=== PATIENT | male | born 1985 | race Caucasian/White ===

== ENCOUNTER 2020-01-06 15:16 | Outpatient (REF) | payer OTHER, SELFPAY | END 2020-01-06 15:17 | disposition home or self-care (01) | LOC: HO.LNP 15:16 | PROVIDERS: Visit Provider Family Medicine | DX: Z13.89 Encounter for screening for other disorder (principal) ==

== ENCOUNTER 2020-02-17 10:40 | Outpatient (REF) | payer OTHER, SELFPAY ==
[2020-02-17 12:43] LABS: SARS COV2 IgG Negative (Negative)
== END 2020-02-17 10:41 | disposition home or self-care (01) ==
LOC: HO.WFDLDS 10:40
PROVIDERS: PCP Internal Medicine; Visit Provider Family Medicine
DX: Z20.828 Contact with and (suspected) exposure to other viral communicable diseases (principal)
CPT/HCPCS: 86769

== ENCOUNTER 2020-02-26 10:39 | Outpatient (REF) | payer OTHER, SELFPAY ==
[2020-02-27 05:03] LABS: SARS COV2 IgG Negative (Negative)
== END 2020-02-26 10:40 | disposition home or self-care (01) ==
LOC: HO.WFDLDS 10:39
PROVIDERS: Visit Provider Family Medicine
DX: Z20.828 Contact with and (suspected) exposure to other viral communicable diseases (principal)
CPT/HCPCS: 86769; U0003

== ENCOUNTER 2020-03-17 10:39 | Outpatient (REF) | payer OTHER, SELFPAY ==
--- NOTE | 2020-03-17 14:54 | PFT_ITS ---
INDICATIONS: COVID-19 infection. SPIROMETRY: The FEV1 to FVC of 87% with an FEV1 of 5.56 L, which is 107% predicted with an FVC of 6.37 L, which is 98% predicted. No significant response to bronchodilators noted. Maximum voluntary ventilation 96% predicted. LUNG VOLUMES: Total lung capacity 98% predicted with residual volume of 77% predicted, and expiratory reserve volume of 87% predicted. DIFFUSION CAPACITY: DLCO 93% predicted. FLOW VOLUME LOOP: The patient does have a normal flow volume loop during the expiratory phase; however, does have some saw-tooth pattern and plateauing of the flows during the inspiratory flow suggesting of a dynamic extrathoracic upper airway obstruction or redundant tissue in the vocal cords or vocal cord dysfunction. COMPARISONS: None. INTERPRETATION: No obstructive nor restrictive ventilatory defects based on spirometry and lung volumes. No evidence of any response to bronchodilators. Normal maximum voluntary ventilation. Normal diffusion capacity. Again, based on flow volume loop, the patient may have some degree of an upper airway extrathoracic obstruction likely due to either vocal cord dysfunction or redundant tissue of the larynx resulting in the decrease inspiratory flow. Further evaluation warranted if the patient continues to be symptomatic with a pulmonary consultation. MD DIETER De La Torre/MODJacinda / [id number]
== END 2020-03-17 10:40 | disposition home or self-care (01) ==
LOC: HO.RESP 10:39
PROVIDERS: PCP Family Medicine; Visit Provider Family Medicine
DX: U07.1 COVID-19 (principal)
CPT/HCPCS: 94060; 94727; 94729

== ENCOUNTER 2020-04-01 11:01 | Outpatient (REF) | payer OTHER, SELFPAY ==
[2020-04-02 08:42] LABS: SARS COV2 IgG Negative (Negative)
== END 2020-04-01 11:02 | disposition home or self-care (01) ==
LOC: HO.WFDLDS 11:01
PROVIDERS: Visit Provider Family Medicine
DX: U07.1 COVID-19 (principal)
CPT/HCPCS: 36415; 86769; C9803; U0003; U0005

== ENCOUNTER → 2020-04-03 10:09 | Outpatient (REF) | payer OTHER, SELFPAY ==
--- NOTE | 2020-04-03 10:13 | CA_ITS ---
Transthoracic Echocardiogram Patient (Last, First, Middle): Natanael Lindsey, Gender: Male Date of : 1985 Age: 34 Procedure Date: 04/03/2020 Procedure Type: Transthoracic Echocardiogram Location: OP Height: 193.04 cm Weight: 106.6 kg BSA: 2.37 m2 Heart Rate: bpm BP: 110 / 76 mmHg Criminal Defense Attorney: CAITY Owen MD: Cezar Santiago MD Symptoms: U07.1 - COVID-19 Study Quality: Fair ECG Rhythm: Sinus Conclusions: - The left ventricular systolic function is mildly decreased. The calculated ejection fraction is 51% by biplane method. - No obvious valvular pathology seen on this study. Findings Left Ventricle Normal left ventricular cavity size. There is normal left ventricular wall thickness. The left ventricular systolic function is mildly decreased. The calculated ejection fraction is 51% by biplane method. There is mild global hypokinesis. Diastolic function is normal for age. Right Ventricle Normal right ventricular cavity size and systolic function. Atria The left atrium is normal in size. The right atrium is normal in size. Aortic Valve There is a normal trileaflet aortic valve. There is no aortic valve stenosis. There is no aortic valve regurgitation. Mitral Valve The mitral valve appears normal. There is no mitral valve regurgitation. There is no mitral valve stenosis. Pulmonic Valve The pulmonic valve was not well visualized. Tricuspid Valve Normal tricuspid valve structure. There is trace tricuspid valve regurgitation. The pulmonary artery systolic pressure is normal. Great Vessels The aortic annulus, sinuses of valsalva, asc aorta, and aortic arch are normal in size. Venous The inferior vena cava is mildly dilated and collapses greater than 50% with inspiration. Pericardium/Pleural There is no evidence of pericardial effusion. Prior Study Comparison No prior study available for comparison. Recommendations, Care & Conclusions No obvious valvular pathology seen on this study. Measurements M-Mode Liner Measurements Normals - Women/Men AOV Cusps: 2.20 1.5-2.6 cm/m2 2D Linear Measurements IVSd: 0.91 0.6-0.9/0.6-1.0 cm LVIDd: 5.28 3.9-5.3/4.2-5.9 cm LVIDd Index: 2.23 2.4-3.2/2.2-3.1 cm/m2 LVIDs: 3.67 2.0-3.6 cm LVPWd: 0.97 0.7-1.1 cm Ao Root: 3.00 2.1-3.5 cm LA Diam: 2.90 2.7-3.8/3.0-4.0 cm LAIDs Index: 1.22 1.5-2.3 cm/m2 LV Mass: 228.50 67-162/88-224 g LV Mass Index: 96.41 43-95/49-115 g/m2 LVOT Diam: 2.40 3.0+(-)1.3 cm 2D Systolic Function EF 4C: 57.20 >55% EF 2C: 46.40 >55% EF BiP: 50.70 >55% Mitral Valve MV Pk E: 0.87 MV PK A: 0.84 MV Decel Time: 190.00 E/A: 1.00 E'Lateral: 13.90 E'Medial: 10.30 E/E' Med: 8.50 E/E' Lat: 6.30 PHT: 56.00 MVA PHT: 3.93 Decel [place]: 4.59 Aortic Valve AoV Pk Siva: 1.23 AoV Pk Grad: 6.00 LVOT LVOT Pk Siva: 0.95 LVOT Mn Siva: 0.67 LVOT VTI: 0.19 LVOT Pk Grad: 4.00 LVOT Mn Grad: 2.00 LVOT Diam: 2.40 LVOT Area: 4.52 Diastolic Function MV Pk E: 0.87 MV Pk A: 0.84 E/A: 1.00 E'Medial: 10.30 E/E' Med: 8.50 E' Laterial: 13.90 E/E' Lat: 6.30 Tricuspid Valve TR Pk Siva: 1.89 TR Pk Grad: 14.00 RA Press: 8.00 RVSP: 22.00 Great Vessels Aorta Ao Root-2D: 3.00 2.0-3.7 cm Ao Asc: 3.10 2.1-3.4 cm Ao Arch: 2.30 Pulmonary Valve PV Pk Siva: 1.03 Peak PV Grad: 4.00 Updated in Other Vendor System with Status of Final Camron Burgess MD electronically signed on 04/04/2020 3:11:39 PM with status of Final
--- NOTE | 2020-04-03 10:13 | ECG_ITS ---
Test Reason : COVID Blood Pressure : / mmHG Vent. Rate : 096 BPM Atrial Rate : 096 BPM P-R Int : 160 ms QRS Dur : 104 ms QT Int : 368 ms P-R-T Axes : 063 043 036 degrees QTc Int : 464 ms Normal sinus rhythm Normal ECG No previous ECGs available Referred By: Cezar Santiago Electronically Signed By:YARIEL YEBOAH
== END ==
LOC: HO.CARD 10:09
PROVIDERS: PCP Family Medicine; Visit Provider Family Medicine
DX: U07.1 COVID-19 (principal)
CPT/HCPCS: 93005; 93306

== ENCOUNTER 2020-04-13 07:59 | Outpatient (REF) | payer OTHER, SELFPAY ==
[2020-04-13 10:55] LABS: Alanine Aminotransferase 27 U/L (0-40); Albumin Level 4.2 g/dL (3.5-5.0); Alkaline Phosphatase 56 U/L (39-117); Anion Gap 11 (12-20); Aspartate Amino Transferase 21 U/L (5-37); Bilirubin Total 1.1 mg/dL (0.0-1.0); Blood Urea Nitrogen 14 mg/dL (9-16); Calcium 9.1 mg/dL (8.4-10.2); Carbon Dioxide 32 mmol/L (22-29); Chloride 102 mmol/L (96-108); Estimated Glomerular Filt Rate > 60; Glucose Random 110 mg/dL (60-115); Potassium 3.9 mmol/L (3.3-5.1); Sodium 141 mmol/L (135-145); Total Protein 6.6 g/dL (6.5-8.0)
[2020-04-16 15:16] LABS: Testosterone, Free 110.4 pg/mL (35.0-155.0); Testosterone, Total 440 ng/dL (250-1100)
== END 2020-04-13 08:00 | disposition home or self-care (01) ==
LOC: HO.WFDLDS 07:59
PROVIDERS: PCP Family Medicine; Visit Provider Family Medicine
DX: Z00.00 Encounter for general adult medical examination without abnormal findings (principal); N62 Hypertrophy of breast
CPT/HCPCS: 36415; 80053; 84402; 84403; 84443

== ENCOUNTER 2020-04-23 10:15 | Outpatient (REF) | payer OTHER, SELFPAY | END 2020-04-23 10:16 | disposition home or self-care (01) | LOC: HO.XRAY 10:15 | PROVIDERS: Visit Provider Otolaryngology | DX: Z13.89 Encounter for screening for other disorder (principal) ==

== ENCOUNTER 2020-05-01 09:24 | Outpatient (REF) | payer OTHER, SELFPAY ==
--- NOTE | ~2020-05-01 | FL_ITS ---
PROCEDURE: FL BARIUM SWALLOW CLINICAL INFORMATION: Dysphagia. COMPARISON: None TECHNIQUE: Barium swallow examination is performed using fluoroscopic evaluation in addition to multiple fluoroscopic spot views. The patient is imaged both upright and prone and using both thick and thin sulfate along with effervescent granules. Fluoroscopy time: 1.9 minutes DAP: 20.756 Gycm2 Images: 54 FINDINGS: Following oral administration of thin, thick barium and barium-coated turkey in upright view there is normal propagation of bolus from the oral cavity through the pharynx, esophagus into stomach without any evidence of obstruction, narrowing or stricture. On placing patient prone lying and oral administration of thin barium there is good distention of esophagus without any hiatal hernia. There is mild gastroesophageal reflux in prone lying position. FL/FL barium swallow IMPRESSION: Mild gastroesophageal reflux without hiatal hernia.
== END 2020-05-01 09:25 | disposition home or self-care (01) ==
LOC: HO.XRAY 09:24
PROVIDERS: PCP Family Medicine; Visit Provider Otolaryngology
DX: R13.10 Dysphagia, unspecified (principal)
CPT/HCPCS: 74220

== ENCOUNTER 2020-05-26 15:23 | Outpatient (REF) | payer OTHER, SELFPAY ==
--- NOTE | ~2020-05-26 | XR_ITS ---
EXAMINATION: XR knee standing BI, XR knee LT 2V CLINICAL INFORMATION: Reason for Exam M25.561 - Pain in right knee COMPARISON: None available at the time of this dictation. TECHNIQUE: Bilateral frontal, left lateral patella sunrise view. FINDINGS: BONES: No fracture or dislocation is present. JOINTS: Medial and lateral joint spaces are preserved. SOFT TISSUE: Normal XR/XR knee standing BI IMPRESSION: Normal radiograph. Joint spaces are preserved. No joint effusion.
--- NOTE | ~2020-05-26 | XR_ITS ---
EXAMINATION: XR knee standing BI, XR knee LT 2V CLINICAL INFORMATION: Reason for Exam M25.561 - Pain in right knee COMPARISON: None available at the time of this dictation. TECHNIQUE: Bilateral frontal, left lateral patella sunrise view. FINDINGS: BONES: No fracture or dislocation is present. JOINTS: Medial and lateral joint spaces are preserved. SOFT TISSUE: Normal XR/XR knee LT 2V IMPRESSION: Normal radiograph. Joint spaces are preserved. No joint effusion.
== END 2020-05-26 15:24 | disposition home or self-care (01) ==
LOC: HO.HOSX 15:23
PROVIDERS: Visit Provider Orthopaedic Surgery
DX: M25.562 Pain in left knee (principal); M25.561 Pain in right knee
CPT/HCPCS: 73560; 73565

== ENCOUNTER → 2020-05-27 11:03 | Outpatient (BNVA) | payer OTHER, SELFPAY | PROVIDERS: PCP Family Medicine; Visit Provider Orthopaedic Surgery | DX: M22.2X2 Patellofemoral disorders, left knee (principal) | CPT/HCPCS: 99202 ==

== ENCOUNTER 2020-05-28 10:55 | Outpatient (REF) | payer OTHER, SELFPAY ==
--- NOTE | ~2020-05-28 | MM_ITS ---
EXAMINATION: MM DIAGNOSTIC DIGITAL BREAST TOMOSYNTHESIS, BILATERAL US BILATERAL BREAST ULTRASOUND CLINICAL INFORMATION: Hypertrophy of the breasts. COMPARISON: Mammography: None. TECHNIQUE: Digital breast tomosynthesis is performed in both the craniocaudal and mediolateral oblique views along with computer-aided detection (CAD). Synthesized 2D images are generated from the tomosynthesis. Bilateral breast ultrasound. FINDINGS: The breasts are almost entirely fatty (ACR BI-RADS breast composition Category a). There are no significant masses, abnormal calcifications, or other abnormalities. Bilateral breast ultrasound was then performed with no abnormal cystic or solid mass identified. No region of abnormal distal sound shadowing appreciated. Results are discussed with the patient at time of visit. MM/MM tomosynthesis diagnostic BI IMPRESSION: No specific mammographic or ultrasound findings to suggest malignancy. Mild gynecomastia. ASSESSMENT: BI-RADS 2: Benign. RECOMMENDATION: Clinical follow-up. This patient's information was entered into a reminder system with a target due date for their next mammogram.
--- NOTE | ~2020-05-28 | US_ITS ---
EXAMINATION: US DIAGNOSTIC ULTRASOUND BREAST, right breast CLINICAL INFORMATION: Hypertrophy. COMPARISON: Mammography of same day.. TECHNIQUE: Ultrasound of the breast is performed with real-time dia scale imaging and color Doppler. FINDINGS: Bilateral breast ultrasound was then performed with no abnormal cystic or solid mass identified. No region of abnormal distal sound shadowing appreciated. No edematous change identified. Results are discussed with the patient at time of visit. US/US breast RT limited IMPRESSION: No specific mammographic or ultrasound findings to suggest malignancy. Mild gynecomastia. ASSESSMENT: BI-RADS 2: Benign RECOMMENDATION: Clinical follow-up
--- NOTE | ~2020-05-28 | US_ITS ---
EXAMINATION: US DIAGNOSTIC ULTRASOUND BREAST, LEFT CLINICAL INFORMATION: Hypertrophy. COMPARISON: Mammography of same day. TECHNIQUE: Ultrasound of the breast is performed with real-time dia scale imaging and color Doppler. FINDINGS: Bilateral breast ultrasound was then performed with no abnormal cystic or solid mass identified. No region of abnormal distal sound shadowing appreciated. No edematous change within the parenchyma. Results are discussed with the patient at time of visit. US/US breast LT limited IMPRESSION: No specific mammographic or ultrasound findings to suggest malignancy. Mild gynecomastia. ASSESSMENT: BI-RADS 2: Benign RECOMMENDATION: Clinical follow-up
== END 2020-05-28 10:56 | disposition home or self-care (01) ==
LOC: HO.MAMMO 10:55
PROVIDERS: Visit Provider Family Medicine
DX: N62 Hypertrophy of breast (principal)
CPT/HCPCS: 76642; 77062; 77066

== ENCOUNTER 2020-06-24 10:00 | Outpatient (RCR) | payer OTHER, SELFPAY ==
--- NOTE | 2020-05-11 10:15 | MHC.PT.OD ---
[facility] [place] Office [place] Office [place] Office [address] Norma Lopez [address] [phone] F: [phone] F: [phone] F: [phone] F: [phone] Physical Therapy Daily Note Diagnosis: M25.562 Pain in L knee M25.561 Pain in R knee referred to PT from PCP Dr. Santiago 04/24/20 Date of Surgery: NA Date of Evaluation: 05/04/20 Date of Treatment: 05/11/20 Treatments to Date: 3 Cancellations to Date: 0 No Shows to Date: Authorized Visits: 1 Insurance End Date: Precautions/ Contraindications:NONE SPECIFIED Subjective: Pt reports having lack of confidence with descending stairs when carrying his daughter; has an appt with PCP today re: RTW status. Pain Score and Location: 3 L>R Objective Flowsheet: Tests & Measures Rates pain sometimes increases to 7/10 when kneeling/loading L knee Reports 2-3/10 at rest Exercises UPRIGHT BIKE SEAT HEIGHT 10 [address]AT ALMOST ALL THE WAY BACK LEVEL 4 X 10 MIN WARM UP. REV OF Kneeling psoas hip flexor stretch while KNEELING on airex, modified prone lying psoas stretch on table x 30 sec holdS B, Prone quad stretch with strap x 4R x 20 sec hold. LONGSIT HS STRETCH; HL FIG 4 PIRIFORMIS STRETCH, STRENGTHENING OF SLR full ROM with eccentric hold on lower x 5 sec, SL hip adduction x 2 sets 10R Physioball bridge with 5 sec hold x 2 sets 10R, Prone hip extension with blue theraband around ankle x 2 sets 10R over pball Would benefit from progression core/hip dynamic lumbar stab with progression to CKC as toleated Standing 4 way hip Wall squat as pt has poor ability weight shifting // pball wall squat/weight shifting Trial of eccentric heel touch on 6 inch- poor control and pain verbalized - pt noted to compensate with trunk- reduced to 4 inch and later 2 inch with improved ability completed 2 sets 10R with 2 inch on L, R able to complete 6 inch without evidence of instability/pain Pt requesting to hold on taping today- wishes to to shave his knee Did verbalize improvement/reduction in sx with taping last session. 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 He exhibits decreased L SLS control during activities challenged with lateral 2 inch step downs on the L LE vs R LE. He exhibits some symptoms of lower back weakness and was challenged with dynamic stabilization tasks in the clinic today. He was encouraged to increase the frequency of his quad and HS stretching. He received taping trial of offload the tibiofemoral joint with (+) response last time; will be showing him how to tape himself for home however pt deferred tape today. He exhibits slight lateral tracking of his patellar and would benefit from continued therapy at a frequency 2x/week x 4 weeks to meet STG/LTG, progress CKC, and resume ability to jog>run confidently. PT Plan: CONTINUE WITH LE STRETCHING; dynamic/CKC STRENGTHENING as tolerated , ASSESS TAPE and educate for self care Short Term Goals: 1. Negative Cezar test for quadriceps/psoas. 2. Strength SLR 5/5 B with no pain in lumbar region. 3. Demonstrate functional squat with no posterior LOB. 4. Resume gym activities with MOD I joint protection measures. Group Home Goals: 1. Negotiate stairs reciprocally with good dynamic balance. 2. RTW full duty with knee pain <2/10. 3. Strength hip ext 5/5 (-) lumbar instability testing. Electronically signed by: Karen SERNA, PT, DPT
--- NOTE | 2020-05-22 13:28 | MHC.PT.OD ---
[facility] [place] Office [place] Office [place] Office [address] Norma Lopez [address] [phone] F: [phone] F: [phone] F: [phone] F: [phone] Physical Therapy Daily Note Diagnosis: M25.562 Pain in L knee M25.561 Pain in R knee referred to PT from PCP Dr. Santiago 04/24/20 Date of Surgery: NA Date of Evaluation: 05/04/20 Date of Treatment: 05/20/20 Treatments to Date: 5 Cancellations to Date: 1 No Shows to Date: Authorized Visits: 1 Insurance End Date: Precautions/ Contraindications:NONE SPECIFIED Subjective: Pt REPORTS MOST PROBLEM WITH L KNEE IS INN STAIRS Pain Score and Location: 4 L KNEE Objective Flowsheet: Tests & Measures Rates pain sometimes increases to 7/10 when kneeling/loading L knee Reports 2-3/10 at rest Exercises UPRIGHT BIKE SEAT HEIGHT [address] BACK LEVEL 4 X 10 MIN WARM UP. QUAD SET L (REPORTING POP) SO KT FOR PAT REALIGN THEN CONTINUED WITH QUAD WORK (LESS POP NOTED), SLR,SLR WITH HIP ER,HL HIP ADD X 10 R EA, ITB STRETCH IN STAND AND SL FOR L, STEP UPS ON 6 INCH STEP, LUNGE L WITH TOE TAPS R ON 6 INCH STEP X [address] HIP WITH RED TB X 20 R EA DIRECTION B, LUNGE POSITION ON 6 INCH STEP FOR TAP UPS R AND L ANT AND LAT, SLS R AND L ON BLUE FOAM PD FOR 3 WAY UPPER BODY WORK WITH RED TB X 20 EA DIRECTION,WALL SLIDE X 3 SETS OF 10, LUNGES ON BOSU (BLUE SIDE) X 2 SETS OF 10 (Pt REPORTS UNABLE TO DO 3RD SET BECAUSE OF PAIN/FATIGUE L KNEE), BOSU BLACK SIDE UP FOR BALANCED SQUAT X 2 MIN, SEATED SELF TB ROLLER L QUAD AT END OF SESSION F/B KT (PER Pt REQUEST/KNEE NOT SHAVED) FOR L KNEE (TO UNLOAD FAT PAD WITH 3 I STRIPS TO FORM V AND U (Pt WOULD LIKE TO TRY ON OWN AT HOME BECAUSE HE REPORTS SOME RELIEF ON STAIRS IASTM HG 7 AND HG 9 DISTAL QUAD (ERYTHEMA RESPONSE RECTUS FEMORIS), KT FOR L KNEE TO DECREASE LAT TILT, INF TILT, AND SLIGHT ER WITH ED RE WEAR AND REMOVAL AND IF RELIEF TO SHAVE FOR NEXT VISIT (ELENA SUTHERLAND) Modalities Assessment: LESS POP WITH QUAD WORK WITH TAPE BUT STILL SOME IN STAND (?MENISCUS INVOLVEMENT) PT Plan: ASSESS STAIRS AT HOME WITH TAPE, CONTINUE WITH LE STRETCHING; dynamic/CKC STRENGTHENING as tolerated , ASSESS TAPE and educate for self care Short Term Goals: 1. Negative Cezar test for quadriceps/psoas. 2. Strength SLR 5/5 B with no pain in lumbar region. 3. Demonstrate functional squat with no posterior LOB. 4. Resume gym activities with MOD I joint protection measures. Care Home Goals: 1. Negotiate stairs reciprocally with good dynamic balance. 2. RTW full duty with knee pain <2/10. 3. Strength hip ext 5/5 (-) lumbar instability testing. Electronically signed by: RAY COOPER PT
--- NOTE | 2020-05-25 11:23 | MHC.PT.OD ---
[facility] [place] Office [place] Office [place] Office [address] Norma Lopez [address] [phone] F: [phone] F: [phone] F: [phone] F: [phone] Physical Therapy Daily Note Diagnosis: M25.562 Pain in L knee M25.561 Pain in R knee referred to PT from PCP Dr. Santiago 04/24/20 Date of Surgery: NA Date of Evaluation: 05/04/20 Date of Treatment: 05/25/20 Treatments to Date: 6 Cancellations to Date: 1 No Shows to Date: Authorized Visits: 1 Insurance End Date: Precautions/ Contraindications:NONE SPECIFIED Subjective: Pt reports pain is persisting when descending stairs on L knee, has pain with loading L knee for squat at 90 degrees. Pain Score and Location: 4 L KNEE Objective Flowsheet: Tests & Measures Not carrying anything 1-2/10 when carrying 3-5/10 Exercises UPRIGHT BIKE SEAT HEIGHT 11 SEAT ALL THE WAY BACK LEVEL 4 X 10 MIN WARM UP. Review of kneeling psoas stretch on table x 4R, 3 way SLR (hip add/ext/flex) x 2 sets Step up onto 6 inch step with L LE in stance hip ext/laterally, Heel touch off 4 inch step L LE in stance Step up 6 inch with pulses posterior/laterally x 10R each. Bridge on pball with head on mat x 20R with cues for core control Triple thread bridge HS curl combo x 10R with report of L/S fatigue reported. Reviewed prevously issued HEP with education to add mini wall squat to 45 as long as NOT painful ROM. Encouraged ongoing stretches for HS, hip flexor. Blue side bosu up ( L LE in front) with airex pad in back) Modified lunge with goal 90/90 with use of UE support x 5 reps with cues for alignment/form weight shift.Pt unable to perform with L LE back full ROM due to pain. Pt challenged with air squat and loses his balance posteriorly when he has GER more narrow than shoulder width. Trial of Whitney tape for medial glide with improved tolerance for mini squat on wall to 45. Pt stressed need to be able to squat to 90- shortly after trial of squatting 90 medial knee pain reported despite trial of whitney tape trial. Modalities Assessment: Pt has attended 5 sessions to date, verbalizing ongoing concern; states L LE not as stable. He reports anterior medial knee pain joint line, denies tenderness to palpation- present with increased loading or weight-bearing of L knee. Limited tolerance for L SLS exercise tasks which involve loading of L LE. He reports pain with end range flexion medial joint line. He was trialed with Whitney taping today in effort to improve medial tracking of patella with limited change (was able to squat a few reps to 90 but then sx returned). Pt reports inability to load, weight bear through his L or descend stairs with full confidence while carrying something. Pt may benefit from referral to orthopedist ? 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 ? meniscal involvement. Pt to see Dr. Santiago re: ?RTW following session today. He does demonstrate some improvement in quad strength when compared to previous assessment during SLR. PT Plan: See Dr. Santiago, ? RTW, ? refer to orthopedics. Await plan Short Term Goals: 1. Negative Cezar test for quadriceps/psoas. 2. Strength SLR 5/5 with no pain in lumbar region/ Technical Systems Architect Goals: Negotiate stairs with good dynamic balance. 2. RTW full duty with kne pain <2/10. Electronically signed by: Karen Briceño, PT, DPT
== END 2020-08-07 12:44 | disposition other institution (70) ==
LOC: HO.PTWFD 10:00
PROVIDERS: Visit Provider Family Medicine
DX: M25.561 Pain in right knee (principal); M25.562 Pain in left knee
CPT/HCPCS: 97110; 97140; 97162; 97530; 97535

== ENCOUNTER → 2020-08-05 13:16 | Outpatient (BNVA) | payer OTHER, SELFPAY | PROVIDERS: PCP Family Medicine; Visit Provider Internal Medicine Endocrinology, Diabetes & Metabolism | DX: N62 Hypertrophy of breast (principal) | CPT/HCPCS: 99202 ==

== ENCOUNTER 2020-08-07 08:19 | Outpatient (REF) | payer OTHER, SELFPAY ==
[2020-08-07 09:38] LABS: Alanine Aminotransferase 27 U/L (0-40); Albumin Level 4.6 g/dL (3.5-5.0); Alkaline Phosphatase 64 U/L (39-117); Aspartate Amino Transferase 32 U/L (5-37); Bilirubin Direct 0.4 mg/dL (0.0-0.5); Bilirubin Total 0.8 mg/dL (0.0-1.0); Total Protein 7.2 g/dL (6.5-8.0)
[2020-08-07 10:00] LABS: Free T4 (Free Thyroxine) 0.93 ng/dL (0.71-1.85)
[2020-08-08 08:32] LABS: HCG Tumor Marker <3 mIU/mL (<5)
[2020-08-08 09:17] LABS: Sex Hormone Binding Globulin 21 nmol/L (10-50)
[2020-08-08 16:56] LABS: Follicle Stimulating Hormone 1.6 mIU/mL (1.6-8.0); Lutenizing Hormone 4.7 mIU/mL (1.5-9.3); Prolactin 5.5 ng/mL (2.0-18.0)
[2020-08-11 12:01] LABS: Alpha Fetoprotein 0.8 ng/mL (<6.1)
[2020-08-12 16:46] LABS: Testosterone-Albumin 4.6 g/dL (3.6-5.1); Testosterone-Bioavailable 232.2 ng/dL (110.0-575.0); Testosterone-Free 110.6 pg/mL (46.0-224.0); Testosterone-SHBG 19 nmol/L (10-50); Testosterone-Total 536 ng/dL (250-1100)
[2020-08-13 19:32] LABS: Testosterone, Free 125.3 pg/mL (35.0-155.0); Testosterone, Total 562 ng/dL (250-1100)
[2020-08-15 01:12] LABS: Estradiol Free 1.03 pg/mL; Estradiol, Ultrasensitive 40 pg/mL
== END 2020-08-07 08:20 | disposition home or self-care (01) ==
LOC: HO.LAB 08:19
PROVIDERS: PCP Family Medicine; Visit Provider Internal Medicine Endocrinology, Diabetes & Metabolism
DX: N62 Hypertrophy of breast (principal)
CPT/HCPCS: 36415; 80076; 82105; 82670; 82672; 82681; 83001; 83002; 84146; 84270; 84402; 84403; 84439; 84443; 84702

== ENCOUNTER 2020-08-25 08:31 | Outpatient (REF) | payer OTHER, SELFPAY ==
[2020-08-26 10:01] LABS: Sex Hormone Binding Globulin 27 nmol/L (10-50)
[2020-09-02 15:01] LABS: Estrogen 117.7 pg/mL (60-190)
[2020-09-03 01:07] LABS: Estradiol Free 0.78 pg/mL; Estradiol, Ultrasensitive 28 pg/mL
== END 2020-08-25 08:32 | disposition home or self-care (01) ==
LOC: HO.LAB 08:31
PROVIDERS: PCP Family Medicine; Visit Provider Internal Medicine Endocrinology, Diabetes & Metabolism
DX: N62 Hypertrophy of breast (principal)
CPT/HCPCS: 36415; 82670; 82672; 82681; 84270

== ENCOUNTER 2020-08-27 13:28 | Outpatient (REF) | payer OTHER, SELFPAY ==
--- NOTE | ~2020-08-27 | US_ITS ---
EXAMINATION: US SCROTUM CLINICAL INFORMATION: Hypertrophy of breast. COMPARISON: None TECHNIQUE: A sonogram of the scrotum was performed assessing dia-scale appearance and color Doppler flow. Spectral Doppler analysis of the arterial and venous flow were performed in the testes bilaterally. FINDINGS: RIGHT: Right testicle measures 5.2 x 2.4 x 3.1 cm, volume 19.9 mL. No focal testicular parenchymal lesions are visualized. Spectral Doppler analysis of the arterial and venous flow is normal in the right testis. Right epididymal head is normal in size. No right hydrocele or varicocele is seen. Right epididymal Doppler flow is normal. LEFT: Left testicle measures 4.7 x 2.7 x 3.5 cm, volume 23.3 mL. No focal testicular parenchymal lesions are visualized. Spectral Doppler analysis of the arterial and venous flow is normal in the left testis. Left epididymal head is normal in size. No left hydrocele or varicocele is seen. Left epididymal Doppler flow is normal. US/US scrotum IMPRESSION: Normal scrotal ultrasound.
== END 2020-08-27 13:29 | disposition home or self-care (01) ==
LOC: HO.US 13:28
PROVIDERS: Visit Provider Internal Medicine Endocrinology, Diabetes & Metabolism
DX: N62 Hypertrophy of breast (principal)
CPT/HCPCS: 76870

== ENCOUNTER → 2020-09-02 13:18 | Outpatient (BNVA) | payer OTHER, SELFPAY | PROVIDERS: PCP Family Medicine; Visit Provider Internal Medicine Endocrinology, Diabetes & Metabolism ==

== ENCOUNTER 2020-11-12 07:25 | Outpatient (REF) | payer OTHER, SELFPAY ==
[2020-11-12 12:06] LABS: Cholesterol 130 mg/dL; HDL Cholesterol 44 mg/dL; LDL Cholesterol Calculated 77 mg/dl; Triglycerides 45 mg/dL
[2020-11-12 12:30] LABS: HBS Num1 > 1000.00 mIU/mL (0-7.99); HBc Num1 0.06 S/CO (0.00-0.79); HBsAGNum1 0.24 S/CO (0.00-0.99); HIV AB/AG Nonreactive (Nonreactive); HIV Num 1 0.09 S/CO (0.00-0.99); Hepatitis B Core Antibody Nonreactive (Nonreactive); Hepatitis B Surface Antigen Negative (Negative); ~HepC Num1 0.13 S/CO (0.00-0.79); ~Hepatitis B Surface Antibody REACTIVE (Nonreactive); ~Hepatitis C Antibody Nonreactive (Nonreactive)
[2020-11-13 10:23] LABS: Syphilis Screen Nonreactive (Nonreactive)
== END 2020-11-12 07:26 | disposition home or self-care (01) ==
LOC: HO.WFDLDS 07:25
PROVIDERS: Visit Provider Family Medicine
DX: Z00.00 Encounter for general adult medical examination without abnormal findings (principal); Z11.3 Encounter for screening for infections with a predominantly sexual mode of transmission; Z11.4 Encounter for screening for human immunodeficiency virus [HIV]
CPT/HCPCS: 36415; 80061; 86704; 86706; 86780; 86803; 87340; 87389

== ENCOUNTER 2020-12-29 13:35 | Outpatient (REF) | payer OTHER, SELFPAY ==
--- NOTE | ~2020-12-29 | XR_ITS ---
EXAMINATION: XR FOOT, LEFT CLINICAL INFORMATION: Pain in the third metatarsal area. COMPARISON: None TECHNIQUE: AP, lateral, and oblique views of the left foot. FINDINGS: There is no fracture or dislocation. There is irregularity along the medial base of the third digit proximal phalanx with minimal adjacent ossification or calcification. This is of uncertain etiology. This does not have an acute appearance. This could be associated with previous trauma. Joint spaces are maintained. Soft tissues are unremarkable. XR/XR foot LT min 3V IMPRESSION: Mild irregularity at the medial base of the third digit proximal phalanx with adjacent soft tissue calcification or ossification. This is of uncertain etiology. This could be associated with prior trauma. No acute abnormality.
[2020-12-30 09:05] LABS: HBS Num1 > 1000.00 mIU/mL (0-7.99); HBc Num1 0.07 S/CO (0.00-0.79); HBsAGNum1 0.17 S/CO (0.00-0.99); HIV AB/AG Nonreactive (Nonreactive); HIV Num 1 0.05 S/CO (0.00-0.99); Hepatitis A Antibody IgM 0.15 Index (0-0.79); Hepatitis B Core Antibody Nonreactive (Nonreactive); Hepatitis B Surface Antigen Negative (Negative); ~Hepatitis A Antibody IgM Nonreactive (Nonreactive); ~Hepatitis B Surface Antibody REACTIVE (Nonreactive); ~Hepatitis C Antibody Nonreactive (Nonreactive)
== END 2020-12-29 13:36 | disposition home or self-care (01) ==
LOC: HO.XRAY 13:35
PROVIDERS: PCP Family Medicine; Visit Provider Hospitalist
DX: M79.675 Pain in left toe(s) (principal); Z20.2 Contact with and (suspected) exposure to infections with a predominantly sexual mode of transmission
CPT/HCPCS: 36415; 73630; 86704; 86706; 86709; 86803; 87086; 87340; 87389

== ENCOUNTER 2020-12-29 15:40 | Outpatient (REF) | payer OTHER, SELFPAY ==
[2020-12-30 10:10] LABS: CT PCR NOT DETECTED (Not Detect.); NG PCR NOT DETECTED (Not Detect.)
== END 2020-12-29 15:41 | disposition home or self-care (01) ==
LOC: HO.LAB 15:40
PROVIDERS: Visit Provider Hospitalist
DX: Z20.2 Contact with and (suspected) exposure to infections with a predominantly sexual mode of transmission (principal)
CPT/HCPCS: 87491; 87591

== ENCOUNTER → 2020-12-31 13:29 | Outpatient (BNVA) | payer OTHER, SELFPAY | PROVIDERS: PCP Family Medicine; Visit Provider Internal Medicine ==

== ENCOUNTER 2021-01-04 07:46 | Outpatient (REF) | payer OTHER, SELFPAY ==
[2021-01-04 08:46] LABS: Alanine Aminotransferase 35 U/L (0-40); Albumin Level 4.2 g/dL (3.5-5.0); Alkaline Phosphatase 48 U/L (39-117); Anion Gap 10 (12-20); Aspartate Amino Transferase 39 U/L (5-37); Bilirubin Total 0.8 mg/dL (0.0-1.0); Blood Urea Nitrogen 15 mg/dL (9-16); Carbon Dioxide 27 mmol/L (22-29); Chloride 107 mmol/L (96-108); Estimated Glomerular Filt Rate > 60; Glucose Random 93 mg/dL (60-115); Potassium 4.2 mmol/L (3.3-5.1); Sodium 140 mmol/L (135-145); Total Protein 6.5 g/dL (6.5-8.0)
[2021-01-04 09:09] LABS: Free T4 (Free Thyroxine) 0.76 ng/dL (0.71-1.85); Thyroid Stimulating Hormone 1.73 uIU/mL (0.32-4.0)
[2021-01-04 09:27] LABS: Cortisol Random 11.2 ug/dL
[2021-01-05 09:00] LABS: HCG Tumor Marker <3 mIU/mL (<5)
[2021-01-05 20:01] LABS: Follicle Stimulating Hormone 2.5 mIU/mL (1.6-8.0); Lutenizing Hormone 10.3 mIU/mL (1.5-9.3); Prolactin 6.2 ng/mL (2.0-18.0)
[2021-01-05 21:52] LABS: Adrenocorticotropic Hormone 21 pg/mL (6-50)
[2021-01-05 22:16] LABS: DHEA Sulfate 300 mcg/dL (106-464); Sex Hormone Binding Globulin 30 nmol/L (10-50)
[2021-01-07 12:41] LABS: IGF-1 (Somatomedin C) 114 ng/mL (53-331); IGF-1 Z Score (Male) -0.5 SD (-2.0 - +2.0)
[2021-01-10 11:36] LABS: Testosterone, Free 214.3 pg/mL (35.0-155.0); Testosterone, Total 940 ng/dL (250-1100)
[2021-01-11 14:30] LABS: Estrogen 216.2 pg/mL (60-190)
[2021-01-14 22:02] LABS: Estradiol Free 1.81 pg/mL; Estradiol, Ultrasensitive 63 pg/mL
== END 2021-01-04 07:47 | disposition home or self-care (01) ==
LOC: HO.LAB 07:46
PROVIDERS: Internal Medicine; PCP Family Medicine; Visit Provider Family Medicine
DX: R79.89 Other specified abnormal findings of blood chemistry (principal)
CPT/HCPCS: 36415; 80053; 82024; 82533; 82627; 82670; 82672; 82681; 83001; 83002; 84146; 84270; 84305; 84402; 84403; 84439; 84443; 84702

== ENCOUNTER 2021-01-05 07:20 | Outpatient (REF) | payer OTHER, SELFPAY ==
[2021-01-05 09:43] LABS: Cortisol Random < 1.0 ug/dL
[2021-01-06 22:22] LABS: Adrenocorticotropic Hormone 5 pg/mL (6-50)
[2021-01-13 10:17] LABS: Dexamethasone 116 ng/dL
== END 2021-01-05 07:21 | disposition home or self-care (01) ==
LOC: HO.LAB 07:20
PROVIDERS: PCP Family Medicine; Visit Provider Internal Medicine
DX: N62 Hypertrophy of breast (principal)
CPT/HCPCS: 36415; 80299; 82024; 82533

== ENCOUNTER → 2021-01-28 08:53 | Outpatient (BNVA) | payer OTHER, SELFPAY | PROVIDERS: PCP Family Medicine; Visit Provider Physician Assistant ==

== ENCOUNTER 2021-07-05 11:10 | Outpatient (REF) | payer OTHER, SELFPAY ==
[2021-07-05 11:50] LABS: Influenza A PCR POSITIVE (Negative); Influenza B PCR NEGATIVE (Negative); Resp Syncy Virus RNA Qual PCR NEGATIVE (Negative); SARS COV2 PCR INHOUSE NEGATIVE (Negative)
== END 2021-07-05 11:11 | disposition home or self-care (01) ==
LOC: HO.LNP 11:10
PROVIDERS: Visit Provider Family Medicine
DX: Z20.822 Contact with and (suspected) exposure to COVID-19 (principal); R05.9 Cough, unspecified
CPT/HCPCS: 0241U

== ENCOUNTER 2022-10-27 13:47 | Outpatient (AMB) | payer OTHER, SELFPAY ==
--- NOTE | 2022-10-27 13:51 | MHC.PC.OV ---
Vital Signs 10/27/22 13:52 Height 6 ft 4 in Weight 268 lb BMI 32.6 BP 98/62 Blood Pressure Location Lt brachial Position Sitting Pulse 79 Pulse Source Pulse Oximeter Pulse Oximetry (%) 98 Oxygen Delivery Method Room Air Intake Visit Reasons: CPE with f/u labs and health maintenance Intake Note: Patient is here for his physical and 2 referrals, and [employer] denied short term disability. He needs letter stating why he needed short term disability Allergies No Known Allergies Allergy (Verified 08/11/22 14:31) Tobacco use date assessed: 10/27/22 Dental Screening Dental Screen Date: 10/27/22 Did you have a dental visit in the last 12 months?: Yes Did you have a dental problem in the last 6 months where you did not have access to dental care?: No Was dental information given to patient?: Patient has dentist HPI CPE with f/u labs and health maintenance HPI Details 37 y/o male presents for a CPE with f/u labs and health maintenance. No recent labs to review. Pt scores high for depression/anxiety today. He reports [employer] denied short term disability and needs a letter stating why he needs short term disability. Sun damage Lumbar spine He has been eating a healthy diet with vegetables. He has been exercising quite a bit. He reports exercise has been helping for his anxiety/depression. He is on citalopram 20mg daily. He notes he thinks this is helping. [facility] Medical History High serum estradiol Surgical History History of surgery Family History Mother No problems noted. Father No problems noted. 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 1. Little interest or pleasure in doing things: several days 2. Feeling down, depressed, or hopeless: several days 3. Trouble falling or staying asleep, or sleeping too much: nearly every day 4. Feeling tired or having little energy: more than half the days 5. Poor appetite or overeating: more than half the days 6. Feeling bad about yourself - or that you are a failure or have let yourself or your family down: more than half the days 7. Trouble concentrating on things, such as reading the newspaper or watching television: more than half the days 8. Moving or speaking so slowly that other people could have noticed. Or the opposite - being so fidgety or restless that you have been moving around a lot more than usual: more than half the days 9. Thoughts that you would be better off or of hurting yourself in some way: not at all Total score: 15 Depression Screening Interpretation: Positive [id number] - PHQ-9 Billing: Yes Source: Developed by Drs. Natanael Horta, Deandra Diaz, Frank Willis and colleagues, with an educational austin from [employer]. Thrive Questionnaire Date Thrive assessed: 03/16/21 SWATHI-7 AMB Questionnaire SWATHI-7 Date SWATHI - 7 assessed: 04/08/22 Feeling nervous, anxious, or on edge: 2 = More than half the days Not being able to stop or control worryin = More than half the days Worrying too much about different things: 3 = Nearly every day Trouble relaxin = Nearly every day Being so restless that it is hard to sit still: 2 = More than half the days Becoming easily annoyed or irritable: 2 = More than half the days Feeling afraid as if something awful might happen: 2 = More than half the days Total SWATHI-7 score (0-4 normal; 5-9 mild; 10-14 moderate; 15-21 severe): 16 Source: Developed by Drs. Natanael Horta, Frank Cabral and colleagues, with an educational austin from [employer]. SWATHI-7 Assessment Billing SWATHI-7 Assessment Tool: SWATHI-7 Assessment 32811 Review of Systems Const Denies chills, Denies fatigue, Denies fever(s), Denies headache(s) and Denies weakness Eyes Denies change in vision ENT Denies dizziness, Denies headache(s), Denies hearing loss, Denies nasal congestion, Denies sinus pain, Denies sinus pressure and Denies sore throat Card Denies chest pain, Denies lightheadedness, Denies dyspnea and Denies other (palpitations) Resp Denies cough, Denies dyspnea and Denies wheezing GI Denies abdominal pain, Denies melena, Denies hematochezia, Denies change in bowel habits, Denies dyspepsia and Denies nausea Denies hematuria and Denies dysuria Musc Denies abnormal gait, Denies myalgias, Denies arthralgias, Denies numbness and Denies tingling Skin/Breast Denies rash, Denies unusual bruising and Denies wounds Neuro Denies abnormal gait, Denies dizziness, Denies headache(s), Denies memory loss, Denies numbness, Denies Sensory deficit (Neuro), Denies tingling and Denies weakness Psych Reports anxiety, Reports depression and Denies memory loss Endo Denies cold intolerance, Denies fatigue, Denies heat intolerance, Denies polydipsia and Denies polyuria Ori/Lymph Denies easy bleeding and Denies easy bruising Aller/Immun Denies wheezing Physical exam (Primary Care) Vital Signs: Last Vital Signs Pulse 79 10/27/22 13:52 BP 98/62 10/27/22 13:52 Pulse Ox 98 10/27/22 13:52 Oxygen Delivery Method Room Air 10/27/22 13:52 BMI result Body Mass Index 32.6 Tobacco/Smoking Status: Tobacco use Status Tobacco use date assessed 10/27/22 10/27/22 13:59 Patient Tobacco Use Status Never used Tobacco 10/27/22 13:59 e-Cigarette/Vaping Use Never Used 10/27/22 13:59 PHQ-9: PHQ-9 Score PHQ-9: Total score 15 10/27/22 14:20 Depression Screening Interpretation: Positive Thrive Assessment: Date of Thrive Assessment Date Thrive assessed 03/16/21 10/27/22 13:59 Const General: no acute distress, well developed, alert and awake Nutritional Appearance: well nourished Orientation/consciousness: patient oriented x3 HENMT Head: Yes normocephalic and Yes atraumatic Ears: hearing grossly normal bilaterally and TM's normal bilaterally General nose exam: Normal external nose present and Normal nares present Mouth: Normal oral and palatal mucosa present and moist mucous membranes Teeth and gingiva: dentition normal Throat: Yes posterior oropharynx normal Eyes General: appearance normal, both eyes and all related structures Pupils: Equal, round and reactive pupils present and Pupil accommodation reflex normal EOM: EOMs intact bilaterally Neck Neck: Yes normal visual inspection, Yes no lymphadenopathy and Yes trachea midline Thyroid: Thyroid normal Carotids: no bruits Lymphatic: no lymphadenopathy noted Chest Chest palpation & inspection: normal inspection of the chest Resp Effort & Inspection: normal respiratory effort Auscultation: clear to auscultation bilaterally Cardio Rate: regular rate Rhythm: regular rhythm Heart sounds: S1 normal heart sound present, S2 normal heart sound present, no gallops, no murmurs and no rubs Bruits: no abdominal aortic bruits and no carotid bruits GI Palpation (GI): No Abdominal aortic bruit present, Soft to palpation, nontender, No hepatosplenomegaly present and No Rebound tenderness present Auscultation: normal bowel sounds General: Yes no CVA tenderness Back/Spine/Pelvis Back: no CVA tenderness Cervical Spine: cervical ROM normal and No Cervical spine tenderness Thoracic/Lumbar Spine: thoraco-lumbar ROM normal, No pain with thoraco-lumbar ROM, No thoracic spinal tenderness and No lumbar spinal tenderness Skin Lesions: no lesions Rashes: no rashes Trauma: no lacerations or abrasions Wounds: no wounds Nails: normal Neuro General: patient oriented x3 Cranial nerves: Yes Equal, round and reactive pupils present Cognition (Neuro): normal cognition Gait exam (Neuro): Normal gait present Motor exam (neuro): 5/5 motor strength present throughout Sensory Exam: No Sensory deficit (Neuro) Deep tendon reflexes (DTR's): Right patellar reflex intensity grade: 2+ and Left patellar reflex intensity grade: 2+ Extrem General: Yes normal to inspection and No edema Psych Appearance: grossly normal Affect: normal affect Attitude: cooperative Thought process: Normal thought process present Assessment and Plan Assessment & Plan (1) Adult general medical exam: Code(s): Z00.00 - Encounter for general adult medical examination without abnormal findings Plan: 37-year-old male presents for complete physical exam (2) Panic anxiety syndrome: Code(s): F41.0 - Panic disorder [episodic paroxysmal anxiety] Plan: Ongoing paralyzed anxiety with panic and PTSD symptoms. Significant physical and psychological trauma in his workplace and he has been struggling with this for quite some time now. Still having difficulty when he is in that were placed environment whether he is there as an employee or just a community member. Had given him a letter for short-term disability and this was denied stating that his symptoms were too narrow in scope, however he has disability in numerous aspects of his life. New letter is written supporting ongoing disability. Suggested he may need legal representation. Continue exercise as tolerated. Continue citalopram. Will follow-up in a couple of months (3) Depression with anxiety: Code(s): F41.8 - Other specified anxiety disorders Plan: As above (4) Sun-damaged skin: Code(s): L57.8 - Other skin changes due to chronic exposure to nonionizing radiation Plan: Referred to Dermatology (5) Back pain: Code(s): M54.9 - Dorsalgia, unspecified Plan: Back pain and strain Checking x-rays May need referral to physiatry or Ortho (6) Difficulty sleeping: Code(s): G47.9 - Sleep disorder, unspecified Plan: Likely secondary to anxiety Continue exercise and citalopram Will fall (7) PTSD (post-traumatic stress disorder): Code(s): F43.10 - Post-traumatic stress disorder, unspecified Orders: Orders XR lumbar spine 2-3V Today M54.9 - Dorsalgia, unspecified XR thoracic spine 2V Today M54.9 - Dorsalgia, unspecified Referrals Dermatology Referral L57.8 - Other skin changes due to chronic exposure to nonionizing radiation Coding Level of Care Code Est Pt Level 3 (69024) Est Pt Prev Care 18-39y(26696) Diagnoses Adult general medical exam Z00.00 Panic anxiety syndrome F41.0 Depression with anxiety F41.8 Sun-damaged skin L57.8 Back pain M54.9 Difficulty sleeping G47.9 PTSD (post-traumatic stress disorder) F43.10 Additional Codes SWATHI-7 Assessment Billing - SWATHI-7 Assessment Tool: SWATHI-7 Assessment [id number] ([id number])
[2022-10-27 13:52] VITALS: BP 98/62; PULSE 79; O2SAT 98; BMI 32.6
== END 2022-10-27 15:36 | disposition home or self-care (01) ==
PROVIDERS: PCP Family Medicine; Visit Provider Family Medicine
DX: Z00.00 Encounter for general adult medical examination without abnormal findings (principal); F41.8 Other specified anxiety disorders; F43.10 Post-traumatic stress disorder, unspecified; F41.0 Panic disorder [episodic paroxysmal anxiety]; L57.8 Other skin changes due to chronic exposure to nonionizing radiation; M54.9 Dorsalgia, unspecified; G47.9 Sleep disorder, unspecified
CPT/HCPCS: 99395

== ENCOUNTER 2023-01-06 12:03 | Outpatient (AMB) | payer OTHER, SELFPAY ==
[2023-01-06 13:37] VITALS: BP 122/68; PULSE 78; TEMP 36.6; O2SAT 98; BMI 32.3
--- NOTE | 2023-01-06 13:37 | MHC.OFFWIV ---
Intake Vital Signs 01/06/23 13:37 Height 6 ft 4 in Weight 265 lb BMI 32.3 BP 122/68 Blood Pressure Location Rt brachial Position Sitting Pulse 78 Pulse Source Pulse Oximeter Temp 97.8 F Temp Source Temporal Artery Scan Pulse Oximetry (%) 98 Oxygen Delivery Method Room Air Intake Visit Reasons: EP Congestion/sore throat few weeks [phone] Intake Note: pt is here for c.o congestion and possible sinus infection states throat is red but not sore Patient Tobacco Use Status: Never used Tobacco Allergies No Known Allergies Allergy (Verified 01/06/23 13:38) Do you need a note to return to daycare/school/sports/work: Yes HPI HPI Comments History of Present Illness Details This is a 37-year-old male who presents to the office today for sick visit. Patient complaining of persistent and slightly worsening sinus congestion, sinus pressure, sinus pain, and rhinorrhea x3 weeks. Patient states he has a history of recurrent sinusitis and he usually has 6-10 episodes of sinusitis every year. He reports positive sick contact with his daughters. He denies any significant fevers or chills. He is otherwise feeling well. [facility] Medical History High serum estradiol Surgical History History of surgery Family History Mother No problems noted. Father No problems noted. 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 Cognitive needs: No Hearing needs: No Vision needs: No Review of Systems Const All systems reviewed & are unremarkable except as noted in HPI and below Reports no additional complaints Eyes Reports no additional complaints ENT Reports no additional complaints Card Reports no additional complaints Resp Reports no additional complaints GI Reports no additional complaints Reports no additional complaints Musc Reports no additional complaints Skin/Breast Reports system reviewed and no additional complaints, except as documented Neuro Reports no additional complaints Psych Reports no additional complaints Endo Reports no additional complaints Ori/Lymph Reports no additional complaints Aller/Immun Reports no additional complaints Physical Exam Vital Signs: Last Vital Signs Temp 97.8 F 01/06/23 13:37 Pulse 78 01/06/23 13:37 BP 122/68 01/06/23 13:37 Pulse Ox 98 01/06/23 13:37 Oxygen Delivery Method Room Air 01/06/23 13:37 BMI result Body Mass Index 32.3 Const Other: Vital signs reviewed. Constitutional: Non-toxic appearing. No acute distress. Well-developed and well-nourished. HEENT: Normocephalic and atraumatic. Skin: Warm and dry. No rashes or lesions noted. Neck: Full and painless range of motion. No cervical lymphadenopathy. Cardio: Regular rate. No lower extremity edema. No JVD. Pulmonary: No respiratory distress. No accessory muscle usage. Gastrointestinal: Soft, nontender, and nondistended in all 4 quadrants. Musculoskeletal: Normal range of motion in joints throughout the body. No deformity or other signs of injury. Neuro: Alert and oriented x4. Cranial nerves 2-12 grossly intact. No focal deficits appreciated. Psych: Normal mood and affect. Results AMB Rapid Strep AMB Rapid Strep Negative Last Edit by Ayush Campos CMA on 01/06/23 14:23 Assessment & Plan Assessment & Plan (1) Acute bacterial rhinosinusitis: Code(s): J01.90 - Acute sinusitis, unspecified; B96.89 - Other specified bacterial agents as the cause of diseases classified elsewhere Plan: This is a 37-year-old male presenting to the office complaining of persistent and slightly worsening sinus congestion, sinus pain, sinus pressure, and rhinorrhea x3 weeks. History and physical most consistent with an acute bacterial rhinosinusitis. Patient has been sent home on p.o. amoxicillin clavulanate twice daily times 10 days. Recommended symptomatic management including rest, increased fluids, advil/tylenol for pain/fever, and over the counter throat lozenges/decongestants. I strongly recommended that patient follow his primary care physician for ENT referral due to current sinusitis. Patient advised to follow up here or go to the emergency room for worsening/persistent symptoms. Patient verbalizes understanding and he is in agreement with the plan. Medications: New amoxicillin-pot clavulanate 875-125 mg 1 tab PO BID 20 tabs 0RF Coding Level of Care Code Est Pt Level 3 (33156) Diagnoses Acute bacterial rhinosinusitis J01.90; B96.89
== END 2023-01-06 14:34 | disposition home or self-care (01) ==
PROVIDERS: PCP Family Medicine; Visit Provider Physician Assistant Medical
DX: J01.90 Acute sinusitis, unspecified (principal); B96.89 Other specified bacterial agents as the cause of diseases classified elsewhere; J02.9 Acute pharyngitis, unspecified
CPT/HCPCS: 87880; 99213

== ENCOUNTER 2023-03-30 11:08 | Outpatient (AMB) | payer OTHER, SELFPAY ==
[2023-03-30 11:10] VITALS: BP 120/80; PULSE 84; TEMP 36.5; O2SAT 97; BMI 33.1
--- NOTE | 2023-03-30 11:10 | AM.OFFWIN_ITS ---
Intake Vital Signs 03/30/23 11:10 Height 6 ft 4 in Weight 272 lb BMI 33.1 BP 120/80 Blood Pressure Location Lt brachial Position Sitting Pulse 84 Pulse Source Pulse Oximeter Temp 97.7 F Temp Source Temporal Artery Scan Pulse Oximetry (%) 97 Oxygen Delivery Method Room Air Intake Visit Reasons: EST/bad smelling urine(lobby) Intake Note: pt is here today for bad smelling urine started 2 weeks ago Patient Tobacco Use Status: Never used Tobacco Allergies No Known Allergies Allergy (Verified 03/30/23 11:11) Do you need a note to return to daycare/school/sports/work: No HPI EST/bad smelling urine(lobby) HPI Details This is a 37-year-old male patient who presents today with report of a 2 week history of a foul smelling urine. He denies any frequency, urgency, or burning with urination. Denies any fever or chills. Denies flank pain. Denies any pain, discharge, or rashes of penis. Does report having new sexual partners recently. [facility] Medical History High serum estradiol Surgical History History of surgery Family History Mother No problems noted. Father No problems noted. 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 Cognitive needs: No Hearing needs: No Vision needs: No Review of Systems Const All systems reviewed & are unremarkable except as noted in HPI and below Physical Exam Vital Signs: Last Vital Signs Temp 97.7 F 03/30/23 11:10 Pulse 84 03/30/23 11:10 BP 120/80 03/30/23 11:10 Pulse Ox 97 03/30/23 11:10 Oxygen Delivery Method Room Air 03/30/23 11:10 BMI result Body Mass Index 33.1 Const General: cooperative, healthy appearing, comfortable and no acute distress Resp Effort & Inspection: normal respiratory effort General: Yes no CVA tenderness Back/Spine/Pelvis Back: no CVA tenderness Skin General skin exam: no rashes or lesions noted Extrem General: Yes no clubbing, cyanosis or edema Psych Appearance: grossly normal Mental Status: mental status grossly normal Speech and movement: Normal speech and movement present Assessment & Plan Assessment & Plan (1) Encounter for screening examination for sexually transmitted disease: Code(s): Z11.3 - Encounter for screening for infections with a predominantly sexual mode of transmission Plan: Discussed with patient STI testing, which he agrees to. Urine sent for CT/NG, and Trich. Will notify patients of results once these are available. (2) Abnormal urine odor: Code(s): R82.90 - Unspecified abnormal findings in urine Plan: This does not appear to be a UTI. Normal urine dip. No other urinary symptoms. Will order STI testing. Advised patient to seek f/u care if he does develop any urinary frequency, urgency, dysuria, fever, or chills. He agrees to plan. Orders: Orders Trichomonas vag. RNA Ur Male Today R82.90 - Unspecified abnormal findings in urine, Z11.3 - Encounter for screening for infections with a predominantly sexual mode of transmission CT NG by PCR Today R82.90 - Unspecified abnormal findings in urine, Z11.3 - Encounter for screening for infections with a predominantly sexual mode of transmission Coding Level of Care Code Est Pt Level 3 (04052) Diagnoses Encounter for screening examination for sexually transmitted disease Z11.3 Abnormal urine odor R82.90
== END 2023-03-30 11:42 | disposition home or self-care (01) ==
PROVIDERS: PCP Family Medicine; Visit Provider Nurse Practitioner Family
DX: Z11.3 Encounter for screening for infections with a predominantly sexual mode of transmission (principal); R82.90 Unspecified abnormal findings in urine
CPT/HCPCS: 99213

== ENCOUNTER 2023-03-30 13:58 | Outpatient (REF) | payer OTHER, SELFPAY ==
[2023-03-30 16:51] LABS: CT PCR NOT DETECTED (Not Detect.); NG PCR NOT DETECTED (Not Detect.)
[2023-03-31 23:45] LABS: Trichomonas vag. RNA Ur Male NOT DETECTED (NOT DETECTED)
== END 2023-03-30 13:59 | disposition home or self-care (01) ==
LOC: HO.LNP 13:58
PROVIDERS: Visit Provider Nurse Practitioner Family
DX: R82.90 Unspecified abnormal findings in urine (principal); Z11.3 Encounter for screening for infections with a predominantly sexual mode of transmission
CPT/HCPCS: 0353U; 87661

== ENCOUNTER 2024-02-16 10:43 | Outpatient (AMB) | payer OTHER, SELFPAY ==
--- NOTE | 2024-02-16 10:57 | A.OFFPC_ITS ---
Vital Signs 02/16/24 10:59 Height 6 ft 4 in Weight 281 lb 8 oz BMI 34.3 BP 110/60 Blood Pressure Location Rt brachial Position Sitting Respiration 14 Pulse 81 Pulse Source Pulse Oximeter Temp 98.4 F Temp Source Oral Pulse Oximetry (%) 97 Oxygen Delivery Method Room Air Intake Visit Reasons: follow up/ letter for work Intake Note: f/u appt for anxiety and needs a return to work clearance Allergies No Known Allergies Allergy (Verified 02/16/24 10:58) Medication List - Last Reconciled 02/16/24 by Cezar Santiago MD citalopram 20 mg PO DAILY 90 days loratadine (Claritin) 10 mg PO DAILY Tobacco use date assessed: 10/27/22 Dental Screening Dental Screen Date: 10/27/22 HPI follow up/ letter for work HPI Details Pt reports to f/u depression with anxiety, PTSD. Needs a return to work clearance. Reports ongoing significant anxiety. Has been having difficulty sleeping. [facility] Medical History High serum estradiol Surgical History History of surgery Family History Mother No problems noted. Father No problems noted. 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 1. Little interest or pleasure in doing things: several days 2. Feeling down, depressed, or hopeless: several days 3. Trouble falling or staying asleep, or sleeping too much: nearly every day 4. Feeling tired or having little energy: more than half the days 5. Poor appetite or overeating: several days 6. Feeling bad about yourself - or that you are a failure or have let yourself or your family down: several days 7. Trouble concentrating on things, such as reading the newspaper or watching television: more than half the days 8. Moving or speaking so slowly that other people could have noticed. Or the opposite - being so fidgety or restless that you have been moving around a lot more than usual: several days 9. Thoughts that you would be better off or of hurting yourself in some way: not at all Total score: 12 Depression Screening Interpretation: Positive Depression Screening Done: Yes 46096 - PHQ-9 Billing: Patient declined-do not bill Source: Developed by Drs. Natanael Horta, Deandra Diaz, Frank Willis and colleagues, with an educational austin from [employer]. Thrive Questionnaire Date Thrive assessed: 02/15/24 I am a: Patient What is your living situation today?: I have a steady place to live Within the past 12 months, did the food you bought not last and you didn't have the money to get more?: Never true Within the past 12 months, did you worry whether your food would run out before you got money to buy more?: Never true Do you have trouble paying for medicines?: No Do you have trouble getting transportation to medical appointments?: No Do you have trouble paying your heating and electricity bill?: No Do you have trouble taking care of your child, family member or friend?: No Do you have trouble with day-to-day activities such as bathing, preparing meals, shopping, managing finances, etc.?: No Are you currently unemployed and looking for a job?: No Are you interested in more education?: No Please select the resources that you would like help with: None Currently or been in a relationship where the following occur: No concerns reported THRIVE Score: 0 AUDIT C Alcohol Use Questionnaire (AUDIT-C) 1. How often do you have a drink containing alcohol?: 2-4 times a month 2. How many drinks containing alcohol do you have on a typical day when you are drinking?: 5 or 6 3. How often do you have six or more drinks on one occasion?: Less than monthly Total Score: 5 SWATHI-7 AMB Questionnaire SWATHI-7 Date SWATHI - 7 assessed: 02/16/24 Feeling nervous, anxious, or on edge: 1 = Several days Not being able to stop or control worryin = Several days Worrying too much about different things: 1 = Several days Trouble relaxin = Several days Being so restless that it is hard to sit still: 3 = Nearly every day Becoming easily annoyed or irritable: 2 = More than half the days Feeling afraid as if something awful might happen: 1 = Several days Total SWATHI-7 score (0-4 normal; 5-9 mild; 10-14 moderate; 15-21 severe): 10 Source: Developed by Drs. Natanael Horta, Deandra Diaz, Frank Willis and colleagues, with an educational austin from [employer]. Review of Systems Const Denies chills, Denies fatigue, Denies fever(s), Denies headache(s) and Denies weakness ENT Denies dizziness and Denies headache(s) Card Denies dyspnea Resp Denies cough, Denies dyspnea, Denies wheezing and Denies other (shortness of breath) Musc Denies numbness and Denies tingling Neuro Denies dizziness, Denies headache(s), Denies numbness, Denies tingling and Denies weakness Psych Reports anxiety and Reports depression Endo Denies fatigue Aller/Immun Denies wheezing Physical exam (Primary Care) Vital Signs: Last Vital Signs Temp 98.4 F 02/16/24 10:59 Pulse 81 02/16/24 10:59 Resp 14 02/16/24 10:59 BP 110/60 02/16/24 10:59 Pulse Ox 97 02/16/24 10:59 Oxygen Delivery Method Room Air 02/16/24 10:59 BMI result Body Mass Index 34.3 Tobacco/Smoking Status: Tobacco use Status Tobacco use date assessed 10/27/22 02/16/24 11:02 Patient Tobacco Use Status Never used Tobacco 02/16/24 11:02 e-Cigarette/Vaping Use Never Used 02/16/24 11:02 PHQ-9: PHQ-9 Score PHQ-9: Total score 02/16/24 11:02 Depression Screening Interpretation: Positive Thrive Assessment: Date of Thrive Assessment Date Thrive assessed 02/15/24 02/16/24 11:02 Currently or been in a relationship where the following occur: No concerns reported Const General: well developed; No acute distress Nutritional Appearance: well nourished Orientation/consciousness: patient oriented x3 [facility] Head: Yes normocephalic and Yes atraumatic Eyes General: appearance normal, both eyes and all related structures Pupils: Equal, round and reactive pupils present EOM: EOMs intact bilaterally Resp Effort & Inspection: normal respiratory effort Neuro General: patient oriented x3 and gait normal Cranial nerves: Yes Equal, round and reactive pupils present Psych Affect: normal affect Coding Level of Care Code Est Pt Level 3 (45330) Diagnoses Depression with anxiety F41.8 PTSD (post-traumatic stress disorder) F43.10 Assessment & Plan Assessment & Plan (1) Depression with anxiety: Code(s): F41.8 - Other specified anxiety disorders Category: Medical Plan: Patient?returns?to?follow- up?depression?and?anxiety?with?PTSD?and?discuss?his?readiness?to?return?to?some? form?work. He?continues?citalopram?20?mg?daily?and?is?follow ed?by?therapist?in?his?psych?med?provider. We?discussed?his?medication?and?recommended?he?consider?increasing?his?medicatio n.??He?can?discuss?this?with?provider. We?discussed?adjuvant?treatments?such?as?electroshock?therapy MRI. At?this?point?I?feel?he?is?ready?to?try?working?at?[employer]?again?in?some?controll ed?her?limited?fashion. I?will?give?a?letter?recommending?he?be?offered?a?physician?at?[facility] es?him?greatest?amount?control?on?his?environment?such?as a?remote?physician.??If?no?physician?like?this?is?available?I?recommending?start ?with?1?day?per?week.??We?will?follow-up?in?about?3?months?to? determine?if?he?is?able?to?expand?this?with?a?goal?of?hopefully?returning?to?ful l-time?at?some?point. (2) PTSD (post-traumatic stress disorder): Code(s): F43.10 - Post-traumatic stress disorder, unspecified Category: Medical Plan: As?above Orders: Orders Comprehensive [place]. Panel Fast Today Z00.00 - Encounter for general adult medical examination without abnormal findings Microalbumin, Random (w Creat) Today I10 - Essential (primary) hypertension UA and rflx microscopic Today Z00.00 - Encounter for general adult medical examination without abnormal findings Complete Blood Count Auto Diff Today Z00.00 - Encounter for general adult medical examination without abnormal findings Lipid Panel Today Z00.00 - Encounter for general adult medical examination without abnormal findings TSH reflex Free T4 Today Z00.00 - Encounter for general adult medical examination without abnormal findings
[2024-02-16 10:59] VITALS: BP 110/60; PULSE 81; RESP 14; TEMP 36.9; O2SAT 97; BMI 34.3
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
--- OUTSIDE RECORDS SUMMARY | 2024-02-16 11:05 | XMS_ITS ---
Author Name [facility] [place] Organization [facility] [place] Address [address] [place] [id number] Care Team Providers Care Skating Rink Manager Name Role Phone MADISON WRIGHT Primary Care [...] section includes the information on record at [place] for the Encounter. Date/Time Encounter Type Encounter Description Reason Pro vider Source Dec 19, 2023 12:00 AM Outpatient Encounter COMMUNITY CARE CONSULT IHE Encounter Template Text not used by [place] Plan of Treatment: Future Appointments (+ 6 months) and Future Tests (+/- 45 days) The Plan of Treatment section includes future care activities for the patient from all [place] treatmentfacilities. This section includes future appointments and future orders which are active, pending or scheduled. Future Appointments This section includes appointments that were scheduled to occur 6 months from the date of the Encounter, up to a maximum of 20 appointments. The data comes from all [place] treatment facilities. Appointment Date/Time Appointment Type Appointme nt Facility Name Feb 26, 2024 03:00 [facility] Apr 05, 2024 09:00 AM [place]IC[place] [facility] [place] [place] [facility] Apr 19, 2024 09:00 AM AMBULATORY - PSYCHIATRY [facility] Apr 19, 2024 09:00 AM AMBULATORY - PSYCH[facility]ATRY [facility] Encounter Notes: All associated encounter notes This section contains the clinical notes associated to the Encounter. Date/Time Encounter Note(s) Provider Source Dec 19, 2023 12:00 AM NONVA CONSULT: LOCAL TITLE: COMMUNITY CARE-CONSULT RESULT NOTE STANDARD TITLE: NONVA CONSULT DATE OF NOTE: DEC 19, 2023 ENTRY DATE: JAN 11, 2024@14:47:37 AUTHOR: MICHAELLE DONALDSON EXP COSIGNER: URGENCY: STATUS: COMPLETED VistA Imaging - Scanned Document SCANNED DOCUMENT SIGNATURE NOT REQUIRED Electronically Filed: 01/11/2024 by: MICHAELLE DONALDSON [employer]ER MICHAELLE DNOALDSON [facility]
--- OUTSIDE RECORDS SUMMARY | 2024-02-16 11:05 | XMS_ITS | Continuity of Care Document ---
Author Name [facility] Organization [facility] Care Team Providers Care Coach Driver Name Role Phone [facility] Unavailable Unavailable Problems Combined list of problems from Department of Defense and Veterans Affairs facilities. It does not include entries that were removed or entered in error. Problem Status Onset Date Problem Type Date of Resolution Comments Source Unspecified contact dermatitis, unspecified cause Inactive 12/09/19 Condition DoD ASSESSMENT, POST DEPLOYMENT, DOCUMENTED ON EI2110 (PDHRA) Inactive 12/09/19 Condition DoD Low back pain Inactive 10/17/19 Condition DoD Pain in left knee Inactive 10/09/19 Condition DoD Encounter for other administrative examinations Active 09/13/[address] [facility] Preventive Medicine New Patient Evaluation Adult 18-39 Years Inactive 03/25/[address] [facility] visit for: administrative purpose Inactive 02/27/20 13 Condition DoD Chronic low back pain Active Condition [facility] COVID-19 Active Condition Aug 16 Entered By: MADISON WRIGHT Comment: 2019. Not hospitalized [facility] Erectile dysfunction Active Condition [facility] Exposure to potentially hazardous substance Active Condition [facility] FHx Active Condition Aug 16 Entered By: MADISON WRIGHT Comment: Father: age 65. DM, CAD, EtOH, illicit substance abuseJun 2023 Entered By: MADISON WRIGHT Comment: Mother: Alive age 65. Multiple sclerosisJun 2023 Entered By: MADISON WRIGHT Comment: Paternal grandfather: DM [facility] Gynaecomastia Active Condition Jul Entered By: MADISON WRIGHT Comment: Unknown etiology. S/p surgical repair. [facility] Major depressive disorder Active Condition [facility] Under care of multiple providers Active Condition Aug 17, 2023 Entered By: MADISON WRIGHT Comment: Community PCP: Dr. 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 Medication Details Route Status Patient Instructions Prescription Expires Prescription Number Last Dispense Date Ordering Provider Order Date Order Qty Source CITALOPRAM (U/D) 40 MG ORAL TAB TAKE ONE-HALF TABLET BY MOUTH ONCE DAILY FOR DEPRESSI ON AND ANXIETY Active 08/17/2024 [id number] MADISON WRIGHT 2023 45 [facility] CITALOPRAM HBR (CITALOPRAM HYDROBROMID E), 20MG, TABLET, ORAL, TORRENT PHARMAC, 100 ea. BOTTLE Active [id number] 4 2023 90 Pharmac y Data Transac t[facility] Service Facilit y CITALOPRAM HBR (CITALOPRAM HYDROBROMID E), 20MG, TABLET, ORAL, TORRENT PHARMAC, 100 ea. BOTTLE Active [id number] 2023 90 Pharmac y Data Transac tion Service Facilit y CITALOPRAM HBR (CITALOPRAM HYDROBROMID E), 20MG, TABLET, ORAL, TORRENT PHARMAC, 100 ea. BOTTLE Active [id number] 2023 90 Pharmac y Data Transac tion Service Facilit y CITALOPRAM HYDROBROMID E 40MG TAB TAKE ONE-HALF TABLET BY MOUTH ONCE DAILY FOR DEPRESSI ON AND ANXIETY ORAL ACTIVE 10/19/2024 [id number] Wyatt WRIGHT A 2023 45 [place] CITALOPRAM HYDROBROMID E 40MG TAB TAKE ONE-HALF TABLET BY MOUTH ONCE DAILY FOR DEPRESSI ON AND ANXIETY ORAL DISCONT INUED 08/17/2024 [id number] Wyatt WRIGHT A 2023 45 [place] CYCLOBENZAP RINE (U/D) 10 MG ORAL TAB TAKE ONE TABLET BY MOUTH THREE TIMES DAILY NEEDED FOR MUSCLE SPASM 09/16/2023 [id number] MADISON WRIGHT 2023 30 [facility] CYCLOBENZAP RINE HCL 10MG TAB TAKE ONE TABLET BY MOUTH THREE TIMES DAILY NEEDED FOR MUSCLE SPASM ORAL 09/16/2023 [id number] Wyatt WRIGHT A 2023 30 [place] sildenafiL 50 MG ORAL TAB TAKE ONE TABLET BY MOUTH NEEDED FOR ERECTILE DYSFUNCT ION TAKE 1 HOUR PRIOR TO SEXUAL ACTIVITY 11/15/2023 [id number] MADISON WRIGHT 2023 18 [facility] SILDENAFIL CITRATE 100MG TAB TAKE ONE TABLET BY MOUTH NEEDED FOR ERECTILE DYSFUNCT ION TAKE 1 HOUR PRIOR TO SEXUAL ACTIVITY ORAL DISCONT INUED 10/19/2024 [id number] 4 Wyatt WRIGHT A 2023 18 [place] SILDENAFIL CITRATE 50MG TAB TAKE ONE TABLET BY MOUTH NEEDED FOR ERECTILE DYSFUNCT ION TAKE 1 HOUR PRIOR TO SEXUAL ACTIVITY ORAL DISCONT INUED (EDIT) 11/15/2023 [id number] 4 Wyatt WRIGHT A 2023 18 [facility] [place] TADALAFIL 20MG TAB TAKE ONE TABLET BY MOUTH NEEDED ORAL ACTIVE 12/19/2024 [id number] SHELLY COOPER 2023 18 [facility] [place] Allergies, Adverse Reactions, Alerts Combined list of allergies from Department of Defense and Veterans Affairs facilities. It does not include entries that were removed or entered in error. Substance Category Reaction Severity Reaction type Status Date Reported Comments Source No Known Allergies Drug allergy (disorder) active 02/26/2013 [facility] [place] [address] Immunizations Combined list of available immunizations from the Department of Defense and Veterans Affairs facilities. Immunization Series Date Given Administered By Site Reaction Lot Number CVX Code Drug Lip And Gate Builder Status Comments Source influenza virus vaccine, unspecified 2023 MORENA MICHELLE Shoul aries, left (delt oid) [id number] Seqirus complet ed influenza virus vaccine, unspecifi ed 12/03/23 Recorded Ambulat ory Pharmac y TDAP 2023 ANJEL STALLINGS R RIGHT DELTO ID [id number] complet ed [facility] influenza, injectable, quadrivalent- pf 2021 [id number] GlaxoSmithKli ne complet ed influenza , injectabl e, quadrival ent-pf 12/12/21 Given Ambulat ory Pharmac y COVID Vaccine Moderna 2020 [id number] complet ed COVID Vaccine Moderna 02/26/21 Given Ambulat ory Pharmac y influenza virus vaccine, inactivated 2020 [id number] Seqirus complet ed influenza virus vaccine, inactivat ed 01/02/21 Given Ambulat ory Pharmac y COVID Vaccine Moderna 2020 [id number] complet ed COVID Vaccine Moderna 03/22/20 Given Ambulat ory Pharmac y influenza, injectable, quadrivalent- pf 2019 [id number] GlaxoSmithKli ne complet ed influenza , injectabl e, quadrival ent-pf 02/14/20 Given Ambulat ory Pharmac y anthrax vaccine 2019 [id number] Emergent Biosolutions complet ed anthrax vaccine 09/27/19 Given Ambulat ory Pharmac y typhoid Vi capsular polysaccharid e vac 2019 [id number] sanofi pasteur complet ed typhoid Vi capsular polysacch aride vac 04/25/19 Given Ambulat ory Pharmac y anthrax vaccine 2019 [id number] Emer[employer] complet ed anthrax vaccine 04/25/19 Given Ambulat ory Pharmac y influenza, injectable, quadrivalent- pf 2017 [id number] Seqirus complet ed influenza , injectabl e, quadrival ent-pf 12/31/17 Given Ambulat ory Pharmac y influenza virus vaccine, inactivated 2016 [id number] Seqirus complet ed influenza virus vaccine, inactivat ed 11/19/16 Given Ambulat ory Pharmac y influenza, seasonal, injectable-pf 2015 [id number] CSL Behring complet ed influenza , seasonal, injectabl e-pf 01/03/16 Given Ambulat ory Pharmac y influenza, seasonal, injectable-pf 2014 [id number] CSL Behring complet ed influenza , seasonal, injectabl e-pf 12/04/14 Given Ambulat ory Pharmac y hepatitis A adult vaccine 2013 [id number] GlaxoSmithKli ne complet ed hepatitis A adult vaccine 09/06/13 Given Ambulat ory Pharmac y hepatitis A adult vaccine 2012 [id number] GlaxoSmithKli ne complet ed hepatitis A adult vaccine 02/21/13 Given Ambulat ory Pharmac y poliovirus vaccine, inactivated 2012 [id number] sanofi pasteur complet ed polioviru s vaccine, inactivat ed 02/15/13 Given Ambulat ory Pharmac y tetanus, diphtheria, acellular pertu is 2012 [id number] 115 GlaxoSmithKli ne complet ed tetanus, diphtheri a, acellular pertussis 02/15/13 Given Ambulat ory Pharmac y meningococcal A,C,Y,W-135 (MCV4P) 2012 [id number] sanofi pasteur complet ed meningoco ccal A,C,Y,W-1 35 (MCV4P) 02/15/13 Given Ambulat ory Pharmac y influenza, seasonal, injectable-pf 2012 [id number] 140 Novartis Pharmaceutica ls complet ed influenza , seasonal, injectabl e-pf 02/15/13 Given Ambulat ory Pharmac y adenovirus vaccine, live 2012 [id number] 143 Teva Pharmaceutica ls complet ed adenoviru s vaccine, live 02/15/13 Given Ambulat ory Pharmac y Results Combined list of recent chemistry, hematology and other laboratory results from Department of Defense and Veterans Affairs, ranging from 15 months to all on record, depending upon the facility. Order Name Results Value Reference Range Date Interpretation Specimen Comments Source HEPATITI S B SURFACE ANTIGEN (HBsAg)- HEPATITIS B VIRUS SURFACE AG [PRESENCE] IN SERUM OR PLASMA BY IMMUNOASSA Y Non Reactive 08/16 Specimen Type: SERUM Comment: A 'Reactive' result indicates HBsAb results >/= 12.0 mIU/mL and immunity to HBV infection. A Reactive result ( Positive prior to 12/10/12) is diagnostic of acute or chronic hepatitis B infection. The presence of Hepatitis B surface antigen is frequently associated with infectivity . Ordering Provider: ALISSON WRIGHT A Report Released Date/Time: Aug 17, 2023 10:07 AM Reporting Lab: [address] [address] Performing Lab: [address] [address] [place] HEPATITI S B SURFACE ANTIBODY (HBsAb)- HEPATITIS B VIRUS SURFACE AB [PRESENCE] IN SERUM BY IMMUNOASSA Y REACTIVE 08/16 Specimen Type: SERUM Comment: Hemolysis present analysis cannot be performed. Hemolysis present may falsly elevate Potassium Total and Direct Bili, Iron, AST, %Fe. Ordering Provider: ALISSON WRIGHT A Report Released Date/Time: Aug 17, 2023 10:07 AM Reporting Lab: [address] [address] Performing Lab: [facility] [address] [facility] [address] [place] TESTOSTE TERRI, TOTAL (WHV) TESTOSTERO NE [MASS/VOLU ME] IN SERUM OR PLASMA 412.10 ng/dL 220.00 - 892.00 08/16 Specimen Type: SERUM No comment entered. Ordering Provider: ALISSON WRIGHT A Report Released Date/Time: Aug 17, 2023 10:07 AM Reporting Lab: [address] [address] Performing Lab: [facility] [address] [facility] [address] [place] CALCIUM CALCIUM [MASS/VOLU ME] IN SERUM OR PLASMA 8.8 mg/dL 8.5 - 10.2 08/16 Specimen Type: SERUM Comment: Hemolysis present analysis cannot be performed. Hemolysis present may falsly elevate Potassium Total and Direct Bili, Iron, AST, %Fe. Ordering Provider: ALISSON WRIGHT A Report Released Date/Time: Aug 17, 2023 10:07 AM Reporting Lab: [facility] [address] [address] Performing Lab: [facility] [address] [address] [place] MAGNESIU M MAGNESIUM [MASS/VOLU ME] IN SERUM OR PLASMA 2.0 mg/dL 1.6 - 2.6 08/16 Specimen Type: SERUM Comment: Hemolysis present analysis cannot be performed. Hemolysis present may falsly elevate Potassium Total and Direct Bili, Iron, AST, %Fe. Ordering Provider: ALISSON WRIGHT A Report Released Date/Time: Aug 17, 2023 10:07 AM Reporting [facility] [address] [address] Performing Lab: [facility] [address] [address] [place] HEMOGLOB IN A1C PANEL HEMOGLOBIN A1C/HEMOGL OBIN.TOTAL IN BLOOD BY HPLC 5.0 4.0 - 5.6 08/16 Specimen Type: BLOOD Comment: Values obtained from A1C measurement s can vary. For atypical A1C assays, a reported value of 7.0 could actually be between 6.72 and 7.28 if measured by a reference method. A reported value of 9.0 could actually be between 8.73 and 9.27. Ref: http://www. ngsp.org/[place] Pdata.asp Ordering Provider: ALISSON WRIGHT A Report Released Date/Time: Aug 17, 2023 10:07 AM Reporting Lab: [facility] [address] [address] Performing Lab: [facility] [address] [address] [place] TSH THYROTROPI N [UNITS/VOL UME] IN SERUM OR PLASMA 2.19 u[IU]/mL 0.35 - 5.00 08/16 Specimen Type: SERUM Comment: Hemolysis present analysis cannot be performed. Hemolysis present may falsly elevate Potassium Total and Direct Bili, Iron, AST, %Fe. Ordering Provider: ALISSON WRIGHT A Report Released Date/Time: Aug 17, 2023 10:07 AM Reporting Lab: [facility] [place] [address] [address] Performing Lab: [facility] [address] [address] [place] CBC AND DIFF (AUTO) LEUKOCYTES [#/VOLUME] IN BLOOD BY AUTOMATED COUNT 6.79 10*3/uL 4.50 - 11.00 08/16 Specimen Type: BLOOD No comment entered. Ordering Provider: ALISSON WRIGHT A Report Released Date/Time: Aug 17, 2023 10:07 AM Reporting Lab: [facility] [place] [facility] [address] [address] Performing Lab: [facility] [place] [address] [address] [place] CBC AND DIFF (AUTO) ERYTHROCYT ES [#/VOLUME] IN BLOOD BY AUTOMATED COUNT 5.04 10*6/uL 4.23 - 5.66 08/16 Specimen Type: BLOOD No comment entered. Ordering Provider: ALISSON WRIGHT A Report Released Date/Time: Aug 17, 2023 10:07 AM Reporting Lab: [facility] [place] [address] [address] Performing Lab: [facility] [place] [address] [address] [place] CBC AND DIFF (AUTO) HEMOGLOBIN [MASS/VOLU ME] IN BLOOD 15.4 g/dL 12.8 - 17 08/16 Specimen Type: BLOOD No comment entered. Ordering Provider: ALISSON WRIGHT A Report Released Date/Time: Aug 17, 2023 10:07 AM Reporting Lab: [facility] [place] [address] [place] [address] Performing Lab: [facility] [address] [address] [place] CBC AND DIFF (AUTO) HEMATOCRIT [VOLUME FRACTION] OF BLOOD BY AUTOMATED COUNT 45.1 39.2 - 50.4 08/16 Specimen Type: BLOOD No comment entered. Ordering Provider: ALISSON WRIGHT A Report Released Date/Time: Aug 17, 2023 10:07 AM Reporting Lab: [facility] [place] [facility] [address] [address] Performing [facility]: [facility] [address] [address] [place] CBC AND DIFF (AUTO) MCV [ENTITIC VOLUME] BY AUTOMATED COUNT 89.5 fL 82 - 99 08/16 Specimen Type: BLOOD No comment entered. Ordering Provider: ALISSON WRIGHT A Report Released Date/Time: Aug 17, 2023 10:07 AM Reporting Lab: [facility] [address] [address] Performing Lab: [facility] [address] [place] CBC AND DIFF (AUTO) MCHC [MASS/VOLU ME] BY AUTOMATED COUNT 34.1 g/dL 30.8 - 35.1 08/16 Specimen Type: BLOOD No comment entered. Ordering Provider: ALISSON WRIGHT A Report Released Date/Time: Aug 17, 2023 10:07 AM Reporting Lab: [facility] [place] [address] [address] Performing Lab: [facility] [address] [place] CBC AND DIFF (AUTO) PLATELETS [#/VOLUME] IN BLOOD BY AUTOMATED COUNT 304 10*3/uL 140 - 360 08/16 Specimen Type: BLOOD No comment entered. Ordering Provider: ALISSON WRIGHT A Report Released Date/Time: Aug 17, 2023 10:07 AM Reporting Lab: [facility] [address] [address] Performing Lab: [facility] [address] [address] [place] CBC AND DIFF (AUTO) ERYTHROCYT E DISTRIBUTI ON WIDTH [RATIO] BY AUTOMATED COUNT 13.5 12.0 - 16.0 08/16 Specimen Type: BLOOD No comment entered. Ordering Provider: ALISSON WRIGHT A Report Released Date/Time: Aug 17, 2023 10:07 AM Reporting Lab: [facility] [place] [facility] [address] [address] Performing Lab: [facility] [address] [address] [place] CBC AND DIFF (AUTO) MONOCYTES [#/VOLUME] IN BLOOD BY AUTOMATED COUNT 0.56 10*3/uL 0.30 - 1.10 08/16 Specimen Type: BLOOD No comment entered. Ordering Provider: ALISSON WRIGHT A Report Released Date/Time: Aug 17, 2023 10:07 AM Reporting Lab: [facility] [place] [address] [address] Performing Lab: [facility] [place] [address] [address] [place] CBC AND DIFF (AUTO) MCH [ENTITIC MASS] BY AUTOMATED COUNT 30.6 pg 26.2 - 32.6 08/16 Specimen Type: BLOOD No comment entered. Ordering Provider: ALISSON WRIGHT A Report Released Date/Time: Aug 17, 2023 10:07 AM Reporting Lab: [facility] [place] [address] [address] Performing Lab: [facility] [address] [address] [place] CBC AND DIFF (AUTO) NEUTROPHIL S/100 LEUKOCYTES IN BLOOD BY AUTOMATED COUNT 51.9 43.7 - 75.8 08/16 Specimen Type: BLOOD No comment entered. Ordering Provider: ALISSON WRIGHT A Report Released Date/Time: Aug 17, 2023 10:07 AM Reporting Lab: [facility] [address] [address] Performing Lab: [facility] [place] [facility] [address] [address] [place] CBC AND DIFF (AUTO) LYMPHOCYTE S/100 LEUKOCYTES IN BLOOD BY AUTOMATED COUNT 33.9 14.0 - 42.3 08/16 Specimen Type: BLOOD No comment entered. Ordering Provider: ALISSON WRIGHT A Report Released Date/Time: Aug 17, 2023 10:07 AM Reporting Lab: [facility] [place] [address] [address] Performing Lab: [facility] [place] [address] [address] [place] CBC AND DIFF (AUTO) MONOCYTES/ 100 LEUKOCYTES IN BLOOD BY AUTOMATED COUNT 8.2 5.1 - 13.7 08/16 Specimen Type: BLOOD No comment entered. Ordering Provider: ALISSON WRIGHT A Report Released Date/Time: Aug 17, 2023 10:07 AM Reporting Lab: [facility] [place] [address] [address] Performing Lab: [facility] [place] [address] [address] [place] CBC AND DIFF (AUTO) EOSINOPHIL S/100 LEUKOCYTES IN BLOOD BY AUTOMATED COUNT 4.6 0.4 - 6.8 08/16 Specimen Type: BLOOD No comment entered. Ordering Provider: ALISSON WRIGHT A Report Released Date/Time: Aug 17, 2023 10:07 AM Reporting Lab: [facility] [place] [address] [address] Performing Lab: [facility] [place] [address] [address] [place] CBC AND DIFF (AUTO) BASOPHILS/ 100 LEUKOCYTES IN BLOOD BY AUTOMATED COUNT 0.7 0.1 - 2.0 08/16 Specimen Type: BLOOD No comment entered. Ordering Provider: ALISSON WRIGHT A Report Released Date/Time: Aug 17, 2023 10:07 AM Reporting Lab: [facility] [place] [address] [address] Performing Lab: [facility] [address] [address] [place] CBC AND DIFF (AUTO) NEUTROPHIL S [#/VOLUME] IN BLOOD BY AUTOMATED COUNT 3.52 10*3/uL 2.20 - 7.60 08/16 Specimen Type: BLOOD No comment entered. Ordering Provider: ALISSON WRIGHT A Report Released Date/Time: Aug 17, 2023 10:07 AM Reporting Lab: [facility] [address] [address] Performing Lab: [facility] [address] [address] [place] CBC AND DIFF (AUTO) LYMPHOCYTE S [#/VOLUME] IN BLOOD BY AUTOMATED COUNT 2.30 10*3/uL 1.00 - 3.20 08/16 Specimen Type: BLOOD No comment entered. Ordering Provider: ALISSON WRIGHT A Report Released Date/Time: Aug 17, 2023 10:07 AM Reporting Lab: [facility] [place] [address] [address] Performing Lab: [facility] [address] [address] [place] CBC AND DIFF (AUTO) EOSINOPHIL S [#/VOLUME] IN BLOOD BY AUTOMATED COUNT 0.31 10*3/uL 0.03 - 0.44 08/16 Specimen Type: BLOOD No comment entered. Ordering Provider: ALISSON WRIGHT A Report Released Date/Time: Aug 17, 2023 10:07 AM Reporting Lab: [facility] [place] [address] [address] Performing Lab: [facility] [address] [address] [place] CBC AND DIFF (AUTO) BASOPHILS [#/VOLUME] IN BLOOD BY AUTOMATED COUNT 0.05 10*3/uL 0.01 - 0.13 08/16 Specimen Type: BLOOD No comment entered. Ordering Provider: ALISSON WRIGHT A Report Released Date/Time: Aug 17, 2023 10:07 AM Reporting Lab: [facility] [address] [address] Performing Lab: [facility] [address] [address] [place] CBC AND DIFF (AUTO) IMMATURE GRANULOCYT ES/100 LEUKOCYTES IN BLOOD BY AUTOMATED COUNT 0.7 0.0 - 0.7 08/16 Specimen Type: BLOOD No comment entered. Ordering Provider: ALISSON WRIGHT A Report Released Date/Time: Aug 17, 2023 10:07 AM Reporting Lab: [facility] [address] [address] Performing Lab: [address] [address] [place] CBC AND DIFF (AUTO) IMMATURE GRANULOCYT ES [#/VOLUME] IN BLOOD 0.05 10*3/uL 0.00 - 0.06 08/16 Specimen Type: BLOOD No comment entered. Ordering Provider: ALISSON WRIGHT A Report Released Date/Time: Aug 17, 2023 10:07 AM Reporting Lab[facility] [address] [address] [facility] [address] [address] [place] CBC AND DIFF (AUTO) NRBC % 0.0 0.0 - 0.0 08/16 Specimen Type: BLOOD No comment entered. Ordering Provider: ALISSON WRIGHT A Report Released Date/Time: Aug 17, 2023 10:07 AM Reporting Lab: [facility] [address] [address] Performing Lab[facility] [address] [address] [place] CBC AND DIFF (AUTO) NRBC, ABS 0.00 10*3/uL 0.00 - 0.00 08/16 Specimen Type: BLOOD No comment entered. Ordering Provider: ALISSON WRIGHT A Report Released Date/Time: Aug 17, 2023 10:07 AM Reporting Lab: [facility] [address] [address] Performing Lab: [facility] [address] [address] [place] MICROALB UMIN CREATINI NE RATIO PANEL MICROALBUM IN/CREATIN INE [MASS RATIO] IN URINE 3.7 mg/g 0 - 29.9 08/16 Specimen Type: URINE No comment entered. Ordering Provider: ALISSON WRIGHT A Report Released Date/Time: Aug 17, 2023 10:07 AM Reporting Lab: [facility] [address] [address] Performing Lab: [facility] [address] [address] [place] MICROALB UMIN CREATINI NE RATIO PANEL MICROALBUM IN [MASS/VOLU ME] IN URINE 1.0 mg/dL 08/16 Specimen Type: URINE No comment entered. Ordering Provider: ALISSON WRIGHT A Report Released Date/Time: Aug 17, 2023 10:07 AM Reporting Lab: [facility] [address] [address] Performing Lab: [facility] [address] [address] [place] MICROALB UMIN CREATINI NE RATIO PANEL CREATININE [MASS/VOLU ME] IN URINE 267.12 mg/dL 08/16 Specimen Type: URINE No comment entered. Ordering Provider: ALISSON WRIGHT A Report Released Date/Time: Aug 17, 2023 10:07 AM Reporting Lab: [facility] [address] [address] [facility]forming Lab: [facility] [address] [address] [place] URINALYS IS COLOR OF URINE Yellow 08/16 Specimen Type: URINE Comment: If Glucose = >500 and Ketones are positive, please alert the Physician. Ordering Provider: ALISSON WRIGHT A Report Released Date/Time: Aug 17, 2023 10:07 AM Reporting Lab: [facility] [address] [address] Performing Lab: [facility] [address] [place] URINALYS IS APPEARANCE OF URINE Clear 08/16 Specimen Type: URINE Comment: If Glucose = >500 and Ketones are positive, please alert the Physician. Ordering Provider: ALISSON WRIGHT A Report Released Date/Time: Aug 17, 2023 10:07 AM Reporting Lab: [facility] [address] Performing Lab: [facility] [address] [place] URINALYS IS GLUCOSE [MASS/VOLU ME] IN URINE NEGATIVE mg/dL 08/16 Specimen Type: URINE Comment: If Glucose = >500 and Ketones are positive, please alert the Physician. Ordering Provider: ALISSON WRIGHT A Report Released Date/Time: Aug 17, 2023 10:07 AM Reporting Lab: [facility] [address] [address] Performing Lab: [facility] [address] [place] URINALYS IS KETONES [MASS/VOLU ME] IN URINE BY TEST STRIP NEGATIVE mg/dL 08/16 Specimen Type: URINE Comment: If Glucose = >500 and Ketones are positive, please alert the Physician. Ordering Provider: ALISSON WRIGHT A Report Released Date/Time: Aug 17, 2023 10:07 AM Reporting Lab: [facility] [address] [address] Performing Lab: [facility] [address] [place] URINALYS IS ERYTHROCYT ES [PRESENCE] IN URINE SEDIMENT BY LIGHT MICROSCOPY NEGATIVE mg/dL 08/16 Specimen Type: URINE Comment: If Glucose = >500 and Ketones are positive, please alert the Physician. Ordering Provider: ALISSON WRIGHT A Report Released Date/Time: Aug 17, 2023 10:07 AM Reporting Lab: [facility] [address] [address] Performing Lab: [facility] [address] [address] [place] URINALYS IS PROTEIN [MASS/VOLU ME] IN URINE BY TEST STRIP NEGATIVE mg/dL 08/16 Specimen Type: URINE Comment: If Glucose = >500 and Ketones are positive, please alert the Physician. Ordering Provider: ALISSON WRIGHT A Report Released Date/Time: Aug 17, 2023 10:07 AM Reporting Lab: [facility] [address] [address] Performing Lab: [address] [address] [place] URINALYS IS NITRITE [PRESENCE] IN URINE NEGATIVE mg/dL 08/16 Specimen Type: URINE Comment: If Glucose = >500 and Ketones are positive, please alert the Physician. Ordering Provider: ALISSON WRIGHT A Report Released Date/Time: Aug 17, 2023 10:07 AM Reporting Lab: [address] [address] Performing Lab: [facility] [address] [address] [place] URINALYS IS BILIRUBIN. TOTAL [PRESENCE] IN URINE NEGATIVE mg/dL 08/16 Specimen Type: URINE Comment: If Glucose = >500 and Ketones are positive, please alert the Physician. Ordering Provider: ALISSON WRIGHT A Report Released Date/Time: Aug 17, 2023 10:07 AM Reporting Lab: [facility] [address] [address] Performing Lab: [address] [address] [place] URINALYS IS SPECIFIC GRAVITY OF URINE BY REFRACTOME TRY 1.037 1.016 - 1.022 08/16 H Specimen Type: URINE Comment: If Glucose = >500 and Ketones are positive, please alert the Physician. Ordering Provider: ALISSON WRIGHT A Report Released Date/Time: Aug 17, 2023 10:07 AM Reporting Lab: [facility] [address] [address] Performing Lab: [facility] [address] [address] [place] URINALYS IS PH OF URINE BY TEST STRIP 6.0 5.0 - 9.0 08/16 Specimen Type: URINE Comment: If Glucose = >500 and Ketones are positive, please alert the Physician. Ordering Provider: ALISSON WRIGHT A Report Released Date/Time: Aug 17, 2023 10:07 AM Reporting Lab: [facility] [address] [address] Performing Lab: [facility] [address] [address] [place] URINALYS IS UROBILINOG EN [MASS/VOLU ME] IN URINE BY TEST STRIP <2.0mg/d L <2.0 - 2.0 08/16 Specimen Type: URINE Comment: If Glucose = >500 and Ketones are positive, please alert the Physician. Ordering Provider: ALISSON WRIGHT A Report Released Date/Time: Aug 17, 2023 10:07 AM Reporting Lab: [facility] [address] [address] Performing Lab: [facility] [address] [address] [place] URINALYS IS LEUKOCYTE ESTERASE [PRESENCE] IN URINE BY TEST STRIP NEGATIVE 08/16 Specimen Type: URINE Comment: If Glucose = >500 and Ketones are positive, please alert the Physician. Ordering Provider: ALISSON WRIGHT A Report Released Date/Time: Aug 17, 2023 10:07 AM Reporting Lab: [facility] [address] [address] Performing Lab: [facility] [address] [place] Infectio us Disease HIV-1/O/2 Non-Reac tive 1 (03/04/23 12:55 PM) 03/04 N Interpretiv e Data: INTERPRETAT ION: This method is a screening procedure for the detection of HIV p24 Antigen and Antibodies to HIV-1, including Group O, and/or HIV-2. NON-REACTIV E: HIV-1 antigen and HIV-1 / HIV-2 antibodies were not detected. No laboratory evidence of HIV infection. A negative test result does not exclude the possibility of exposure to or infection with HIV. HIV antibodies and/or p24 antigen may be undetectabl e in some stages of the infection and in some clinical conditions. If acute HIV infection is suspected, consider submitting another specimen to a reference laboratory for HIV-1 RNA. SCREEN REACTIVE - CONFIRMATIO N TO FOLLOW: Possible presence of HIV-1antibo dies, HIV-2 antibodies and/or HIV-1 p24 antigen. Specimen will reflex to the confirmatio n testing that fulfills the Center for Disease Control and Prevention' s HIV diagnostic algorithm. Refer to [facility] Lab Guide for additional information : https://Everywunx. [facility]/ kj/kx5/EPIL ab/Pages/la b_guide.asp x Testing performed by [facility] mayela paredes. [facility] Miscella neous Sendouts Repository Sample Received (03/04/23 12:55 PM) 03/04 N [facility] Miscella neous Sendouts Perfluorob utanesulfo winnie Acid LC None Detected 05/11 Result Comment: Reporting Limit: 0.050 ng/mL Synonym(s): PFBS Population reference interval derived from [facility] data (n=151) is usually less than 0.053 ng/mL (90% CI, <0.050-0.23 ng/mL) (97.5th percentile) General [place] population from CDC-NHANES (7676-4905) (f=8187) (isomers not described) is typically below 0.1 ng/mL (95th percentile) Analysis by [employer] Liquid Chromatogra phy/ Tandem Mass Spectrometr y (LC-MS/MS) EFFECTIVE June 27, 2022 [id number] Perfluoroak yl Substances, S/P will be made non-orderab le. [facility] offers order code [id number] PFAS Expanded, S/P. For further information , please contact your local [facility] Representat bailey. [facility] Miscella neous Sendouts Perfluoroh eptanoic Acid LC None Detected 05/11 Result Comment: Reporting Limit: 0.050 ng/mL Synonym(s): PFHpA Comment: Substance(s ) known to interfere with the identity and/or quantity of the reported result: Perfluorope ntanoic Acid (PFPeA); Perfluorohe xanoic Acid (PFPxA) Population reference interval derived from [facility] data (n=151) is usually less than 0.47 ng/mL (90% CI, 0.25-0.73 ng/mL) (97.5th percentile) General [place] population from [facility]-NHANES () (p=0273) (isomers not described) is typically below 0.20 ng/mL (95% CI, 0.10-0.20 ng/mL) (95th percentile) Analysis by [employer] Liquid Chromatogra phy/ Tandem Mass Spectrometr y (LC-MS/MS) [facility] Miscella neous Sendouts Perfluoroh exanesulfo winnie Acid LC 1.2 ng/mL 05/11 Result Comment: Reporting Limit: 0.050 ng/mL Synonym(s): PFHxS Population reference interval derived from [facility] data (n=151) is usually less than 5.8 ng/mL (90% CI, 4.1-17 ng/mL) (97.5th percentile) General [place] population from [facility]-NHANES () (r=9178) (isomers not described) is typically below 4.9 ng/mL (95% CI, 4.1-5.8 ng/mL) (95th percentile) Analysis by [employer] Liquid Chromatogra phy/ Tandem Mass Spectrometr y (LC-MS/MS) [facility] Miscella neous Sendouts Perfluoroo ctanoic Acid LC None Detected 05/11 Result Comment: Reporting Limit: 0.50 ng/mL Synonym(s): FC-143 Component; PFOA Population reference interval derived from [facility] data (n=151) is usually less than 4.1 ng/mL (90% CI, 3.3-8.0 ng/mL) (97.5th percentile) General [place]. population from CDC-NHANES () (q=9892) for the linear isomer is typically below 4.1 ng/mL (95% CI, 3.8-4.6 ng/mL) (95th percentile) Occupationa l Exposures: Mean serum concentrati ons from workers exposed at facilities that manufacture PFOA or its salts ranged from 840 to 6800 ng/mL (isomers not described). The reported serum range for all workers was 0 to 427050 ng/mL (isomers not described). Analysis by [employer] Liquid Chromatogra phy/ Tandem Mass Spectrometr y (LC-MS/MS) [facility] Miscella neous [facility]outs Perfluoron onanoic Acid LC 0.38 ng/mL 05/11 Result Comment: Reporting Limit: 0.050 ng/mL Synonym(s): PFNA Comment: Substance(s ) known to interfere with the identity and/or quantity of the reported result: Perfluorode canoic Acid (PFDA) Population reference interval derived from [facility] data (n=151) is usually less than 1.4 ng/mL (90% CI, 1.2-2.3 ng/mL) (97.5th percentile) General U.S. population from CDC-NHANES () (k=0593) (isomers not described) is typically below 1.9 ng/mL (95% CI, 1.5-2.2 ng/mL) (95th percentile) Analysis by [employer] Liquid Chromatogra phy/ Tandem Mass Spectrometr y (LC-MS/MS) [facility] Miscella neous Sendouts Perfluoroo ctanesulfo winnie Acid LC 2.2 ng/mL 05/11 Result Comment: Reporting Limit: 0.50 ng/mL Synonym(s): PFOS Population reference interval derived from [facility] data (n=151) is usually less than 12 ng/mL (90% CI, 7.7-15 ng/mL) (97.5th percentile) General U.S. population from CDC-NHANES () (m=2720) for the linear isomer is typically below 13 ng/mL (95% CI, 10-18 ng/mL) (95th percentile) Analysis by [employer] Liquid Chromatogra phy/ Tandem Mass Spectrometr y (LC-MS/MS) This test was developed and its performance characteris tics determined by [facility]. It has not been cleared or approved by the US Food and Drug Administrat ion. Performed At: [address] [id number] Shankar Spring PhD Ph:[phone] [facility] Vital Signs Combined list of inpatient and outpatient Vital Signs from Department of Defense and Veterans Affairs, ranging from 12 months to all on record, depending upon the facility. Vital Sign Value Date Comments Source No data available for this section Ambulatory Pharm acy SYSTOLIC BLOOD PRESSURE 99 10/19/2023 09:51:55 [facility] DIASTOLIC BLOOD PRESSURE 62 10/19/2023 09:51:55 [facility] PULSE OXIMETRY 96 10/19/2023 09:51:55 [place] WEIGHT 227.2 10/19/2023 09:51:55 [place] BMI 28kg/m2 10/19/2023 09:51:55 [place] TEMPERATURE 97.9 10/19/2023 09:51:55 [place] PULSE 88 10/19/2023 09:51:55 [place] SYSTOLIC BLOOD PRESSURE 112 08/17/2023 08:57:31 [facility] DIASTOLIC BLOOD PRESSURE 68 08/17/2023 08:57:31 [facility] PULSE OXIMETRY 98 08/17/2023 08:57:31 [place] WEIGHT 280 08/17/2023 08:57:31 [place] BMI 34kg/m2 08/17/2023 08:57:31 [place] PAIN 5 08/17/2023 08:57:31 [place] HEIGHT 76 08/17/2023 08:57:31 [place] TEMPERATURE 97.4 08/17/2023 08:57:31 [place] PULSE 84 08/17/2023 08:57:31 [place] RESPIRATION 16 08/17/2023 08:57:31 [place] Encounters Combined list of: 1) Encounters from Department of Veterans Affairs facilities going back up to thelast 18 months. 2) Encounters from the Department of Defense facilities going back up to 280 months. 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 ALEXIA COBB Saw 03/25 Released w/o Limitations [facility] [place] [address]([facility] Danny Ramsey) Theater Facility OUTPATIENT [id number] Theater Provider 09/12 Released w/o Limitations [facility] OUTPATIENT [id number] 1 Theater Provider 10/01 Released w/o Limitations [facility] OUTPATIENT [id number] Theater Provider 10/08 Released w/o Limitations [facility] OUTPATIENT [id number] Theater Provider 10/16 Released w/o Limitations [facility] OUTPATIENT [id number] 3 Theater Provider 12/08 Released w/o Limitations Theater [facility] [id number]-[id number] [facility]DS Outpatient [id number] EVA GISELA 03/04 Discharge Disposition: Home or Self Care 8344R-4 [id number] AMDS [id number] AMDS Between Visit [id number] 04/11 Discharge Disposition: Home or Self Care 8344R-4 39 AMDS [facility] [place] [facility] Outpatient Encounter [id number] 06/21 [facility] [facility] [place] [facility] MIN [id number] Diagnos is: ICD-10- CM N52.9 Male erectil e dysfunc tion, unspeci fied
ERICH WRIGHT 08/16 [facility] [id number] Diagnos is: ICD-10- CM F33.2 Major depress v disorde r, recurre nt severe w/o psych feature s
WILEY REY [place] [facility] [place] Outpatient Encounter [id number] 09/07 [facility] [place] [facility] [place] IMMUNIZATI ON ADMIN 1. WRIGHTERICH VID A 10/18 [facility] [place] [facility] [place] OFF[place] O/P EST LOW 20 MIN [id number] Diagnos is: ICD-10- CM M54.50 Low back pain, unspeci fied
ERICH WRIGHT VID A [place] [facility] [place] Outpatient Encounter 1.11/27 [facility] [place] [facility] [id number] AMDS Between Visit [id number] 12/03 Discharge Disposition: Home or Self Care [id number] [id number] AMDS [facility] [place] [facility] Outpatient Encounter [id number] 12/18 [facility] [place] [facility] QNHP OL DIG ASSMT&MGMT 5-10 [id number] Diagnos is: ICD-10- CM Z51.81 Encount er for therape utic drug level monitor ing<br/ > NINFA VALENTINE [place] [facility] [place] [facility] Outpatient Encounter [id number] 01/22 [facility] [place] [facility] [place] [facility] Outpatient Encounter [id number] 01/31 [facility] [place] [facility] [place] [facility] Outpatient Encounter [id number] Diagnos is: ICD-10- CM F32.9 Major depress bailey disorde r, single episode , unspeci fied
EVA SALGUERO E 01/31 [facility] [place] [facility] [facility] Procedures Combined list of: 1) Procedures from Department of Veterans Affairs facilities going back up to thelast 18 months, not all [place] non-surgical procedures are included; 2) All procedures from the Department of Defense facilities. Procedure Procedure Type Code Date Perfomer Comments Lindsey e No data available for this section Ambulato ry Pharmacy SPIROMETRY, INCLUDING GRAPHIC RECORD, TOTAL AND TIMED VITAL CAPACITY, EXPIRATORY FLOW RATE MEASUREMENT(S), WITH OR WITHOUT MAXIMAL VOLUNTARY VENTILATION 03/25/[address] [facility] THERAPEUTIC, PROPHYLACTIC, OR DIAGNOSTIC INJECTION (SPECIFY SUBSTANCE OR DRUG); SUBCUTANEOUS OR INTRAMUSCULAR 03/05/[address] [facility] Spirometry Spirometry 09570 03/25/[address] [facility] Extensive Color Vision Testing Extensive Color Vision Testing 40370 03/25/19 14 ALEX[facility] COBB Screening Test Of Visual Acuity, Quantitative, Bilateral Screening Test Of Visual Acuity, Quantitative, Bilateral 41330 03/25/[address] [facility] ECG 12-Lead With Interpretation And Report ECG 12-Lead With Interpretation And Report [id number] 03/25/[address] [facility] Social History Combined list of available smoking, tobacco, and other social history from Department of Defense and Veterans Affairs facilities. Social History Type Response Date Comment Lindsey abad Tobacco smoking status [facility] VA-TOBACCO NEVER USED 08/17/19 24 [facility] This section is an empty soc ial history section. DoD Assessment and Plan Combined list of future care activities from Department of Defense and Veterans Affairs facilities (e.g., assessment and plan notes, appointments, orders, and referrals). Additional future care activities may be listed in the Plan of Care section. Result Assessment and Plan Date Source Assessment and Plan No data available for this section 02/16/2024 Ambulatory Pharmacy Plan of Care List of future care activities from Department of Veterans Affairs facilities. Additional future care activities may be listed in the Assessment and Plan section. Date/Time Care Activity Care Activity Detail Facili ty 02/26/2024 AMBULATORY - MEDICINE [facility]IC[facility] [place] 04/05/2024 [facility] 04/19/2024 AMBULATORY - PSYCHIATRY [facility] Functional Status Combined list of recent functional and cognitive assessments recorded at Department of Defense and Veterans Affairs ([place] Functional Douds Measurement (FIM) Scale: 1 = Total Assistance (Subject = 0% +), 2 = Maximal Assistance (Subject = 25% +), 3 = Moderate Assistance (Subject = 50% +), 4 = Minimal Assistance (Subject = 75% +), 5 = Supervision, 6 = Modified Douds (Device), 7 = Complete Douds (Timely, Safely). Assessment Date/Time Source Assessment Type Assessment Skill Assessment Score Assessment Details No data available for this section
--- OUTSIDE RECORDS SUMMARY | 2024-02-16 11:05 | XMS_ITS ---
Author Name [facility] [place] [facility] [place] Address [address] [place] [address] Care Team Providers Care Manager Program Management Name Role Phone MADISON WRIGHT Primary Care [...] section includes the information on record at [place] for the Encounter. Date/Time Encounter Type Encounter Description Reason Pro vider Source Jun 22, 2023 01:05 PM Outpatient Encounter PRIMARY CARE/MEDICINE IHE Encounter Template Text not used by [place] Plan of Treatment: Future Appointments (+ 6 months) and Future Tests (+/- 45 days) The Plan of Treatment section includes future care activities for the patient from all [place] treatmentfacilities. This section includes future appointments and future orders which are active, pending or scheduled. Future Appointments This section includes appointments that were scheduled to occur 6 months from the date of the Encounter, up to a maximum of 20 appointments. The data comes from all [place] treatment facilities. Appointment Date/Time Appointment Type Appointme nt Facility Name Aug 17, 2023 09:00 AM AMBULATORY - MEDICINE [facility] Sep 04, 2023 09:00 AM AMBULATORY - PS[facility]CHIATRY [facility] Oct 19, 2023 10:00 AM AMBULATORY - MEDICINE [place] Dec 19, 2023 09:30 AM [facility]UL[facility] MEDICINE [facility] [place] [facility] Encounter Notes: All associated encounter notes This section contains the clinical notes associated to the Encounter. Date/Time Encounter Note(s) Provider Source Jun 22, 2023 01:05 PM LETTERS: LOCAL TITLE: PATIENT LETTER (T) STANDARD TITLE: LETTERS DATE OF NOTE: JUN 22, 2023@13:05 ENTRY DATE: JUN 22, 2023@13:05:09 AUTHOR: DOMINIQUE ALAS EXP COSIGNER: URGENCY: STATUS: COMPLETED DEPARTMENT OF [facility] Toll Free Number Primary Care Telephone Assistance can be reached at extension [phone] [facility] scheduling can be reached at extension [phone] [facility] scheduling can be reached at ext [phone] BRUNO MCCLELLAND SANTI [address] [place] [address], [phone] Dear , Welcome to patient aligned care team 1 (PACT 1) with ZOEY WRIGHT. Prior to meeting you at your new patient appointment we are requesting some of your past medical history so that we may provide you with the exceptional care you deserve. Please note that it is very helpful to have these documents at least two days prior to your appointment date as the more information we have the better we will be able to meet your needs: * Last History & Physical * Immunization records * Medication list * Diagnosis list * Most recent labs * Diagnostic screens (Colonoscopy, Abdominal Aortic Aneurysm screen, Mammograms, PAPS, etc.) You may either drop the requested records off in person to [address] [place] [address] or you may have them faxed to: [phone] ATTN: PACT 1 *Also please complete the enclosed new patient packet and drop it off at our [place] location: [address] [place] [address]* If you have any questions please do not hesitate to contact the Department of 's Affairs call center at . We look forward to providing your health care! Sincerely, Your Primary Care Team [facility] [address] [facility] [address] [place] [address] [place], [place] [id number] [facility] [address] [place] [address] [place] [address] [phone] [facility] [address] [facility],[address]st Floor [address] [place] [address] [place] [address] DOMINIQUE ALAS [place]
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
--- OUTSIDE RECORDS SUMMARY | 2024-02-16 11:05 | XMS_ITS | Encounter Summary ---
Author Name [facility] [place] [facility] [facility] [place] Address [address] [place] [address] Care Team Providers Care Anatomy And Physiology Instructor Name Role Phone MADISON WRIGHT Primary Care [...] section includes the information on record at [place] for the Encounter. Date/Time Encounter Type Encounter Description Reason Provider Source Oct 19, 2023 10:00 AM OFFICE O/P EST LOW 20 MIN PRIMARY CARE/MEDICINE ICD-10-CM M54.50 Low back pain, unspecified MADISON WRIGHT Encounter Template Text not used by [place] Assessments - Encounter Diagnoses This section includes the primary and secondary diagnoses documented for the Encounter. Date/Time Primary/Secondary Diagnosis Diagnosis Name Provider Source Nov 04, 2023 01:46 PM PRIMARY Low back pain, unspecified MADISON WRIGHT Nov 04, 2023 01:46 PM SECONDARY Major depressive disorder, single episode, unspecified MADISON WRIGHT Nov 04, 2023 01:46 PM SECONDARY Male erectile dysfunction, unspecified MADISON WRIGHT Nov 04, 2023 01:46 PM SECONDARY Oth abnormal findings in specimens from oth org/tiss MADISON WRIGHT Nov 04, 2023 01:46 PM SECONDARY Pain in left wrist MADISON WRIGHT Plan of Treatment: Future Appointments (+ 6 months) and Future Tests (+/- 45 days) The Plan of Treatment section includes future care activities for the patient from all [place] [facility]. This section includes future appointments and future orders which are active, pending or scheduled. Future Appointments This section includes appointments that were scheduled to occur 6 months from the date of the Encounter, up to a maximum of 20 appointments. The data comes from all [place] treatment facilities. Appointment Date/Time Appointment Type Appointme nt Facility Name Dec 19, 2023 09:30 AM [facility] [place] [facility] Feb 26, 2024 03:00 PM AMBULATORY - MEDICINE [facility] Apr 05, 2024 09:00 AM AMBULATORY - MEDICINE [facility] Apr 19, 2024 09:00 AM AMBULATORY - PSYCHIATRY [facility] Apr 19, 2024 09:00 AM [facility] Active, Pending, and Scheduled Orders This section includes a listing of several types of active, pending, and scheduled orders, including clinic medications orders, diagnostic test orders, procedure orders and consult orders; where the start date of the order is 45 days before the date of the Encounter or 45 days after the date of theEncounter. The data comes from all [facility]. Test Date/Time Test Type Test Details Facility Name Sep 04, 2023 12:20 PM Consult Order PSYCHOTHER APY [facility]OPC OUTPT [facility] Sep 04, 2023 12:20 PM Consult Order VISN [address] [facility] PS[facility]CHIATRY OUTPT IFC CT [facility] Oct 19, 2023 12:00 AM Laboratory - Chemi stry Order TESTOSTERONE, TOTAL (WHV) BLOOD (SST-GOLD) [facility] Oct 19, 2023 12:00 AM Laboratory - Chemi stry Order TESTOSTERONE-FREE (qu) BLOOD (RED-PLAIN) [facility] Vital Signs: All taken on the encounter date This section contains inpatient and outpatient Vital Signs collected on the date of the Encounter. Date/Time Temperature Pulse Blood Pressure Respiratory Rate SP02 Pain Height Weight Body Mass Index Source Oct 19, 2023 09:51 AM 118/83 [facility] Oct 19, 2023 09:51 AM 97.9 88 99/62 96 227.2 28 [facility] Social History: Smoking Status (Most current) and Tobacco Use (All prior to encounter date) This section includes the most current, and the historical, smoking and tobacco- related health factors from the [place] facility where the Encounter took place. Current Smoking Status This section includes the most current smoking, or tobacco-related health factor, from the [place] facility where the Encounter took place. Date/Time Current Smoking Status Comment Facil [facility]rick Aug 17, 2023 09:00 AM VA-TOBACCO NEVER USED [facility] Encounter Notes: All associated encounter notes This section contains the clinical notes associated to the Encounter. Date/Time Encounter Note(s) Provider Source Oct 19, 2023 09:58 AM PRIMARY CARE NURSE PRACTITIONER OUTPATIENT NOTE: LOCAL TITLE: NURSE PRACTITIONER OUTPATIENT NOTE STANDARD TITLE: PRIMARY CARE NURSE PRACTITIONER OUTPATIENT NOTE DATE OF NOTE: OCT 19, 2023@09:58 ENTRY DATE: OCT 19, 2023@09:58:30 AUTHOR: MADISON WRIGHT COSIGNER: URGENCY: STATUS: COMPLETED PRIMARY CARE VISIT BRUNO HANCOCK, is a 38 yo WHITE MALE who presents at the [place] [facility]. TYPE OF VISIT: Face to face 36-year-old male currently serving in the [employer] [facility] with chronic low back pain, MDD, gynecomastia status postsurgical repair, and COVID-19 in 2019 not requiring hospitalization presented to the outpatient clinic in regular follow-up. He is currently comanaged with a community PCP but plans to [facility] all of [facility] the [facility]. Today he complains of left wrist pain x 3 weeks. No known trauma. Recent labs and diagnostic studies were reviewed with the [facility]. All medications were reconciled during this visit. HEALTHCARE PROVIDERS: Community PCP: Dr. Santiago Chiropractor: Claire in [place] Derm: [facility] Social Hx: Recently and living with his parents currently. He has never smoked. Drinks alcohol occasionally but not to excess. No MJ or other substances. 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 He gets regular exercise daily at the gym lifting weights and aerobics. Family history: Father: Recently passed at age 65. DM, CAD, alcohol abuse, illicit drug abuse. Mother: Alive at age 65. Multiple sclerosis. Paternal grandfather: Diabetes A brother and a sister with no known medical problems. HISTORY: PERIOD OF SERVICE - [facility] [employer] FROM Mar TO Mar COMBAT SERVICE INDICATED: No MEDICAL HISTORY Active Problem Chronic low back pain M54.50 08/17/2023 MADISON WRIGHT COVID-19 U07.1 08/17/2023 MADISON WRIGHT Gynaecomastia N62. 08/17/2023 MADISON WRIGHT Exposure to potentially hazardous s 08/17/2023 MADISON WRIGHT Under care of multiple providers R6 08/17/2023 MADISON WRIGHT FHx R69. 08/17/2023 MADISON WRIGHT Major depressive disorder F32.9 08/17/2023 MADISON WRIGHT Erectile dysfunction N52.9 08/17/2023 MADISON WRIGHT VITAL SIGNS: Temperature 97.4 F [36.3 C] (08/17/2023 08:57) Blood Pressure 112/68 (08/17/2023 08:57) Pulse 84 (08/17/2023 08:57) Respiration 16 (08/17/2023 08:57) Pain 5 (08/17/2023 08:57) BMI BMI: 34.2 Weight 280 lb [127.01 kg] (08/17/2023 08:57) Pulse Oximetry 98% (08/17/2023 08:57) ASSISTIVE DEVICES: None REVIEW OF SYSTEMS: CONSTITUTIONAL: No fevers, chills, weight loss/gain ENT: No sore throat, sneezing, congestion, rhinorrhea, anosmia, or ageusia. CARDIOVASCULAR: No chest pain, palpitations, or increased pedal edema RESPIRATORY: No SOB, cough, sputum, wheeze. GASTROINTESTINAL: Denies abd pain, N/V/D. No melena or hematochezia. No tenesmus or constipation. GENITOURINARY: No burning micturition. No urinary frequency or urgency. No nocturia. MUSCULOSKELETAL: No myalgias or arthralgias. PSYCHIATRIC: No new anxiety or depression. No sleep disturbance. NEUROLOGIC: No headaches, dizziness, numbness or tingling in the extremities, or unilateral weakness. EXAMINATION General: Well-appearing in no obvious distress. Mental Status: Alert and oriented x4. Head: Normocephalic. Eyes: PERRLA. EOMI. Anicteric sclerae. ENT: Moist oral mucosa. Posterior pharynx unremarkable Neck: Supple. No thyromegaly. No LAD. No bruit. Lungs: CTA. Normal chest excursion. Eupneic respirations. CV: Heart tones S1, S2. RRR. No M/G/R. No peripheral edema GI: Abdomen is soft and nontender. No HSM or mass. : No CVA tenderness. Ext: Left wrist with point tenderness at the base of the thumb. No gross deformities. Neuro: CN II through XII grossly intact. Normal speech. Normal gait. Integument: Skin warm and dry. No concerning lesions or rashes. Psych: Normal mood and affect. Normal judgment. ALLERGIES: ========= Patient has answered NKA >> HEALTH MAINTENANCE PREVENTIVE MEDICINE GOALS Info Only: VA Video Connect Capable DUE NOW Advance Directive Screen MH AD DUE NOW Influenza Immunization DUE NOW Medication Reconciliation DUE NOW COVID-19 Immunization DUE NOW Tdap Immunization DUE NOW (Optional) Whole Health Documentation DUE NOW ASSESSMENT/PLAN: Active problems - Computerized Problem List is the source for the following: Chronic low back pain: Takes OTC NSAIDs for effective relief. Major depressive disorder: Following with [facility]. Negative SI/HI. Erectile dysfunction: Agreed to a sildenafil trial at last visit which has not been effective in relieving symptoms.. Total testosterone level normal. Reviewed with [facility]. Referred to urology. Elevated vitamin D: Vitamin D level high at 56. Takes OTC supplement. Advised to stop. Check level prior to next visit. Pain in the left wrist: Possible de Quervain tenosynovitis. X-ray left wrist to further inform care. In the interim, wrist splint applied which did provide some immediate relief. FOLLOW UP: RTC Below & sooner PRN UPCOMING APPOINTMENTS: 10/19/2023 10:00 CWM/SO/PACT 1 SILK CONDITIONER 04/05/2024 09:00 [facility] C[facility]-DER[facility] 35 minutes spent in patient evaluation, data review, and patient education. All medications were reconciled during this visit. No barriers; Patient understands and agrees to current treatment plan. If pt has any questions, concerns, or changes in current health status he/she will call or come in to the [facility]. Medication Reconciliation: Outpatient: Has the patient been taking medications as documented in the EMLR? YES: The patient has been taking medications as documented in the EMLR. Essential Medication List for Review used to complete this medication reconciliation. INCLUDED IN THIS LIST: Alphabetical list of active outpatient prescriptions dispensed from this VA (local) and dispensed from another VA or DoD facility (remote) as well as inpatient orders (local, pending and active), local clinic medications, locally documented non-VA medications, and local prescriptions that have or been discontinued in the past 90 days. - All changes in medications, including all non-VA/Herbal/OTC medications were entered into CPRS. - If there were any medications the patient should no longer take, they were discontinued. - The patient/caregiver was instructed to update this list, discard old lists, and take this list to the next appointment, whether with a VA or non-VA provider. /caroline/ MADISON WRIGHT NP NURSE PRACTITIONER Signed: 11/04/2023 13:44 MADISON WRIGHT Oct 12, 2023 01:06 PM ADMINISTRATIVE NOT E: LOCAL TITLE: ADMINISTRATIVE NOTE STANDARD TITLE: ADMINISTRATIVE NOTE DATE OF NOTE: OCT 12, 2023@13:06 ENTRY DATE: OCT 12, 2023@13:06:25 AUTHOR: REBECA JOHNS EXP COSIGNER: URGENCY: STATUS: COMPLETED [facility] [address] [place] [id number] [phone] * BRUNO HANCOCK [address], [place] [address] Date: OCT 12, 2023 re: This is a reminder of your upcoming PCP appt with MADISON WRIGHT Appointment Date: Sep@10:00 Appointment Type: In-person visit Fasting blood work NON fasting blood work LEFT MESSAGE ON VOICEMIAL TO CONFIRM APPT Sincerely, Office Staff for: MADISON WRIGHT Primary Care Provider [facility] [address] [place] [id number] T [phone] Upcoming Appointments: 10/19/2023 10:00 CWM/SO/PACT 1 SILK CONDITIONER 04/05/2024 09:00 [facility] APPOINTMENT ABBREVIATION GTZ (SPOPC OR SO = [address]) (GOPC OR GO = [address]) (NHM or NO = [facility]) (VVC - Video Call) (Tel-X Telephone Visit) (TH - Telehealth) /es/ REBECA JOHNS AMSA Signed: 10/12/2023 13:07 REBECA JOHNS [facility]
--- OUTSIDE RECORDS SUMMARY | 2024-02-16 11:05 | XMS_ITS | Encounter Summary ---
Author Name [facility] [place] [facility] [place] Address [address] [place] [id number] Care Team Providers Care Dental Aide Name Role Phone MADISON WRIGHT Primary Care [...] section includes the information on record at [place] for the Encounter. Date/Time Encounter Type Encounter Description Reason Pro vider Source Nov 28, 2023 03:27 PM Outpatient Encounter PRIMARY CARE/MEDICINE I[facility] Encounter Template Text not used by [place] Plan of Treatment: Future Appointments (+ 6 months) and Future Tests (+/- 45 days) The Plan of Treatment section includes future care activities for the patient from all [place] treatmentfacilities. This section includes future appointments and future orders which are active, pending or scheduled. Future Appointments This section includes appointments that were scheduled to occur 6 months from the date of the Encounter, up to a maximum of 20 appointments. The data comes from all [place] treatment facilities. Appointment Date/Time Appointment Type Appointme nt Facility Name Dec 19, 2023 09:30 AM AMBULATORY - [place]ICINE [place] C [facility] Feb 26, 2024 03:00 PM AMBULATORY - MEDICINE [facility] Apr 05, 2024 09:00 AM AMBULATORY - MEDICINE [place] [facility] Apr 19, 2024 09:00 AM AMBULATORY - [place] [facility] [place] [place] [facility] Apr 19, 2024 09:00 AM AMB[facility]ORY - PS[facility]IATRY [facility] Active, Pending, and Scheduled Orders This section includes a listing of several types of active, pending, and scheduled orders, including clinic medications orders, diagnostic test orders, procedure orders and consult orders; where the start date of the order is 45 days before the date of the Encounter or 45 days after the date of theEncounter. The data comes from all [place] treatment facilities. Test Date/Time Test Type Test Details Facility Name Oct 19, 2023 12:00 AM Laboratory - Chemi stry Order TESTOSTERONE, TOTAL (WHV) BLOOD (SST-GOLD) [facility] Oct 19, 2023 12:00 AM Laboratory - Chemi stry Order TESTOSTERONE-FREE (qu) BLOOD (RED-PLAIN) [facility] Encounter Notes: All associated encounter notes This section contains the clinical notes associated to the Encounter. Date/Time Encounter Note(s) Provider Source Dec 01, 2023 11:53 AM ADDENDUM: LOCAL TITLE: Addendum STANDARD TITLE: ADDENDUM DATE OF NOTE: DEC 01, 2023@11:53:23 ENTRY DATE: DEC 01, 2023@11:53:24 AUTHOR: ADRIENNE MORLEY EXP COSIGNER: URGENCY: STATUS: COMPLETED Adding PCP to review and advise. /caroline/ ADRIENNE MORLEY RN REGISTERED NURSE Signed: 12/01/2023 11:53 Receipt Acknowledged By: 12/05/2023 16:14 /caroline/ MADISON WRIGHT NP NURSE PRACTITIONER ====== --- Original Document --- 11/28/23 PRIMARY CARE SECURE MESSAGING: ------Original Message ------- Sent: 11/28/2023 03:03 PM ET From: BRUNO LINDSEY To: Wyatt WRIGHT_PRIMARY CARE_[facility] Subject: General:Erroneous rating reduction, could use your help Good afternoon sir, I received a letter from the [place], stating that my 50% rating for simple mastectomy with areola graft was an error, and is being reduced to 0%. This doesn't seem to be correct at all, and I could use your help and maybe have a letter drafted to appeal. I have reviewed the schedule of ratings found at: https://www.ec.gov/cur rent/title-38/chapter-I/ part-4/subpart-B /tvstxkt-rejnc-NCDM416lx [id number]/section-4.116 A 50% rating is awarded for Following simple mastectomy or wide local excision with significant alteration of size or form. A 0% rating is awarded for Following wide local excision without significant alteration of size or form. In the definition section below that, a wide local excision is defined as (including partial mastectomy, lumpectomy, tylectomy, segmentectomy, and quadrantectomy) means removal of a portion of the breast tissue. Whereas a simple (or total) mastectomy is defined as (3) Simple (or total) mastectomy means removal of all of the breast tissue, nipple, and a small portion of the overlying skin, but lymph nodes and muscles are left intact. The procedure that I underwent was defined as a mastectomy, the nipple and areola were completely removed, reshaped, and grafted, and all of the glandular and adipose tissue were removed. Significant skin was removed, due to the significant mass of material removed on both sides. My understanding is that it was a complete mastectomy, bilaterally. Saying that they made an error and that it should be 0% seems inaccurate. They are classifying it as a wide local excision, when the medical documentation classified it as a simple (not partial) mastectomy with areola graft. Additionally I looked into all the language and guidance, and the 50% applies to men and women. The only thing specific to just women here is the special monthly compensation (SMC) of 25%, which I am not applying for. I could use your help here, with a review of my record and hopefully a letter substantiating what I've said here. I had to deal with horrible gynecomastia for over 3 years before I got surgery, and even after surgery my chest and areolas are significantly altered for the rest of my life, and there's nothing that can be done to fix that or the scarring. Thinking about getting a tattoo eventually to try to mask it. The radiation and toxic exposures [place] suffered in [place] caused this whole problem, and having to deal with a rating reduction is adding extra stress that I really don't need right now. Thank you for the help! -Bruno Lindsey /caroline/ REBECA ZAVALA Signed: 11/28/2023 15:27 Receipt Acknowledged By: 12/05/2023 13:54 /caroline/ DOUGLAS STALLINGS LPN LPN 12/01/2023 11:53 /caroline/ ADRIENNE MORLEY RN REGISTERED NURSE ADRIENNE MORLEY [facility] [place] [facility] Nov 28, 2023 03:27 PM PRIMARY CARE SECURE MESSAGING: LOCAL TITLE: PRIMARY CARE SECURE MESSAGING STANDARD TITLE: PRIMARY CARE SECURE MESSAGING DATE OF NOTE: NOV 28, 2023@15:27 ENTRY DATE: NOV 28, 2023@15:27:10 AUTHOR: REBECA JOHNS EXP COSIGNER: URGENCY: STATUS: COMPLETED PRIMARY CARE SECURE MESSAGING Has ADDENDA ------Original Message ------- Sent: 11/28/2023 03:03 PM ET From: BRUNO LINDSEY To: Wyatt WRIGHT_PRIMARY CARE_[facility] Subject: General:Erroneous rating reduction, could use your help Good afternoon sir, I [facility] from the [facility], stating that my 50% rating for simple mastectomy with areola graft was an error, and is being reduced to 0%. This doesn't seem to be correct at all, and I could use your help and maybe have a letter drafted to appeal. I have reviewed the schedule of ratings found at: https://www.[facility].gov/cur rent/title-38/chapter-I/ part-4/subpart-B /onxviwo-wcpmc-KJWZ061rp [id number]/section-4.116 A 50% rating is awarded for Following simple mastectomy or wide local excision with significant alteration of size or form. A 0% rating is awarded for Following wide local excision without significant alteration of size or form. In the definition section below that, a wide local excision is defined as (including partial mastectomy, lumpectomy, tylectomy, segmentectomy, and quadrantectomy) means removal of a portion of the breast tissue. Whereas a simple (or total) mastectomy is defined as (3) Simple (or total) mastectomy means removal of all of the breast tissue, nipple, and a small portion of the overlying skin, but lymph nodes and muscles are left intact. The procedure that I underwent was defined as a mastectomy, the nipple and areola were completely removed, reshaped, and grafted, and all of the glandular and adipose tissue were removed. Significant skin was removed, due to the significant mass of material removed on both sides. My understanding is that it was a complete mastectomy, bilaterally. Saying that they made an error and that it should be 0% seems inaccurate. They are classifying it as a wide local excision, when the medical documentation classified it as a simple (not partial) mastectomy with areola graft. Additionally I looked into all the language and guidance, and the 50% applies to men and women. The only thing specific to just women here is the special monthly compensation (SMC) of 25%, which I am not applying for. I could use your help here, with a review of my record and hopefully a letter substantiating what I've said here. I had to deal with horrible gynecomastia for over 3 years before I got surgery, and even after surgery my chest and areolas are significantly altered for the rest of my life, and there's nothing that can be done to fix that or the scarring. Thinking about getting a tattoo eventually to try to mask it. The radiation and toxic exposures [place] suffered [place] caused this whole problem, and having to deal with a rating reduction is adding extra stress that I really don't need right now. Thank you for the help! -Bruno Lindsey /caroline/ REBECA ZAVALA Signed: 11/28/2023 15:27 Receipt Acknowledged By: 12/05/2023 13:54 /es/ DOUGLAS STALLINGS LPN LPN 12/01/2023 11:53 /caroline/ ADRIENNE MORLEY RN REGISTERED NURSE 12/01/2023 ADDENDUM STATUS: COMPLETED Adding PCP to review and advise. /caroline/ ADRIENNE MORLEY RN REGISTERED NURSE Signed: 12/01/2023 11:53 Receipt Acknowledged By: * AWAITING SIGNATURE * MADISON WRIGHT [facility]
--- OUTSIDE RECORDS SUMMARY | 2024-02-16 11:05 | XMS_ITS | Encounter Summary ---
Author Name [facility] [place] [facility] [place] Address [address] [place] [id number] Care Team Providers Care Water Service Supervisor Name Role Phone MADISON WRIGHT [facility] Providers: All historical and current [...] Description Reason Provider Source Oct 19, 2023 09:59 AM IMMUNIZATION ADMIN PRIMARY CARE/MEDICINE ICD-10-CM Z23. Encounter for immunization MADISON WRIGHT [facility] Encounter Template Text not used by [place] Assessments - Encounter Diagnoses This section includes the primary and secondary diagnoses documented for the Encounter. Date/Time Primary/Secondary Diagnosis Diagnosis Name Provider Source Oct 19, 2023 09:59 AM SECONDARY Encounter for immunization ANJEL STALLINGS [facility] Plan of Treatment: Future Appointments (+ 6 months) and Future Tests (+/- 45 days) The Plan of Treatment section includes future care activities for the patient from all [facility] treatment[facility]ilities. This section includes future appointments and future orders which are active, pending or scheduled. Future Appointments This section includes appointments that were scheduled to occur 6 months from the date of the Encounter, up to a maximum of 20 appointments. The data comes from all [place] treatment [facility]. Appointment Date/Time Appointment Type Appointme nt Facility Name Dec 19, 2023 09:30 AM [facility] [place] [facility] Feb 26, 2024 03:00 PM [facility]BULATORY [facility] MEDICINE [facility] Apr 05, 2024 09:00 AM AMBULATORY - MEDICINE [place] [facility] Apr 19, 2024 09:00 AM [facility] Apr 19, 2024 09:00 AM [facility] [place] [facility] [facility] Active, Pending, and Scheduled Orders This section includes a listing of several types of active, pending, and scheduled orders, including clinic medications orders, diagnostic test orders, procedure orders and consult orders; where the start date of the order is 45 days before the date of the Encounter or 45 days after the date of theEncounter. The data comes from all [facility]. Test Date/Time Test Type Test Details Facility Name Sep 04, 2023 12:20 PM Consult Order PSYCHOTHER APY [facility] OUTPT [facility] [place] Sep 04, 2023 12:20 PM Consult Order VISN 1 [facility] PSYCHIATRY OUTPT IFC CT [facility] Oct 19, 2023 12:00 AM Laboratory - Chemi stry Order TESTOSTERONE, TOTAL (WHV) BLOOD (SST-GOLD) [facility] Oct 19, 2023 12:00 AM Laboratory - Chemi stry Order TESTOSTERONE-FREE (qu) BLOOD (RED-PLAIN) [facility] Immunizations: All administered on the encounter date This section contains immunizations associated to the Encounter. Immunization Series Date Issued Reaction Comments TDAP Oct 19, 2023 Encounter Notes: All associated encounter notes This section contains the clinical notes associated to the Encounter. Date/Time Encounter Note(s) Provider Source Oct 19, 2023 09:59 AM PREVENTIVE MEDICIN E NURSING NOTE: LOCAL TITLE: CLINICAL REMINDERS/NURSING STANDARD TITLE: PREVENTIVE MEDICINE NURSING NOTE DATE OF NOTE: OCT 19, 2023@09:59 ENTRY DATE: OCT 19, 2023@09:59:41 AUTHOR: DOUGLAS STALLINGS COSIGNER: URGENCY: STATUS: COMPLETED COVID-19 Immunization: Additional Information: CDC Interim Clinical Considerations for Use of COVID-19 Vaccines in [facility] COVID-19 Vaccine [employer] Tdap Immunization: Administered: TDAP Date Administered: Oct 19, 2023 10:00 Spool Cleaner: Oration Lot: [id number] Exp Date: Dec 13, 2024 [facility]: [id number] Admin Route/Site: INTRAMUSCULAR/RIGHT DELTOID Dosage: 0.5mL Vaccine Information Statement(s): TDAP (TETANUS, DIPHTHERIA, PERTUSSIS) VACCINE VIS Oct 02, 2020 ([place]) Order By: Policy Administered By: Douglas Stallings Vaccine Information Sheet (VIS) was given to the patient/caregiver, education regarding adverse reactions was discussed, as well as barriers to learning, if any, were acknowledged. Information on advanced directives given to . /caroline/ DOUGLAS STALLINGS LPN LPN Signed: 10/19/2023 10:01 DOUGLAS STALLINGS [place]
--- OUTSIDE RECORDS SUMMARY | 2024-02-16 11:05 | XMS_ITS | Encounter Summary ---
Author Name [facility] [place] [facility] [place] [facility] [place] Address [address] [place] [id number] Care Team Providers Care Chromium Plater Name Role Phone MADISON WRIGHT Primary Care [...] section includes the information on record at [place] for the Encounter. Date/Time Encounter Type Encounter Description Reason Provider Source Dec 21, 2023 07:50 AM QIDP OL DIG ASSMT&MGMT 5-10 CLINICAL PHARMACY ICD-10-CM Z51.81 Encounter for therapeutic drug level monitoring CRESENCIO VALENTINE [place] Encounter Template Text not used by [place] Assessments - Encounter Diagnoses This section includes the primary and secondary diagnoses documented for the Encounter. Date/Time Primary/Secondary Diagnosis Diagnosis Name Provider Source Dec 21, 2023 07:57 AM PRIMARY Encounter for therapeutic drug level monitoring RADHA VALENTINE AYE Plan of Treatment: Future Appointments (+ 6 [...] 20 appointments. The data comes from all [place] treatment facilities. Appointment Date/Time Appointment Type Appointme nt Facility Name Feb 26, 2024 03:00 PM AMBULATORY - MEDICINE [facility] Apr 05, 2024 09:00 AM AMBULATORY - MEDICINE [facility] Apr 19, 2024 09:00 AM [facility] [place] [facility] Apr 19, 2024 09:00 AM [facility] [place] [facility] Social History: Smoking Status (Most current) and Tobacco Use (All prior to encounter date) This section includes the most current, and the historical, smoking and tobacco- related health factors from the [facility] facility where the Encounter took place. Current Smoking Status This section includes the most current smoking, or tobacco-related health factor, from the [place] facility where the Encounter took place. Date/Time Current Smoking Status Comment Facil [facility] Aug 17, 2023 09:00 AM [place]-TOBACCO NEVER USED [place] Encounter Notes: All associated encounter notes This section contains the clinical notes associated to the Encounter. Date/Time Encounter Note(s) Provider Source Dec 21, 2023 07:54 AM PHARMACY CONSULT: LOCAL TITLE: CONSULT REPORT/PRIOR [facility] PADR STANDARD TITLE: PHARMACY CONSULT DATE OF NOTE: DEC 21, 2023@07:54 ENTRY DATE: DEC 21, 2023@07:54:53 AUTHOR: RADHA VALENTINE COSIGNER: URGENCY: STATUS: COMPLETED The medical record has been reviewed with regard to this restricted drug request. Medication requested: TADALAFIL 20MG TAB Medication indication: ED Medical history relevant to this request: Pt with ED who has tried/failed therapy with formulary preferred sildenafil at max recommended doses. Alternative PDE5 inhibitor therapy is appropriate. Usual dosing: -- 10 mg at least 30 minutes prior to anticipated sexual activity as one single dose and not more than once daily -- Dose may be adjusted based on tolerability -- Dosing range: 5 to 20 mg PRN The request is approvedFOR PRN USE ONLY - A documented therapeutic failure of the preferred formulary alternative(s) exists Comment: sildenafil 100 mg - No formulary-preferred alternative /caroline/ RADHA VALENTINE CLINICAL LOCOMOTIVE ENGINEER DIESEL Signed: 12/21/2023 07:59 Receipt Acknowledged By: 12/21/2023 14:52 /caroline/ YUNIER OLIVAREZ CC Glue Size Machine Operator RADHA VALENTINE
--- OUTSIDE RECORDS SUMMARY | 2024-02-16 11:05 | XMS_ITS ---
Author Name [facility] [place] [facility] [place] [facility] [place] Address [address] [place] [id number] Care Team Providers Care Drafting Teacher Name Role Phone MADISON WRIGHT Primary Care [...] section includes the information on record at [place] for the Encounter. Date/Time Encounter Type Encounter Description Reason Pro vider Source Jan 23, 2024 04:15 PM [facility] Encounter Template Text not used by [place] Plan of Treatment: Future Appointments (+ 6 months) and Future Tests (+/- 45 days) The Plan of Treatment section includes future care activities for the patient from all [place] treatmentfacilities. This section includes future appointments and future orders which are active, pending or scheduled. Future Appointments This section includes appointments that were scheduled to occur 6 months from the date of the Encounter, up to a maximum of 20 appointments. The data comes from all [place] treatment facilities. Appointment Date/Time Appointment Type Appointme nt Facility Name Feb 26, 2024 03:00 PM AM[facility]ULATORY [facility] Apr 05, 2024 09:00 AM AMBULATORY [place] MEDICINE [place] [facility] [place] [facility] Apr 19, 2024 09:00 AM AMBULATORY - PS[facility]CHIATRY [facility] [place] [facility] Apr 19, 2024 09:00 AM [place] [facility] Encounter Notes: All associated encounter notes This section contains the clinical notes associated to the Encounter. Date/Time Encounter Note(s) Provider Source Jan 23, 2024 04:15 PM MENTAL HEALTH NOTE : LOCAL TITLE: [facility] CC ASSIGNMENT STANDARD TITLE: MENTAL HEALTH NOTE DATE OF NOTE: JAN 23, 2024@16:15 ENTRY DATE: JAN 23, 2024@16:15:38 AUTHOR: TITA HERNANDEZ COSIGNER: URGENCY: STATUS: COMPLETED Mental Health Foot Setter Assignment Initial Assignment The name of the 's new Mental Health Foot Setter (MHTC) is: MHTC Name: Tita Hernandez TC Contact Information: [phone] This note documents the INITIAL ASSIGNMENT of the Veterans' Mental Health Foot Setter (MHTC) on Dec. The assignment of the MHTC and information about the role of the MHTC in the 's mental health care was discussed with the who verbally concurred with the INITIAL ASSIGNMENT. The MHTC's contact information was provided to the in writing or verbally with encouragement to the to document in writing. /caroline/ TITA HERNANDEZ Registered Nurse Signed: 01/23/2024 16:15 TITA HERNANDEZ
--- OUTSIDE RECORDS SUMMARY | 2024-02-16 11:05 | XMS_ITS | Encounter Summary ---
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 Date/Time Primary/Secondary Diagnosis Diagnosis Name Provider Source Aug 17, 2023 12:18 PM PRIMARY Male erectile dysfunction, unspecified MADISON HEBERT Aug 17, 2023 12:18 PM SECONDARY Contact with and exposure to other hazardous substances MADISON HEBERT Aug 17, 2023 12:18 PM SECONDARY Hypertrophy of breast MADISON HEBERT Aug 17, 2023 12:18 PM SECONDARY Low back pain, unspecified MADISON HEBERT [place] Aug 17, 2023 12:18 PM SECONDARY Major depressive disorder, recurrent, moderate MADISON HEBERT [place] Plan of Treatment: Future Appointments (+ 6 months) and Future Tests (+/- 45 days) The Plan of Treatment section includes future care activities for the patient from all [place] treatmentfacilities. This section includes future appointments and future orders which are active, pending or scheduled. Future Appointments This section includes appointments that were scheduled to occur 6 months from the date of the Encounter, up to a maximum of 20 appointments. The data comes from all [place] treatment facilities. Appointment Date/Time Appointment Type Appointme nt Facility Name Sep 04, 2023 09:00 AM AMBULATORY - PSYCHIATRY [facility] Oct 19, 2023 10:00 [facility] Dec 19, 2023 09:30 AM AMBULATORY - MEDICINE [place] [facility] [place] Active, Pending, and Scheduled Orders This section includes a listing of several types of active, pending, and scheduled orders, including clinic medications orders, diagnostic test orders, procedure orders and consult orders; where the start date of the order is 45 days before the date of the Encounter or 45 days after the date of theEncounter. The data comes from all [place] treatment [facility]. Test Date/Time Test Type Test Details Facility Name Aug 17, 2023 10:15 AM Consult Order COMMUNITY CARE-DERMATOLOG[facility] Sep 04, 2023 12:20 PM Consult Order [facility] Sep 04, [facility]23 12:20 PM Consult Order VISN 1 [facility] OUTPT [facility] Lab Results: +/- 30 days of the encounter This section includes the Chemistry and Hematology Lab Results on record with [place] for the patient. Radiology Reports and Pathology Reports are provided separately, in subsequent sections. Lab Results This section contains the Chemistry/Hematology Results that were resulted 30 days before or 30 daysafter the date of the Encounter. Date/Time Source Result Type Result - Unit Interpretation Reference Range Comment Aug 17, 2023 10:11 AM [place] HEPATITIS B SURFACE ANTIGEN (HBsAg)- Specimen Type: [...] Aug 17, 2023 10:07 AM Reporting Lab: [facility] [address] [facility] [address] Performing Lab: [facility]RL.[facility]N [facility]PITALUSETS [facility] [address] [facility] [address] HBsAg Non Reactive Non Reactive Aug 17, 2023 10:11 AM [place] HEPATITIS B SURFACE ANTIBODY (HBsAb)- Specimen Type: SERUM Comment: Hemolysis present analysis cannot be performed. Hemolysis present may falsly elevate Potassium Total and Direct Bili, Iron, AST, %Fe. Ordering Provider: MADISON HEBERT Report Released Date/Time: Aug 17, 2023 10:07 AM Reporting Lab: [facility] [address] [facility] [address] Performing Lab: [facility] [address] [facility] [address] HBsAb REACTIVE Non Reactive Aug 17, 2023 10:11 AM [place] TESTOSTERONE, TOTAL (WHV) Specimen Type: SERUM No comment entered. Ordering Provider: MADISON HEBERT Report Released Date/Time: Aug 17, 2023 10:07 AM Reporting Lab: [facility] [address] [facility] [address] Performing Lab: [facility]N [facility] [address] [facility] [address] TESTOSTERONE, TOTAL (V) 412.10 ng/dL 220.00-892.0 0 Aug 17, 2023 10:11 AM [place] CALCIUM Specimen Type: SERUM Comment: Hemolysis present analysis cannot be performed. Hemolysis present may falsly elevate Potassium Total and Direct Bili, Iron, AST, %Fe. Ordering Provider: MADISON HEBERT Report Released Date/Time: Aug 17, 2023 10:07 AM Reporting Lab: [facility]OSPITALRCENTRAL ALAB[facility]–TUSKEGEETRN [facility]ITALUSETS [facility] [address] [facility] [address] Performing Lab: [facility]ITALUSE[address] [address] CALCIUM 8.8 mg/dL 8.5-10.2 Aug 17, 2023 10:11 AM [place] MAGNESIUM Specimen Type: SERUM Comment: Hemolysis present analysis cannot be performed. Hemolysis present may falsly elevate Potassium Total and Direct Bili, Iron, AST, %Fe. Ordering Provider: MADISON HEBERT Report Released Date/Time: Aug 17, 2023 10:07 AM Reporting Lab: [address] [address] Performing Lab: [address] [address] MAGNESIUM 2.0 mg/dL 1.6-2.6 Aug 17, 2023 10:11 AM [place] HEMOGLOBIN A1C PANEL Specimen Type: BLOOD Comment: [...] Aug 17, 2023 10:07 AM Reporting Lab: [address] [address] Performing Lab: [address] [address] HEMOGLOBIN A1C 5.0 4.0-5.6 Aug 17, 2023 10:11 AM [place] TSH Specimen Type: SERUM Comment: Hemolysis present analysis cannot be performed. Hemolysis present may falsly elevate Potassium Total and Direct Bili, Iron, AST, %Fe. Ordering Provider: MADISON HEBERT Report Released Date/Time: Aug 17, 2023 10:07 AM Reporting Lab: [address] [address] Performing Lab: [address] [address] TSH 2.19 u[IU]/mL 0.35-5.00 Aug 17, 2023 10:11 AM [place] CBC AND DIFF (AUTO) Specimen Type: BLOOD No comment entered. Ordering Provider: MADISON HEBERT Report Released Date/Time: Aug 17, 2023 10:07 AM Reporting Lab: [facility]ITALRL TRN [facility]ITALTS [facility] [address] [facility] [address] Performing Lab: [place] CNTRCENTRAL [facility]–TUSKEGEETRN [facility] [address] [facility] [address] WBC 6.79 10*3/uL 4.50-11.00 RBC 5.04 10*6/uL [...] 10*3/uL 0.00-0.00 Aug 17, 2023 10:11 AM [place] MICROALBUMIN CREATININE RATIO PANEL [facility] cimen Type: URINE No comment entered. Ordering Provider: MADISON HEBERT Report Released Date/Time: Aug 17, 2023 10:07 AM Reporting Lab: [facility]ITALRL.V. [facility]ITALN [facility] [address] [facility] [address] Performing Lab: [facility] [address] [address] MICROALBUMIN/C REATININE RATIO 3.7 mg/g 0-29.9 MICROALBUMIN,Q UANTITATIVE 1.0 mg/dL RR UNAVAIL CREATININE URINE 267.12 mg/dL Aug 17, 2023 10:11 AM [place] URINALYSIS Specimen Type: URINE Comment: If Glucose = >500 and Ketones are positive, please alert the Physician. Ordering Provider: MADISON HEBERT Report Released Date/Time: Aug 17, 2023 10:07 AM Reporting Lab: [facility] [address] [facility] [address] Performing Lab: [address] [address] UA COLOR Yellow Yellow UA APPEARANCE Clear Clear UA GLUCOSE NEGATIVE mg/dL Negative UA KETONES NEGATIVE mg/dL Negative UA BLOOD NEGATIVE mg/dL Negative UA PROTEIN NEGATIVE mg/dL Negative UA NITRITE NEGATIVE mg/dL Negative UA BILIRUBIN NEGATIVE mg/dL Negative UA SPECIFIC GRAVITY 1.037 H 1.016-1.022 UA pH 6.0 5.0-9.0 UA UROBILINOGEN <2.0 mg/dL <2.0 UA LEUKOCYTE NEGATIVE Negative Aug 17, 2023 10:11 AM [place] HEPATITIS C ANTIBODY (HCV)-ARC Specimen Type: SERUM Comment: Hep C Ab: No HCV antibody detected. If recent infection is suspected or other evidence suggests HCV infection, consider HCV nucleic acid testing Ordering Provider: MADISON HEBERT Report Released Date/Time: Aug 17, 2023 10:07 AM Reporting Lab: [address] [address] Performing Lab: [address] [address] HEPATITIS C ANTIBODY NON-REACTIVE NON-REACTIVE Aug 17, 2023 10:11 AM [place] HIV 1&2 Ag/Ab SCREEN Specimen Type: SERUM No comment entered. Ordering Provider: MADISON HEBERT Report Released Date/Time: Aug 17, 2023 10:07 AM Reporting Lab: [address] [address] Performing Lab: [address] [address] HIV 1&2 Ag/Ab SCREEN NON-REACTIVE Nonreactive Aug 17, 2023 10:11 AM [place] BASIC METABOLIC PANEL (non-fasting) Spe cimen Type: SERUM Comment: Hemolysis present analysis cannot be performed. Hemolysis present may falsly elevate Potassium Total and Direct Bili, Iron, AST, %Fe. Ordering Provider: MADISON HEBERT Report Released Date/Time: Aug 17, 2023 10:07 AM Reporting Lab: [address] [address] Performing Lab: [address] [address] UREA NITROGEN 21 mg/dL 7-25 GLUCOSE 82 mg/dL 65-100 SODIUM 139 mmol/L 135-145 POTASSIUM 4.3 mmol/L 3.5-5.0 CHLORIDE 105 mmol/L 100-110 CO2 24 meq/L 20-30 CREATININE, Serum 1.13 mg/dL 0.50-1.40 eGFR(CKD-EPI 2020) 85 mL/min >60 Aug 17, 2023 10:11 AM [place] LIVER FUNCTION Specimen Type: SERUM Comment: Hemolysis present analysis cannot be performed. Hemolysis present may falsly elevate Potassium Total and Direct Bili, Iron, AST, %Fe. Ordering Provider: MADISON HEBERT Report Released Date/Time: Aug 17, 2023 10:07 AM Reporting Lab: [facility] [address] [facility] [address] Performing Lab: [address] [address] PROTEIN,TOTAL 7.0 g/dL 6.0-8.3 ALBUMIN 4.0 g/dL 3.5-5.0 ALKALINE PHOSPHATASE 55 U/L 40-150 AST 35 U/L H 5-34 ALT 27 U/L BILIRUBIN, TOTAL comment mg/dL 0.2-1.2 Aug 17, 2023 10:11 AM [place] LIPID PANEL, NON FASTING Specimen Type: SERUM Comment: Hemolysis present analysis cannot be performed. Hemolysis present may falsly elevate Potassium Total and Direct Bili, Iron, AST, %Fe. Ordering Provider: MADISON HEBERT Report Released Date/Time: Aug 17, 2023 10:07 AM Reporting Lab: [address] [address] Performing Lab: [address] [address] CHOLESTEROL 132 mg/dL TRIGLYCERIDE 85 mg/dL 0-150 LDL calculated 74 mg/dL 0-129 CHOL/HDL 3.2 HDL CHOLESTEROL 41 mg/dL 40-60 Aug 17, 2023 10:11 AM [place] VITAMIN D (25-OH) Specimen Type: SERUM Comment: Hemolysis present analysis cannot be performed. Hemolysis present may falsly elevate Potassium Total and Direct Bili, Iron, AST, %Fe. Ordering Provider: MADISON HEBERT Report Released Date/Time: Aug 17, 2023 10:07 AM Reporting Lab: [address] [address] Performing Lab: [address] [address] VITAMIN D (25-OH) 56 ng/mL H 20-50 Aug 17, 2023 10:11 AM [place] VITAMIN B12 Specimen Type: SERUM Comment: Hemolysis present analysis cannot be performed. Hemolysis present may falsly elevate Potassium Total and Direct Bili, Iron, AST, %Fe. Ordering Provider: MADISON HEBERT Report Released Date/Time: Aug 17, 2023 10:07 AM Reporting Lab: [address] [address] Performing Lab: [address] [address] VITAMIN B12 comment pg/mL 200-900 Vital Signs: All taken on the encounter date This section contains inpatient and outpatient Vital Signs collected on the date of the Encounter. Date/Time Temperature Pulse Blood Pressure Respiratory Rate SP02 Pain Height Weight Body Mass Index Source Aug 17, 2023 08:57 AM 97.4 84 112/68 16 98 5 76 280 34 [facility] IE Social History: Smoking Status (Most current) and [...] Ema mensah Aug 17, 2023 09:00 AM VA-TOBACCO NEVER USED [place] Encounter Notes: All associated encounter notes This section contains the clinical notes associated to the Encounter. Date/Time Encounter Note(s) Provider Source Aug 17, 2023 10:15 AM PRIMARY CARE NURSE PRACTITIONER OUTPATIENT NOTE: LOCAL TITLE: NURSE PRACTITIONER OUTPATIENT NOTE STANDARD TITLE: PRIMARY CARE NURSE PRACTITIONER OUTPATIENT NOTE DATE OF NOTE: AUG 17, 2023@10:15 ENTRY DATE: AUG 17, 2023@10:15:17 AUTHOR: MADISON HEBERT COSIGNER: URGENCY: STATUS: COMPLETED PRIMARY CARE VISIT BRUNO STAS HANCOCK, is a 37 yo WHITE MALE who presents at the [place] [facility]. TYPE OF VISIT: Face to face 36-year-old male currently serving in the [employer] with chronic low back pain, MDD, gynecomastia status postsurgical repair, and COVID-19 in 2019 not requiring hospitalization presented to the outpatient clinic to establish care. He is currently comanaged with a community PCP but plans [facility] all [facility]. 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 Subsequent to exposure, he developed gynecomastia. Extensive work-up found no etiology and, ultimately gynecomastia was surgically repaired. He sees a chiropractor regularly for chronic low back pain and to dermatology for annual skin check for multiple moles on his back. Primary complaint today is depression (no SI/HI) and ED. He was started on citalopram 20 mg daily about a year ago and has seen very little improvement in his depressed mood. Regarding the ED, he has difficulty achieving and maintaining an erection. He describes a great deal of performance anxiety. No recent labs or diagnostic studies to review. All medications were reconciled during this visit. HEALTHCARE PROVIDERS: Community PCP: Dr. Santiago Chiropractor: Claire in [place] Derm: [place] [facility] Social Hx: Recently and living with his parents currently. He has never smoked. Drinks alcohol occasionally but not to excess. No MJ or other substances. 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 He gets regular exercise daily at the gym lifting weights and aerobics. Family history: Father: Recently passed at age 65. DM, CAD, alcohol abuse, illicit drug abuse. Mother: Alive at age 65. Multiple sclerosis. Paternal grandfather: Diabetes A brother and a sister with no known medical problems. HISTORY: PERIOD OF SERVICE - [facility] [employer] FROM Mar TO Mar COMBAT SERVICE INDICATED: No VITAL SIGNS: Temperature 97.4 F [36.3 C] [...] the extremities, or unilateral weakness. EXAMINATION General: Well-developed in no obvious distress. Mental Status: Alert and oriented x4. Head: Normocephalic. Atraumatic. Eyes: PERRLA. EOMI. Anicteric sclerae. ENT: Moist oral mucosa. Posterior pharynx unremarkable Good dentition. Neck: Supple. No JVD. No LAD. No thyromegaly. No bruit. Lungs: CTA. Normal chest excursion. Eupneic respirations. CV: Heart tones S1, S2. RRR. No M/G/R. No peripheral edema GI: Abdomen is soft and nontender. No HSM. : No CVA tenderness. Ext: No cyanosis or clubbing. No gross deformities. Neuro: CN II through XII grossly intact. Normal speech. Normal gait. Reflexes are normal. Integument: Skin warm and dry. Scattered moles over entire back and a few skin tags. No concerning lesions or rashes. Large surgical scar across chest, well-healed. Psych: Depressed mood; flat affect. Normal judgment. ALLERGIES: ========= Patient has answered NKA >> HEALTH MAINTENANCE PREVENTIVE MEDICINE GOALS Advance Directive Screen MH AD DUE NOW Toxic Exposure Screening Follow-Up DUE NOW Depression Screening DUE NOW Follow-Up Pos PTSD/Depression DUE NOW Hepatitis B Serology/Immunization DUE NOW Hepatitis C Testing DUE NOW HIV Screening DUE NOW Lipid Screening DUE NOW Primary Care Provider Search DUE NOW Influenza Immunization DUE NOW Medication Reconciliation DUE NOW COVID-19 Immunization DUE NOW Tdap Immunization DUE NOW (Optional) Whole Health Documentation DUE NOW ASSESSMENT/PLAN: 1. Chronic low back pain: Uses ibuprofen for modest relief. Back spasms frequently disturb his sleep. Exam benign. He does see a chiropractor on a regular basis which helps his symptoms. Agrees to a short trial of cyclobenzaprine as needed for bedtime use. Advised to continue ibuprofen and add acetaminophen. Cautioned about use of muscle relaxer during the daytime when he may need to drive. No use of heavy equipment, lawnmowers, chainsaws etc. while using cyclobenzaprine. He voiced understanding. Chiropractic referral. 2. Major depressive disorder: Persistent depression despite a year of therapy with citalopram 20 mg. Denies SI/HI. Informs of recent divorce that has exacerbated his underlying depression. No concomitant psychotherapy or group therapy. May need an increase in dose or different medication. I do recommend added individual or group therapy as well. Mental health referral placed. He is requesting Dr. Solorio. 3. Erectile dysfunction: Difficulty in maintaining an erection. Voices a a great deal of concern about performance anxiety which he feels may also be attributing to his depression and ED. Check total testosterone level. Trial of sildenafil 50 mg as needed. Reviewed potential side effects in detail. He voiced understanding. FOLLOW UP: RTC Below & sooner PRN UPCOMING APPOINTMENTS: No data available 70 minutes spent in patient evaluation, data review, and patient education. All medications were reconciled during this visit. No barriers; Patient understands and agrees to current treatment plan. If pt has any questions, concerns, or changes in current health status he/she will call or come [facility] to the [facility]. 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 Concern: Gynecomastia. Exposure to heavy metals in burn pits The following connections were provided to the Smoaks/caregiver: Consult/Referral to Registry Program Consult/Referral to Toxic Exposure Screening (RACHEL) navigator. /caroline/ MADISON HEBERT NP NURSE PRACTITIONER Signed: 08/17/2023 12:16 MADISON HEBERT [place] Aug 17, 2023 08:58 AM PREVENTIVE MEDICIN E NURSING NOTE: LOCAL TITLE: CLINICAL REMINDERS/NURSING STANDARD TITLE: PREVENTIVE MEDICINE NURSING NOTE DATE OF NOTE: AUG 17, 2023@08:58 ENTRY DATE: AUG 17, 2023@08:58:59 AUTHOR: JACKELYN TAVERAS EXP COSIGNER: URGENCY: STATUS: COMPLETED The [place] was given an advanced directive to complete on his own. Suicide Screen: C-SSRS Screening [place] Suicide Severity Rating Scale (C-SSRS) screener 1. Over the past month, have you wished you were or wished you could go to sleep and not wake up? No 2. Over the past month, have you had any actual thoughts of killing yourself? No 3. Over the past month, have you been thinking about how you might do this? Response not required due to responses to other questions. 4. Over the past month, have you had these thoughts and had some intention of acting on them? Response not required due to responses to other questions. 5. Over the past month, have you started to work out or worked out the details of how to kill yourself? Response not required due to responses to other questions. 6. If yes, at any time in the past month did you intend to carry out this plan? Response not required due to responses to other questions. 7. In your lifetime, have you ever done anything, started to do anything, or prepared to do anything to end your life (for example, collected pills, obtained a gun, gave away valuables, went to the roof but didn't jump)? No 8. If YES, was this within the past 3 months? Response not required due to responses to other questions. 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 No questions at this time Smoaks/caregiver was informed of local points of contact. Contact information for local resources: Benefits/Claim for Disability Compensation Questions:National VBA [place] Healthcare Enrollment: [facility] Eligibility direct dialed at [phone] Registry: [facility] Health Coordinator ext [phone] Toxic Exposure Screening Follow-Up reminder is needed. Name of person notified: Madison Hebert BMI>30/>24.99 High Risk: At this visit, the health risks of obesity were reviewed and discussed with the , and the benefits of a weight management treatment program, such as [facility]! was discussed and offered to the [place]. After discussing the health risks of being overweight or obese and providing information about available weight management treatment, and offering a referral to [facility] or another weight management treatment program outside the [facility], the patient DECLINES REFERRAL to [facility] or any other weight management treatment program at this time. Homelessness/Food Insecurity Screen: In the past 2 months, have you been living in stable housing that you own, rent, or stay in as part of a household? Yes - Living in stable housing. Are you worried or concerned that in the next 2 months you may NOT have stable housing that you own, rent, or stay in as part of a household? No - Not worried about housing near future The Smoaks reports the following: Within the past 12 months, you worried whether your food would run out before you got money to buy more. Never true Within the past 12 months, the food you bought just didn't last and you didn't have money to get more. Never true Screen for Embedded Fragments: SCREEN FOR EMBEDDED FRAGMENTS The patient reports no embedded fragments. MST Screening: Patient denies experiencing sexual trauma (MST). Preferred Language: What is your, or your caregiver's preferred language for healthcare? Preferred Language: Ethiopian PTSD Screening: PC-PTSD-5 A PTSD screening test (PC-PTSD-5) was positive (score=5). IN THE PAST MONTH, have you ever had any experience that was so frightening, horrible or traumatic. For example: A serious accident or fire a physical or sexual assault or abuse An earthquake or flood A war Seeing someone be killed or seriously injured Having a loved one through homicide or suicide 1. Have you ever experienced this kind of event? YES 2. Had nightmares about the event(s) or thought about the event(s) when you did not want to? YES 3. Tried hard not to think about the event(s) or went out of your way to avoid situations that reminded you of the event(s)? YES 4. Been constantly on guard, watchful, or easily startled? YES 5. [place] numb or detached from people, activities, or your surroundings? YES 6. [place] guilty or unable to stop blaming yourself or others for the event(s) or any problems the event(s) may have caused? YES Licensed Independent Provider notified of positive screen and need for follow-up. 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 The [place] has not already been diagnosed as having TBI during post 11/07 deployment. 1. The [place] experienced the following events during deployment: Patient denies experiencing any TBI related events during deployment. Negative Screen Tobacco Use Screening: The patient has never used tobacco. The med rec will be completed by the PCP. Alcohol Use Screen (AUDIT-C): Alcohol Screen: SCREEN FOR ALCOHOL (AUDIT-C) An alcohol screening test (AUDIT-C) was negative (score=3). 1. How often did you have a drink containing alcohol in the past year? Consider a drink to be a 12 ounce can or bottle of regular beer, 8 ounces of malt liquor, a 5 ounce glass of table wine, or a 1.5 ounce shot of liquor (like scotch, gin, or vodka). Two to three times per week 2. How many drinks containing alcohol did you have on a typical day when you were drinking in the past year? One or two drinks 3. How often did you have six or more drinks on one occasion in the past year? Never Sexual Orientation: The patient thinks of their sexual orientation as: Straight or Heterosexual RHS Screen: RHS Screen Environmental Check Upon inquiry, the individual reports that the environment is safe to proceed. Informed Consent to Screen and Document The individual consents to proceed with screening. The individual consents to documentation of responses. PRIMARY SCREEN: In the past 12 months, how often did a current or former intimate partner (e.g., boyfriend, girlfriend, , , sexual partner): 1. Scream or curse at you Never 2. Insult or talk down to you Never 3. Threaten you with harm Never 4. Physically hurt you Never 5. Force or pressure you to have sexual contact against your will, or when you were unable to say no Never ?? The HITS tool (items 1-4 above) is US copyright protected by Daniel Appiah MD, and the user has full rights to use it throughout the [place] system. PRIMARY SCREEN RESULT: The Primary Screen is NEGATIVE. The individual answered never to all forms of IPV above (i.e., answered never to all 5 items) The individual accepts education and/or resources: Yes - Offered verbal universal education about IPV EDUCATION: The individual indicated readiness to learn. Education offered during this session as noted above. The individual indicated understanding by asking relevant questions and making appropriate comments. No barriers to learning were observed or identified. /caroline/ JACKELYN TAVERAS LPN LICENSED PRACTICAL NURSE Signed: 08/17/2023 09:13 JACKELYN TAVERAS [facility]
--- OUTSIDE RECORDS SUMMARY | 2024-02-16 11:05 | XMS_ITS | Encounter Summary ---
Author Name [facility] [place] Address [address] [place] [id number] Care Team Providers Care Electronic Health Records Specialist Name Role Phone MADISON WRIGHT Primary Care [...] section includes the information on record at [place] for the Encounter. Date/Time Encounter Type Encounter Description Reason Pro vider Source Feb 01, 2024 12:10 PM Outpatient Encounter ADMIN PAT ACTIVTIES (MASNONCT) IHE Encounter Template Text not used by [place] Plan of Treatment: Future Appointments (+ 6 months) and Future Tests (+/- 45 days) The Plan of Treatment section includes future care activities for the patient from all [place] treatmentfacilities. This section includes future appointments and future orders which are active, pending or scheduled. Future Appointments This section includes appointments that were scheduled to occur 6 months from the date of the Encounter, up to a maximum of 20 appointments. The data comes from all [place] treatment facilities. Appointment Date/Time Appointment Type Appointme nt Facility Name Feb 26, 2024 03:00 PM AMBULATORY - MEDICINE [facility] Apr 05, 2024 09:00 AM AM[place]UL[facility]ORY [place] [facility] Apr 19, 2024 09:00 AM AMBULATORY - [place] [facility] Apr 19, 2024 09:00 AM AM[place]ORY [place] [facility]
--- OUTSIDE RECORDS SUMMARY | 2024-02-16 11:06 | XMS_ITS | Encounter Summary ---
Author Name [place] Address [address] [place] [id number] Care Team Providers Care Damper Worker Name Role Phone MADISON WRIGHT [facility] Insurance Providers: All historical and [...] section includes the information on record at [place] for the Encounter. Date/Time Encounter Type Encounter Description Reason Provider Source Feb 01, 2024 12:11 PM Outpatient Encounter TELEPHONE ICD-10-CM F32.9 Major depressive disorder, single episode, unspecified NAPOLEONE,JESSIKA NIFER E IHE Encounter Template Text not used by [place] Assessments - Encounter Diagnoses This section includes the primary and secondary diagnoses documented for the Encounter. Date/Time Primary/Secondary Diagnosis Diagnosis Name Provider Source Feb 01, 2024 12:11 PM PRIMARY Major depressive disorder, single episode, unspecified NAPOLEONE,INGE [facility]ER [facility] [place] [facility] Plan of Treatment: Future Appointments (+ 6 months) and Future Tests (+/- 45 days) The Plan of Treatment section includes future care activities for the patient from all [place] treatmentfacilities. This section includes future appointments and future orders which are active, pending or scheduled. Future Appointments This section includes appointments that were scheduled to occur 6 months from the date of the Encounter, up to a maximum of 20 appointments. The data comes from all [place] treatment facilities. Appointment Date/Time Appointment Type Appointme nt Facility Name Feb 26, 2024 03:00 PM [facility] Apr 05, 2024 09:00 AM [facility] [place] [facility] [place] [place] [facility] Apr 19, 2024 09:00 AM [facility] [place] [facility] Apr 19, 2024 09:00 AM [facility] Encounter Notes: All associated encounter notes This section contains the clinical notes associated to the Encounter. Date/Time Encounter Note(s) Provider Source Feb 01, 2024 12:11 PM NURSING NOTE: LOCAL TITLE: RODOLFO TERRIE RN CARE COORDINATION NOTE STANDARD TITLE: NURSING NOTE DATE OF NOTE: FEB 01, 2024@12:11 ENTRY DATE: FEB 01, 2024@12:11:04 AUTHOR: EVA SALGUERO EXP COSIGNER: URGENCY: STATUS: COMPLETED Clinical services provided by Eva Salguero, Mental Health Nurse Building Services Technician via [facility] from the [facility] ([place]) to the [place]'s remote site located in the [facility]. Clinical Service Provided: Care Coordination Service Delivery Method: Telephone Length of Service: 11 minutes Provisional Diagnosis (Per chart): MDD 's ID was verified by full name and date of . ASSESSMENT: Expansion Joint Finisher contacted to offer mental health medication management through the [facility] ([facility]). [place] reports they are agreeable to care with the [facility] at this time. is currently VVC capable. VVC test call offered and declined by the [place]. Telephone number and email address confirmed. [place] did not report or give indications of being in acute distress or crisis that would suggest the need for additional same-day intervention. EDUCATION PROVIDED: Confirmed that the [place] has the following information: Veterans Crisis Line - 988 press 1 at prompt or 911 for any medical or mental health emergencies. PLAN: - agrees to meet with [facility] prescriber. [facility] team [facility] Psychiatry Outpt [address]. [facility] medical office scheduler will reach out to the to schedule VVC/CVT appointment with [facility] prescriber. [facility] number provided if questions or concerns arise, . [place] verbalized understanding and agreement to plan. /caroline/ EVA SALGUERO DNP, RN, MEDICAL OFFICE PROFESSIONAL INSTRUCTOR VISN 01 [facility] Mental Health Nurse Building Services Technician Signed: 02/01/2024 12:16 EVA SALGUERO [place] [facility]
--- OUTSIDE RECORDS SUMMARY | 2024-02-16 11:06 | XMS_ITS ---
Author Name [facility] Organization Unknown Problems Problem Status Onset Date Problem Type Date of Resoluti on Source Chronic sinusitis, unspecified active EncounterDiagnosisAct CTMDSX H
== END 2024-02-16 12:00 | disposition home or self-care (01) ==
PROVIDERS: PCP Family Medicine; Visit Provider Family Medicine
DX: F41.8 Other specified anxiety disorders (principal); F43.10 Post-traumatic stress disorder, unspecified

== ENCOUNTER → 2024-02-16 10:43 | Outpatient (BNVA) | payer OTHER, SELFPAY | PROVIDERS: PCP Family Medicine; Visit Provider Family Medicine | DX: F41.8 Other specified anxiety disorders (principal); F43.10 Post-traumatic stress disorder, unspecified | CPT/HCPCS: 99212 ==

== ENCOUNTER 2024-02-19 07:48 | Outpatient (REF) | payer OTHER, SELFPAY ==
[2024-02-19 11:21] LABS: Appearance Urine Clear; Color Urine Yellow; Glucose Urine UA Negative (Negative); Leukocyte Esterase Urine Negative (Negative); Nitrite Urine Negative (Negative); PH 5.5 (5.0-9.0); Specific Gravity - Urine >= 1.030 (1.005-1.025); Urine Blood Negative (Negative); Urine Ketones Negative (Negative); Urine Protein Negative (Neg-Trace)
[2024-02-19 11:21] LABS: MANUAL DIFF FLAG NO
[2024-02-19 11:32] LABS: Basophils Absolute Auto 0.1 X10*3/uL (0.0-0.2); Basophils Percent Auto 0.8 % (0-2); Eosinophils Absolute Auto 0.4 X10*3/uL (0.0-0.4); Hematocrit 46.1 % (42.0-52.0); Hemoglobin 15.7 g/dl (14.0-18.0); Imm Gran Abs Auto 0.02 X10*3/uL (0.00-0.03); Imm Gran Pct Auto 0.3 % (0.0-0.4); Lymphocytes Absolute Auto 2.8 X10*3/uL (1.2-4.9); Lymphocytes Percent Auto 39.1 % (20-40); Mean Corpuscular HGB Conc 34.1 g/dl (31.0-36.0); Mean Corpuscular Hemoglobin 30.6 pg (27.0-33.0); Mean Corpuscular Volume 89.9 fL (80.0-98.0); Mean Platelet Volume 10.2 fL (9.4-12.4); Monocytes Absolute Auto 0.6 X10*3/uL (0.1-1.2); Monocytes Percent Auto 8.9 % (2-11); Neutrophils Absolute Auto 3.3 x10*3/uL (2.0-8.3); Neutrophils Percent Auto 45.9 % (45-73); Platelet Count 326 X10*3/uL (160-400); Red Blood Count 5.13 X10*6/uL (4.60-5.80); Red Cell Distribution Width 13.2 % (11.0-16.0); White Blood Count 7.2 X10*3/uL (4.8-10.8)
[2024-02-19 12:17] LABS: Albumin Level 4.5 g/dL (3.5-5.0); Alkaline Phosphatase 58 U/L (39-117); Anion Gap 8 (12-20); Aspartate Amino Transferase 32 U/L (5-37); Bilirubin Total 0.8 mg/dL (0.0-1.0); Blood Urea Nitrogen 23 mg/dL (9-16); Calcium 9.2 mg/dL (8.4-10.2); Carbon Dioxide 30 mmol/L (22-29); Chloride 106 mmol/L (96-108); Cholesterol 136 mg/dL (<200); Estimated Glomerular Filt Rate > 60; Glucose Fasting 98 mg/dL (60-99); HDL Cholesterol 47 mg/dL (>40); LDL Cholesterol Calculated 80 mg/dL (<100); Potassium 4.2 mmol/L (3.3-5.1); Sodium 140 mmol/L (135-145); Total Protein 7.4 g/dL (6.5-8.0); Triglycerides 47 mg/dL (<150)
[2024-02-19 12:18] LABS: Creatinine Urine 244.17 mg/dL; Microalbum/Creatinine Ratio Ur 3.6 ug/mg cr (<30)
[2024-02-19 13:48] LABS: TSH reflex Free T4 2.78 uIU/mL (0.32-4.0)
[2024-02-19 14:50] LABS: Alanine Aminotransferase 38 U/L (0-40)
== END 2024-02-19 07:49 | disposition home or self-care (01) ==
LOC: HO.WFDLDS 07:48
PROVIDERS: Visit Provider Family Medicine
DX: Z00.00 Encounter for general adult medical examination without abnormal findings (principal); I10 Essential (primary) hypertension
CPT/HCPCS: 36415; 80053; 80061; 81003; 82043; 82570; 84443; 85025

== ENCOUNTER → 2024-04-03 11:43 | Outpatient (BNVA) | payer OTHER, SELFPAY | PROVIDERS: PCP Family Medicine; Visit Provider Family Medicine | DX: F41.8 Other specified anxiety disorders (principal) | CPT/HCPCS: 96127; 99212 ==

== ENCOUNTER 2024-04-19 12:58 | Outpatient (AMB) | payer OTHER, SELFPAY ==
--- NOTE | 2024-04-19 13:10 | MHC.OFFWIV ---
Intake Vital Signs 04/19/24 13:12 Weight 287 lb BP 110/80 Blood Pressure Location Lt brachial Position Sitting Pulse 80 Pulse Source Pulse Oximeter Pulse Oximetry (%) 98 Oxygen Delivery Method Room Air Intake Visit Reasons: EP STD testing Intake Note: Patient here for rash on head of penis and small spots on shaft area that has been present for about 1 week. Denies any itching or burning. pt states the female he has been seeing had a yeast infection and unsure if that may have done anything. Patient Tobacco Use Status: Never used Tobacco Allergies No Known Allergies Allergy (Verified 04/19/24 13:12) Do you need a note to return to daycare/school/sports/work: No HPI HPI Comments History of Present Illness Details History of Present Illness - The patient is a 38-year-old male presenting with skin irritation in on the head of the penis. - Symptoms began after using a new brand of condoms, which the patient does not have a history of using. - The irritation is noted in spots covered by the condom; there are no additional symptoms such as discharge, pain, or fever. - Denies urinary changes or symptoms or blood in urine. - Past treatment involved clotrimazole cream for one week without improvement. - The patient does have a history suggesting allergies, eczema, or similar dermatological issues. - Declined roller mechanic for exam Physical Exam General: Cooperative, healthy appearing, comfortable, no acute distress and well developed Orientation: Patient oriented x3 Limitations: No limitations Head: Normal to inspection Ears: Hearing grossly normal bilaterally Nose: Normal external nose present Face and sinus: Normal facial exam Eyes: Appearance normal, both eyes and all related structures Neck: Normal visual inspection and Yes full ROM Respiratory: Normal respiratory effort and able to speak in complete sentences. : inferior area of glans penis, 0.2cm area of slightly raised erythema, no laceration, warmth, weeping, ecchymosis, no fluid-filled vesicles, no crusted dry area, no chancre noted Neuro: Patient oriented x3 Extremities: Normal to inspection [facility] Medical History High serum estradiol Surgical History History of surgery Family History Mother No problems noted. Father No problems noted. 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 Witnessing signs of dermatitis likely associated with condom use, testing for sexually transmitted infections was conducted for comprehensive evaluation. Switching to latex-free condoms and using Aquaphor ointment to alleviate irritation was advised. Monitoring of symptoms was advised, with a follow-up planned if symptoms do not resolve. Chlamydia and gonorrhea testing sent however low suspicion for these infections. Patient was informed and verbally consented to the use of an ambient scribe for clinic note documentation during this visit. Coding Level of Care Code Est Pt Level 3 (06758) Diagnoses Dermatitis L30.9
[2024-04-19 13:12] VITALS: BP 110/80; PULSE 80; O2SAT 98
--- OUTSIDE RECORDS SUMMARY | 2024-04-19 13:26 | XMS_ITS | Encounter Summary ---
Author Name [facility] [place] Address [address] [place] [id number] Care Team Providers Care Garage Construction Equipment Mechanic Name Role Phone MADISON WRIGHT Primary Care [...] section includes the information on record at [place] for the Encounter. Date/Time Encounter Type Encounter Description Reason Provider Source Feb 26, 2024 03:00 PM OFFICE O/P EST MOD 30 MIN PRIMARY CARE/MEDICINE ICD-10-CM N52.9 Male erectile dysfunction, unspecified MADISON WRIGHT Encounter Template Text not used by [place] Assessments - Encounter Diagnoses This section includes the primary and secondary diagnoses documented for the Encounter. Date/Time Primary/Secondary Diagnosis Diagnosis Name Provider Source Apr 14, 2024 01:21 PM PRIMARY Male erectile dysfunction, unspecified MADISON WRIGHT Apr 14, 2024 01:21 PM SECONDARY Low back pain, unspecified MADISON WRIGHT Apr 14, 2024 01:21 PM SECONDARY Major depressive disorder, single episode, unspecified MADISON WRIGHT Plan of Treatment: Future Appointments (+ 6 months) and Future Tests (+/- 45 days) The Plan of Treatment section includes future care activities for the patient [facility] [place] [facility] This section includes future appointments and future orders which are active, pending or scheduled. Future Appointments This section includes appointments that were scheduled to occur 6 months from the date of the Encounter, up to a maximum of 20 appointments. The [facility] Appointment Date/Time Appointment Type Appointme nt Facility Name Mar 16, 2024 09:00 AM AM[place]UL[place]ORY [place] [place] [facility] Apr 05, 2024 09:00 AM AM[place]UL[place]ORY [place] [place] [facility] Apr 19, 2024 09:00 AM AMBULATORY - [place] [facility] [place] [facility] Apr 19, 2024 09:00 AM [place] [facility] May 13, 2024 01:30 PM AMBULATORY - MEDICINE [place] Active, Pending, and Scheduled Orders This section includes a listing of several types of active, pending, and scheduled orders, including clinic medications orders, diagnostic test orders, procedure orders and consult orders; where the start date of the order is 45 days before the date of the Encounter or 45 days after the date of theEncounter. The [facility] comes from all [facility] Test Date/Time Test Type Test Details Facility Name Apr 08, 2024 01:04 PM Consult Order [facility] Home Sales Service Professional's Choice [place] Vital Signs: All taken on the encounter date This section contains inpatient and outpatient Vital Signs collected on the date of the Encounter. Date/Time Temperature Pulse Blood Pressure Respiratory Rate SP02 Pain Height Weight Body Mass Index Source Feb 26, 2024 03:07 PM 96.9 76 110/71 20 98 0 76 277 34 [facility] [place] Social History: Smoking Status (Most current) and Tobacco Use (All prior to encounter date) This section includes the most current, and the historical, smoking and tobacco- related health factors from the [place] facility where the Encounter took place. Current Smoking Status This section includes the most current smoking, or tobacco-related health factor, from the [place] facility where the Encounter took place. Date/Time Current Smoking Status Comment Ema mensah Aug 17, 2023 09:00 AM [place]-TOBACCO NEVER USED [place] Encounter Notes: All associated encounter notes This section contains the clinical notes associated to the Encounter. Date/Time Encounter Note(s) Provider Source Feb 26, 2024 03:16 PM PRIMARY CARE NURSE PRACTITIONER OUTPATIENT NOTE: LOCAL TITLE: NURSE PRACTITIONER OUTPATIENT NOTE STANDARD TITLE: PRIMARY CARE NURSE PRACTITIONER OUTPATIENT NOTE DATE OF NOTE: FEB 26, 2024@15:16 ENTRY DATE: FEB 26, 2024@15:16:37 AUTHOR: MADISON WRIGHTIGNER: URGENCY: STATUS: COMPLETED PRIMARY CARE VISIT BRUNO HANCOCK, is a 38 yo WHITE MALE [place] who presents at the [place] [facility]. TYPE OF VISIT: Face to face 36-year-old male currently serving in the [email or web address] with chronic low back pain, MDD, gynecomastia status postsurgical repair, and COVID-19 in 2019 not requiring hospitalization presented to the outpatient clinic in regular follow-up. He is currently comanaged with a community PCP. He was last seen in primary care by me in September 2023. At that time, a trial of Viagra was initiated and he was instructed to stop vitamin D supplement. In addition, he complained of left wrist pain and x-ray was ordered which he did not have done yet. He has since followed up with urology who prescribed tadalafil. He is anticipating his initial visit with mental health in February 2024 Recent labs and diagnostic studies were reviewed with the . All medications were reconciled during this visit. HEALTHCARE PROVIDERS: Community PCP: Dr. Santiago Chiropractor: Claire in [place] Derm: [facility] Urology: Dr. Andriy Hinojosa Social Hx: Recently and living with his parents currently. He has never smoked. Drinks alcohol occasionally but not to excess. No MJ or other substances. 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 He gets regular exercise daily at the gym lifting weights and aerobics. Family history: Father: Recently passed at age 65. DM, CAD, alcohol abuse, illicit drug abuse. Mother: Alive at age 65. Multiple sclerosis. Paternal grandfather: Diabetes A brother and a sister with no known medical problems. HISTORY: PERIOD OF SERVICE - [employer] FROM Mar TO Mar COMBAT [...] N52.9 08/17/2023 MADISON WRIGHT VITAL SIGNS: Temperature 96.9 F [36.1 C] (02/26/2024 15:07) Blood Pressure 110/71 (02/26/2024 15:07) Pulse 76 (02/26/2024 15:07) Respiration 20 (02/26/2024 15:07) Pain 0 (02/26/2024 15:07) BMI BMI: 33.8 Weight 277 lb [125.65 kg] (02/26/2024 15:07) Pulse Oximetry 98% (02/26/2024 15:07) ASSISTIVE DEVICES: None REVIEW OF SYSTEMS: CONSTITUTIONAL: [...] EOMI. Anicteric sclerae. ENT: Moist oral mucosa. Neck: Supple. No thyromegaly or LAD. No bruit. Lungs: CTA. Normal chest excursion. Eupneic respirations. CV: Heart tones S1, S2. RRR. No M/G/R. No peripheral edema GI: Abdomen is soft and nontender. No palpable mass. : No CVA tenderness. Ext: No cyanosis or clubbing. No gross deformities. Neuro: CN II through XII grossly intact. Normal speech. Normal gait. Integument: Skin warm and dry. No concerning lesions or rashes. Psych: Normal mood and affect. Normal judgment. ALLERGIES: ========= Patient has answered NKA >> HEALTH MAINTENANCE PREVENTIVE MEDICINE GOALS Info Only: [facility] Video Connect Capable DUE NOW Mental Health Treatment Plan DUE NOW Influenza Immunization DUE NOW Medication Reconciliation DUE NOW COVID-19 Immunization DUE NOW (Optional) Whole Health Documentation DUE NOW ASSESSMENT/PLAN: Active problems - Computerized Problem List is the source for the following: Chronic low back pain: Takes OTC NSAIDs as needed for symptomatic relief. Does stretching exercises and goes to the gym regularly. Major depressive disorder: Initial appointment with [facility] in February. Erectile dysfunction: Started on tadalafil by urology, Dr. Hinojosa. FOLLOW UP: RTC Below & sooner PRN UPCOMING APPOINTMENTS: 04/05/2024 09:00 [facility] CARE-DERMATOLOGY 04/19/2024 09:00 CW-V01 [facility]-16 30 minutes spent in patient evaluation, data review, [...] this [place] (local) and dispensed from another [place] or [facility] facility (remote) as well as inpatient orders [...] /caroline/ MADISON WRIGHT NP NURSE PRACTITIONER Signed: 04/14/2024 13:20 MADISON WRIGHT [place] Feb 26, 2024 03:09 PM PREVENTIVE MEDICIN E NURSING NOTE: LOCAL TITLE: CLINICAL REMINDERS/NURSING STANDARD TITLE: PREVENTIVE MEDICINE NURSING NOTE DATE OF NOTE: FEB 26, 2024@15:09 ENTRY DATE: FEB 26, 2024@15:09:27 AUTHOR: NAILA STALLWORTH COSIGNER: URGENCY: STATUS: COMPLETED Advance Directive Screen MH AD: Patient does not have a completed advance directive on file at any facility, [place] or outside. S/he is not interested in completing one at this time. The patient received education about Advance Directives and written notification of his/her rights. Influenza Immunization: The patient has received the seasonal influenza vaccine for the current season at another location. Documented: INFLUENZA, UNSPECIFIED FORMULATION Historical Date Administered: 2023 Exact date unknown Outside Location: Outside Healthcare Provider Information Source: FROM OTHER PROVIDER COVID-19 Immunization: Vaccine given previously - no written/electronic documentation available The patient was instructed to bring a copy of their COVID-19 vaccine information to their next appointment so that this can be accurately recorded in their [facility] medical record. /caroline/ NAILA STALLWORTH LPN LPN Signed: 02/26/2024 15:10 NAILA STALLWORTH
--- OUTSIDE RECORDS SUMMARY | 2024-04-19 13:26 | XMS_ITS | Encounter Summary ---
Author Name [facility] [place] [facility] [place] [facility] [place] Address [address] [place] [id number] Care Team Providers Care Administration Specialist Name Role Phone MADISON WRIGHT Primary [...] section includes the information on record at [place] for the Encounter. Date/Time Encounter Type Encounter Description Reason Provider Source Apr 19, 2024 09:00 AM SYNCH AUDIO-VIDEO [place] [id number] [facility] ICD-10-CM F43.12 Post-traumatic stress disorder, chronic NAHOMY,BLANCA Grayson Encounter Template Text not used by [facility] Assessments - Encounter Diagnoses This section includes the primary and secondary diagnoses documented for the Encounter. Date/Time Primary/Secondary Diagnosis Diagnosis Name Provider Source Apr 19, 2024 10:51 AM PRIMARY Post-traumatic stress disorder, [facility] Apr 19, 2024 10:51 AM SECONDARY Anxiety disorder, unspecified NAHOMY,BLANCA [facility] Apr 19, 2024 10:51 AM SECONDARY Major depressive disorder, recurrent, moderate NAHOMYBLANCA Valdovinos [facility] Plan of Treatment: Future Appointments (+ 6 months) and Future Tests (+/- 45 days) The Plan of Treatment section includes future care activities for the patient from all [place] treatmentfacilities. This section includes future appointments and future orders which are active, pending or scheduled. Future Appointments This section includes appointments that were scheduled to occur 6 months from the date of the Encounter, up to a maximum of 20 appointments. The data comes from all [place] treatment facilities. Appointment Date/Time Appointment Type Appointme nt Facility Name May 13, 2024 01:30 PM AMBULATORY - [...] of theEncounter. The data comes from all [place] treatment facilities. Test Date/Time Test Type Test Details Facility Name Apr 08, 2024 01:04 PM Consult Order [facility]ITY CARE-[facility]TH[facility] GENERAL Cons [employer] Professor[facility] Choice [place] Encounter Notes: All associated encounter notes This section contains the clinical notes associated to the Encounter. Date/Time Encounter Note(s) Provider Source Apr 19, 2024 09:00 AM MENTAL HEALTH CONS ULT: LOCAL TITLE: TELEMENTAL HEALTH CONSULT NOTE STANDARD TITLE: MENTAL HEALTH CONSULT DATE OF NOTE: APR 19, 2024@09:00 ENTRY DATE: APR 19, 2024@10:49:35 AUTHOR: BLANCA COREA EXP COSIGNER: URGENCY: STATUS: COMPLETED Clinical services were provided by Blanca Corea MD on Mar from the [facility] to the [facility] located in the [facility]. Visit conducted by synchronous video telehealth; patient verbal consent obtained. Location and emergency point of contact and/or number confirmed. Modality of Care: VVC Length of Service: 90 minutes Provisional Diagnosis: PTSD, MDD For a complete progress note including a mental status examination and risk assessment, please see the [facility] medical record (accessible through [facility]). /caroline/ BLANCA COREA Attending Psychiatrist Signed: 04/19/2024 10:51 BLANCA COREA [facility]
--- OUTSIDE RECORDS SUMMARY | 2024-04-19 13:26 | XMS_ITS ---
Author Name [facility] [place] [facility] [place] Address [address] [place] [id number] Care Team Providers Care Back End Architect Name Role Phone MADISON WRIGHT Primary Care [...] section includes the information on record at [place] for the Encounter. Date/Time Encounter Type Encounter Description Reason Pro vider Source Apr 04, 2024 01:50 PM Outpatient Encounter PRIMARY CARE/MEDICINE I[facility] Encounter Template Text not used by [place] Plan of Treatment: Future Appointments (+ 6 months) and Future Tests (+/- 45 days) The Plan of Treatment section includes future care activities for the patient from all [place] treatmentfacilities. This section includes future appointments and future orders which are active, pending or scheduled. Future Appointments This section includes appointments that were scheduled to occur 6 months from the date of the Encounter, up to a maximum of 20 appointments. The data comes from all [place] treatment facilities. Appointment Date/Time Appointment Type Appointme nt Facility Name Apr 05, 2024 09:00 AM [facility] Apr 19, 2024 09:00 AM [facility] Apr 19, 2024 09:00 AM AMBULATORY - [place]CHIATRY [place] [facility] May 13, 2024 01:30 PM AMBULATORY - MEDICINE JOEL GUZMAN Active, Pending, and Scheduled Orders This section includes a listing of several types of active, pending, and scheduled orders, including clinic medications orders, diagnostic test orders, procedure orders and consult orders; where the start date of the order is 45 days before the date of the Encounter or 45 days after the date of theEncounter. The data comes from all [place] treatment facilities. Test Date/Time Test Type Test Details Facility Name Apr 08, 2024 01:04 PM Consult Order [facility] Cons Sales[employer] [place] Encounter Notes: All associated encounter notes This section contains the clinical notes associated to the Encounter. Date/Time Encounter Note(s) Provider Source Apr 04, 2024 01:55 PM ADDENDUM: LOCAL TITLE: Addendum STANDARD TITLE: ADDENDUM DATE OF NOTE: APR 04, 2024@13:55:51 ENTRY DATE: APR 04, 2024@13:55:51 AUTHOR: JUAREZ SERNA EXP COSIGNER: URGENCY: STATUS: COMPLETED Message forwarded to provider to review and advise, MRI results available in [employer]. /caroline/ JUAREZ SERNA REGISTERED NURSE Signed: 04/04/2024 13:57 Receipt Acknowledged By: 04/08/2024 12:58 /caroline/ MADISON WRIGHT NP NURSE PRACTITIONER === --- Original Document --- 04/04/24 PRIMARY CARE SECURE MESSAGING: ------Original Message ------ Sent: 04/04/2024 01:36 PM ET From: BRUNO LINDSEY To: Wyatt WRIGHT_PRIMARY CARE_[facility] Subject: Test:Looking for MRI Results Good afternoon, I'm looking for the results of the MRI I had done on my left wrist March 16, and don't see it anywhere on the [place] website here. Is it something that I will need surgery to correct when I've been dealing with it for so long, and did the MRI confirm what we thought was De Quervain's Tenosynovitis? And what are the next steps? Thank you, Bruno César [phone] /es/ ZOHAIB LAMBERT [employer] DIETARY TECH Signed: 04/04/2024 13:50 Receipt Acknowledged By: 04/04/2024 13:55 /es/ JUAREZ SERNA REGISTERED NURSE 04/04/2024 14:17 /es/ DOUGLAS STALLINGS LPN LPN [facility] [place] [facility] Apr 04, 2024 01:50 PM PRIMARY CARE SECUR E MESSAGING: LOCAL TITLE: PRIMARY CARE SECURE MESSAGING STANDARD TITLE: PRIMARY CARE SECURE MESSAGING DATE OF NOTE: APR 04, 2024@13:50 ENTRY DATE: APR 04, 2024@13:50:29 AUTHOR: ZOHAIB LAMBERT EXP COSIGNER: URGENCY: STATUS: COMPLETED PRIMARY CARE SECURE MESSAGING Has ADDENDA ------Original Message ------ Sent: 04/04/2024 01:36 PM ET From: BRUNO LINDSEY To: Wyatt WRIGHT_PRIMARY CARE_[facility] Subject: Test:Looking for MRI Results Good afternoon, I'm looking for the results of the MRI I had done on my left wrist March 16, and don't see it anywhere on the [place] website here. Is it something that I will need surgery to correct when I've been dealing with it for so long, and did the MRI confirm what we thought was De Quervain's Tenosynovitis? And what are the next steps? Thank you, Bruno Lindsey [phone] /caroline/ ZOHAIB LAMBERT [employer] DIETARY TECH Signed: 04/04/2024 13:50 Receipt Acknowledged By: 04/04/2024 13:55 /jeanne SERNA REGISTERED NURSE 04/04/2024 14:17 /es/ DOUGLAS STALLINGS LPN LPN 04/04/2024 ADDENDUM STATUS: COMPLETED Message forwarded to provider to review and advise, MRI results available in [employer]. /es/ JUAREZ SERNA REGISTERED NURSE Signed: 04/04/2024 13:57 Receipt Acknowledged By: 04/08/2024 12:58 /es/ MADISON WRIGHT NP NURSE PRACTITIONER 04/08/2024 ADDENDUM STATUS: COMPLETED MRI left wrist resulted: Mild tendinopathy and tenosynovitis within first compartment extensor tendons. Findings are consistent with de Quervain's tenosynovitis. Mild extensor carpi ulnaris tendinopathy. Small tear within the central portion of the TFCC. I conveyed these results to the patient. He agrees to referral to orthopedics. /caroline/ MADISON WRIGHT NP NURSE PRACTITIONER Signed: 04/08/2024 13:01 [facility]
--- OUTSIDE RECORDS SUMMARY | 2024-04-19 13:26 | XMS_ITS ---
Author Name [facility] [place] [facility] [place] Address [address] [place] [address] Care Team Providers Care Abrasive Grader Helper Name Role Phone MADISON WRIGHT Primary Care [...] section includes the information on record at [place] for the Encounter. Date/Time Encounter Type Encounter Description Reason Pro vider Source Apr 19, 2024 09:00 AM Outpatient Encounter ADMIN PAT ACTIVTIES (MASNONCT) IHE Encounter Template Text not used by [place] Plan of Treatment: Future Appointments (+ 6 months) and Future Tests (+/- 45 days) The Plan of Treatment section includes future care activities for the patient from all [place] treatmentfacilities. This section includes future appointments and future orders which are active, pending or scheduled. Future Appointments This section includes appointments that were scheduled to occur 6 months from the date of the Encounter, up to a maximum of 20 appointments. The data comes from all [place] treatment facilities. Appointment Date/Time Appointment Type Appointme [...] of theEncounter. The data comes from all [place] treatment facilities. Test Date/Time Test Type Test Details Facility Name Apr 08, 2024 01:04 PM Consult Order [facility] Cons [employer] Consultant[facility] Choice [place]
--- OUTSIDE RECORDS SUMMARY | 2024-04-19 13:26 | XMS_ITS | Encounter Summary ---
Author Organization [facility] Address [address] [place] [address] Care Team Providers Care Weir Fisherman Name Role Phone Pcp, No Primary Care Provider Unavailabl e Reason for Referral * Imaging (Routine) - Authorized Specialty Diagnoses / Procedures Referred By Contac t Referred To Contact Radiology Diagnoses Chronic sinusitis, unspecified Procedures XR SINUSES 4 VIEWS Keli Ferrera NP [address] [place] [address] Phone: tel: fax: [facility] Radiology - Central Scheduling [place] Phone: tel: fax: Referral ID Status Reason Start Date Expiration Date Visits Requested Visits Authorized [id number] Authorized Perform Procedure 04/25/2023 04/24/2024 1 1 Encounter Details Date Type Department Care Team ([facility] st Contact Info) Description 04/25/2023 Ancillary Orders [facility] Radiology, Outpatient Center (Diag Rad) [address] [facility] [address] [place] [address] Keli Ferrera NP [address] [place] [address] Chronic sinusitis, unspecified (Primary Dx) Social History Tobacco Use Types Packs/Day Years Used Date Smoking Tobacco: Never Assessed Sex and Gender Information Value Date Recorded Sex Assigned at Not on file Legal Sex Male 9:43 AM EST Gender Identity Not on file Sexual Orientation Not on file documented as of this encounter Plan of Treatment Not on file documented as of this encounter Results * XR SINUSES 4 VIEWS (04/25/2023 10:03 AM EST) Anatomical Region Laterality Modality Radio Fluoroscop y 04/25/2023 10:3 8 AM EST Impressions 04/25/2023 10:39 AM EST I believe the sinuses are clear but see comments above. Narrative 04/25/2023 10:39 AM EST PROCEDURE: ??XR SINUSES 4 VIEWS CLINICAL INDICATION: ??Chronic sinusitis, unspecified, sinusitis///chronic sinus pain COMPARISON: None. FINDINGS: 4 views. I believe the sinuses are clear but not well imaged. If suspicion persists consider CAT scan. The mastoid air cells on the right appears slightly cloudy but on the left appear clear. The nasal septum is midline. Procedure Note Jagjit Lyon MD - 04/25/2023 PROCEDURE: XR SINUSES 4 VIEWS CLINICAL INDICATION: Chronic sinusitis, unspecified, sinusitis///chronicsinus pain COMPARISON: None. FINDINGS: 4 views. I believe the sinuses are clear but not well imaged. If suspicion persistsconsider CAT scan. The mastoid air cells on the right appears slightlycloudy but on the left appear clear. The nasal septum is midline. IMPRESSION: I believe the sinuses are clear but see comments above. Keli Ferrera DIRECTOR OF CORPORATE REAL ESTATE IMG XR PROCEDURES Final R esult documented in this encounter Visit Diagnoses Diagnosis Chronic sinusitis, unspecified- Primary Chronic sinusitis, unspecified documented in this encounter Care Teams Weir Fisherman Relationship Specialty Start Date End Date Pcp, [place] [address] PCP - General 04/25/23 documented as of this encounter
--- OUTSIDE RECORDS SUMMARY | 2024-04-19 13:26 | XMS_ITS | Continuity of Care Document ---
Author Name [facility] Organization [facility] Care Team Providers Care Piggyback Clerk Name Role Phone [facility] Unavailable Unavailable Problems Combined list of problems from Department of Defense and Veterans Affairs facilities. It does not include entries that were removed or entered in error. Problem Status Onset Date Problem Type Date of Resolution Comments Source Unspecified contact dermatitis, unspecified cause Inactive 12/09/19 Condition DoD ASSESSMENT, POST DEPLOYMENT, DOCUMENTED ON [id number] (PDHRA) Inactive 12/09/19 Condition DoD Low back pain Inactive 10/17/19 20 Condition DoD Pain in left knee Inactive 10/09/19 20 Condition DoD Encounter for other administrative examinations Active 09/13/19 20 Condition [facility] Preventive Medicine New Patient Evaluation Adult 18-39 Years Inactive 03/25/19 14 Condition DoD visit for: administrative purpose Inactive 02/27/20 13 Condition [facility] visit for: services flight physical Active Condition DoD Chronic low back pain Active [...] age 65. Multiple sclerosisJun 2023 Entered By: MADISNO WRIGHT Comment: Paternal grandfather: DM [facility] Gynaecomastia Active Condition Jul Entered By: MADISON WRIGHT Comment: Unknown etiology. S/p surgical repair. [facility] Major depressive disorder Active Condition [facility] Under care of multiple providers Active Condition Aug 17, 2023 Entered By: MADISON WRIGHT Comment: Community PCP: Dr. SantiagoAug 17, 2023 Entered By: MADISON WRIGHT Comment: Dermatology: [facility] [place] Diagnosis: ICD-10-CM F43.12 Post-traumatic stress disorder, chronic Active Diagnosis [facility] Diagnosis: ICD-10-CM N52.9 Male erectile dysfunction, unspecified Active Diagnosis [facility] Diagnosis: ICD-10-CM F32.9 Major depressive disorder, single episode, unspecified Active Diagnosis [facility] [place] [facility] Diagnosis: ICD-10-CM Z51.81 Encounter for therapeutic drug level monitoring Active Diagnosis [facility] Diagnosis: ICD-10-CM M54.50 Low back pain, unspecified Active Diagnosis [facility] Diagnosis: ICD-10-CM 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, recurrent severe w/o psych features Active Diagnosis [facility] Medications Combined list of outpatient medications from [...] FOR DEPRESSI ON AND ANXIETY Active 08/17/2024 [id number] MADISON WRIGHT 2023 45 [facility] CITALOPRAM HYDROBROMID E 40MG TAB TAKE ONE-HALF TABLET BY MOUTH ONCE DAILY FOR DEPRESSI ON AND ANXIETY ORAL ACTIVE 10/19/2024 [id number] 5 Wyatt WRIGHT A 2023 45 [place] CITALOPRAM HYDROBROMID E 40MG TAB TAKE ONE-HALF TABLET BY MOUTH ONCE DAILY FOR DEPRESSI ON AND ANXIETY ORAL DISCONT INUED 08/17/2024 [id number] 4 Wyatt WRIGHT A 2023 45 [place] CYCLOBENZAP RINE (U/D) 10 MG ORAL TAB TAKE ONE TABLET BY MOUTH THREE TIMES DAILY NEEDED FOR MUSCLE SPASM 09/16/2023 [id number] 4 MADISON WRIGHT A 2023 30 [facility] CYCLOBENZAP RINE HCL 10MG TAB TAKE ONE TABLET BY MOUTH THREE TIMES DAILY NEEDED FOR MUSCLE SPASM ORAL 09/16/2023 [id number] 4 Wyatt WRIGHT A 2023 30 [place] sildenafiL 50 MG ORAL TAB TAKE ONE TABLET BY MOUTH NEEDED FOR ERECTILE DYSFUNCT ION TAKE 1 HOUR PRIOR TO SEXUAL ACTIVITY 11/15/2023 [id number] 4 MADISON WRIGHT A 2023 18 [facility] SILDENAFIL CITRATE 100MG TAB TAKE ONE-HALF TABLET BY MOUTH DIRECTED BY PROVIDER TAKE 1 HOUR PRIOR TO SEXUAL ACTIVITY ORAL DISCONT INUED BY PROVIDE R 04/12/2025 [id number] 5 KASSI STACY 2024 18 [place] SILDENAFIL CITRATE 100MG TAB TAKE ONE TABLET BY MOUTH NEEDED FOR ERECTILE DYSFUNCT ION TAKE 1 HOUR PRIOR TO SEXUAL ACTIVITY ORAL DISCONT INUED 10/19/2024 [id number] 4 Wyatt WRIGHTD A 2023 18 [place] SILDENAFIL CITRATE 50MG TAB TAKE ONE TABLET BY MOUTH NEEDED FOR ERECTILE DYSFUNCT ION TAKE 1 HOUR PRIOR TO SEXUAL ACTIVITY ORAL DISCONT INUED (EDIT) 11/15/2023 [id number] 4 Wyatt WRIGHT A 2023 18 [place] TADALAFIL 20MG TAB TAKE ONE TABLET BY MOUTH NEEDED ORAL ACTIVE 12/19/2024 [id number] SHELLY COOPER 2023 18 [place] Allergies, Adverse Reactions, Alerts Combined list of allergies from Department of Defense and Veterans Affairs facilities. It does not include entries that were removed or entered in error. Substance Category Reaction Severity Reaction type Status Date Reported Comments Source No Known Allergies Drug allergy (disorder) active 02/26/2013 [place] [address] Immunizations Combined list of available immunizations from the Department of Defense and Veterans Affairs facilities. 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 Restaurant Status Comments Source influenza virus vaccine, unspecified 2023 MORENA MICHELLE Shoul aries, left (delt oid) [id number] [employer] complet ed influenza virus vaccine, unspecifi ed 12/03/23 Recorded Ambulat ory Pharmac y TDAP 2023 ANJEL STALLINGS RIGHT DELTO ID [id number] complet ed [facility] INFLUENZA, UNSPECIFIED FORMULATION 2023 88 complet ed [facility] influenza, injectable, quadrivalent- pf 2021 [id number] GlaxoSmithKli ne complet ed influenza , injectabl e, quadrival ent-pf 12/12/21 Given Ambulat ory Pharmac y COVID Vaccine Moderna 2020 [id number] complet ed COVID Vaccine Moderna 02/26/21 Given Ambulat ory Pharmac y influenza virus vaccine, inactivated 2020 [id number] [employer] complet ed influenza virus vaccine, inactivat ed 01/02/21 Given Ambulat ory Pharmac y COVID Vaccine Moderna 2020 [id number] complet ed COVID Vaccine Moderna 03/22/20 Given Ambulat ory Pharmac y influenza, injectable, quadrivalent- pf 2019 [id number] 150 GlaxoSmithKli ne complet ed influenza , injectabl e, quadrival ent-pf 02/14/20 Given Ambulat ory Pharmac y anthrax vaccine 2019 [id number] Emergent Biosolutions complet ed anthrax vaccine 09/27/19 Given Ambulat ory Pharmac y typhoid Vi capsular polysaccharid e vac 2019 [id number] sanofi pasteur complet ed typhoid Vi capsular polysacch aride vac 04/25/19 Given Ambulat ory Pharmac y anthrax vaccine 2019 [id number] [employer] complet ed anthrax vaccine 04/25/19 Given Ambulat ory Pharmac y influenza, injectable, quadrivalent- pf 2017 [id number] Seqirus complet ed influenza , injectabl e, quadrival ent-pf 12/31/17 Given Ambulat ory Pharmac y influenza virus vaccine, inactivated 2016 [id number] 88 Se[employer] complet ed influenza virus vaccine, inactivat ed 11/19/16 Given Ambulat ory Pharmac y influenza, seasonal, injectable-pf 2015 [id number] CSL Behring complet ed influenza , seasonal, injectabl e-pf 01/03/16 Given Ambulat ory Pharmac y influenza, seasonal, injectable-pf 2014 [id number] 140 CSL Behring complet ed influenza , [...] ory Pharmac y meningococcal A,C,Y,W-135 (MCV4P) 2012 [id number] 114 sanofi pasteur complet ed meningoco ccal A,C,Y,W-1 35 (MCV4P) 02/15/13 Given Ambulat ory Pharmac y influenza, seasonal, injectable-pf 2012 [id number] 140 Novartis Pharmaceutica ls complet ed influenza , seasonal, injectabl e-pf 02/15/13 Given Ambulat ory Pharmac y adenovirus vaccine, live 2012 [id number] 143 Teva Pharmaceutica ls complet ed [...] Source HEPATITI S B SURFACE ANTIGEN (HBsAg)- WH HEPATITIS B VIRUS SURFACE AG [PRESENCE] IN [...] Aug 17, 2023 10:07 AM Reporting Lab: [address] [address] Performing Lab: [address] [address] [place] HEPATITI S B SURFACE ANTIBODY (HBsAb)- HEPATITIS B VIRUS SURFACE AB [PRESENCE] IN SERUM BY IMMUNOASSA Y REACTIVE 08/16 Specimen Type: SERUM Comment: Hemolysis present analysis cannot be performed. Hemolysis present may falsly elevate Potassium Total and Direct Bili, Iron, AST, %Fe. Ordering Provider: ALISSON WRIGHT A Report Released Date/Time: Aug 17, 2023 10:07 AM Reporting Lab: [address] [address] Performing Lab: [address] [address] [place] TESTOSTE TERRI, TOTAL (WHV) TESTOSTERO NE [MASS/VOLU ME] IN SERUM OR PLASMA 412.10 ng/dL 220.00 - 892.00 08/16 Specimen Type: SERUM No comment entered. Ordering Provider: ALISSON WRIGHT A Report Released Date/Time: Aug 17, 2023 10:07 AM Reporting Lab: [address] [address] Performing Lab: [address] [address] [place] CBC AND DIFF (AUTO) LEUKOCYTES [#/VOLUME] IN BLOOD BY AUTOMATED COUNT 6.79 10*3/uL 4.50 - 11.00 08/16 Specimen Type: BLOOD No comment entered. Ordering Provider: ALISSON WRIGHT A Report Released Date/Time: Aug 17, 2023 10:07 AM Reporting Lab: [facility] [address] [facility] [address] Performing Lab: [facility] [address] [address] [place] CBC AND DIFF (AUTO) ERYTHROCYT ES [#/VOLUME] IN BLOOD BY AUTOMATED COUNT 5.04 10*6/uL 4.23 - 5.66 08/16 Specimen Type: BLOOD No comment entered. Ordering Provider: ALISSON WRIGHT A Report Released Date/Time: Aug 17, 2023 10:07 AM Reporting Lab: [facility] [address] [address] Performing Lab: [facility] [address] [address] [place] CBC AND DIFF (AUTO) HEMOGLOBIN [MASS/VOLU ME] IN BLOOD 15.4 g/dL 12.8 - 17 08/16 Specimen Type: BLOOD No comment entered. Ordering Provider: ALISSON WRIGHT A Report Released Date/Time: Aug 17, 2023 10:07 AM Reporting Lab: [facility] [address] [address] Performing Lab: [facility] [address] [address] [place] CBC AND DIFF (AUTO) HEMATOCRIT [VOLUME FRACTION] OF BLOOD BY AUTOMATED COUNT 45.1 39.2 - 50.4 08/16 Specimen Type: BLOOD No comment entered. Ordering Provider: ALISSON WRIGHT A Report Released Date/Time: Aug 17, 2023 10:07 AM Reporting Lab: [facility] [address] [address] Performing Lab: [facility] [address] [place] CBC AND DIFF (AUTO) MCV [ENTITIC VOLUME] BY AUTOMATED COUNT 89.5 fL 82 - 99 08/16 Specimen Type: BLOOD No comment entered. Ordering Provider: ALISSON WRIGHT A Report Released Date/Time: Aug 17, 2023 10:07 AM Reporting Lab: [facility] [address] [facility] [address] Performing Lab: [facility] [address] [place] CBC AND DIFF (AUTO) MCHC [MASS/VOLU ME] BY AUTOMATED COUNT 34.1 g/dL 30.8 - 35.1 08/16 Specimen Type: BLOOD No comment entered. Ordering Provider: ALISSON WRIGHT A Report Released Date/Time: Aug 17, 2023 10:07 AM Reporting Lab: [facility] [address] [facility] [address] Performing Lab: [facility] [address] [address] [place] CBC AND DIFF (AUTO) PLATELETS [#/VOLUME] IN BLOOD BY AUTOMATED COUNT 304 10*3/uL 140 - 360 08/16 Specimen Type: BLOOD No comment entered. Ordering Provider: ALISSON WRIGHT A Report Released Date/Time: Aug 17, 2023 10:07 AM Reporting Lab: [facility] [address] [address] Performing Lab: [facility] [address] [place] CBC AND DIFF (AUTO) ERYTHROCYT E DISTRIBUTI ON WIDTH [RATIO] BY AUTOMATED COUNT 13.5 12.0 - 16.0 08/16 Specimen Type: BLOOD No comment entered. Ordering Provider: ALISSON WRIGHT A Report Released Date/Time: Aug 17, 2023 10:07 AM Reporting Lab: [facility]ITAL[facility] [address] [address] Performing Lab: [facility]ITALUSE[address] [address] [place] CBC AND DIFF (AUTO) MONOCYTES [#/VOLUME] IN BLOOD BY AUTOMATED COUNT 0.56 10*3/uL 0.30 - 1.10 08/16 Specimen Type: BLOOD No comment entered. Ordering Provider: ALISSON WRIGHT A Report Released Date/Time: Aug 17, 2023 10:07 AM Reporting Lab: [facility] [place] [facility] [address] [facility] [address] Performing Lab: [facility] [place] [facility] [address] [facility] [address] [place] CBC AND DIFF (AUTO) MCH [ENTITIC MASS] BY AUTOMATED COUNT 30.6 pg 26.2 - 32.6 08/16 Specimen Type: BLOOD No comment entered. Ordering Provider: ALISSON WRIGHT A Report Released Date/Time: Aug 17, 2023 10:07 AM Reporting Lab: [facility] [place] [facility] [address] [facility] [address] Performing Lab: [facility] [place] [address] [address] [place] CBC AND DIFF (AUTO) NEUTROPHIL S/100 LEUKOCYTES IN BLOOD BY AUTOMATED COUNT 51.9 43.7 - 75.8 08/16 Specimen Type: BLOOD No comment entered. Ordering Provider: ALISSON WRIGHT A Report Released Date/Time: Aug 17, 2023 10:07 AM Reporting Lab: [facility] [place] [address] [address] Performing Lab: [facility] [place] [address] [address] [place] CBC AND DIFF (AUTO) LYMPHOCYTE S/100 LEUKOCYTES IN BLOOD BY AUTOMATED COUNT 33.9 14.0 - 42.3 08/16 Specimen Type: BLOOD No comment entered. Ordering Provider: ALISSON WRIGHT A Report Released Date/Time: Aug 17, 2023 10:07 AM Reporting Lab: [facility] [place] [address] [address] Performing Lab: [facility] [place] [address] [address] [place] CBC AND DIFF (AUTO) MONOCYTES/ 100 LEUKOCYTES IN BLOOD BY AUTOMATED COUNT 8.2 5.1 - 13.7 08/16 Specimen Type: BLOOD No comment entered. Ordering Provider: ALISSON WRIGHT A Report Released Date/Time: Aug 17, 2023 10:07 AM Reporting Lab: [facility] [address] [facility] [address] Performing Lab: [facility] [address] [facility] [address] [place] CBC AND DIFF (AUTO) EOSINOPHIL S/100 LEUKOCYTES IN BLOOD BY AUTOMATED COUNT 4.6 0.4 - 6.8 08/16 Specimen Type: BLOOD No comment entered. Ordering Provider: ALISSON WRIGHT A Report Released Date/Time: Aug 17, 2023 10:07 AM Reporting Lab: [facility] [address] [facility] [address] Performing Lab: [facility] TRN [address] [address] [place] CBC AND DIFF (AUTO) BASOPHILS/ 100 LEUKOCYTES IN BLOOD BY AUTOMATED COUNT 0.7 0.1 - 2.0 08/16 Specimen Type: BLOOD No comment entered. Ordering Provider: ALISSON WRIGHT A Report Released Date/Time: Aug 17, 2023 10:07 AM Reporting Lab: [facility]N [facility] [address] [facility] [address] Performing Lab: [facility] TRN [facility]ITALUSEST[facility] [place] [address] [facility] [address] [place] CBC AND DIFF (AUTO) NEUTROPHIL S [#/VOLUME] IN BLOOD BY AUTOMATED COUNT 3.52 10*3/uL 2.20 - 7.60 08/16 Specimen Type: BLOOD No comment entered. Ordering Provider: ALISSON WRIGHT A Report Released Date/Time: Aug 17, 2023 10:07 AM Reporting Lab: [facility]ITAL[facility] [address] [facility] [address] Performing Lab: [facility] TRN [facility]ITAL[facility] [address] [place] CBC AND DIFF (AUTO) LYMPHOCYTE S [#/VOLUME] IN BLOOD BY AUTOMATED COUNT 2.30 10*3/uL 1.00 - 3.20 08/16 Specimen Type: BLOOD No comment entered. Ordering Provider: ALISSON WRIGHT A Report Released Date/Time: Aug 17, 2023 10:07 AM Reporting Lab: [facility] [place] [facility] [address] [facility] [address] Performing Lab: [facility] [address] [facility] [address] [place] CBC AND DIFF (AUTO) EOSINOPHIL S [#/VOLUME] IN BLOOD BY AUTOMATED COUNT 0.31 10*3/uL 0.03 - 0.44 08/16 Specimen Type: BLOOD No comment entered. Ordering Provider: ALISSON WRIGHT A Report Released Date/Time: Aug 17, 2023 10:07 AM Reporting Lab: [facility] [address] [address] Performing Lab: [facility] [address] [address] [place] CBC AND DIFF (AUTO) BASOPHILS [#/VOLUME] IN BLOOD BY AUTOMATED COUNT 0.05 10*3/uL 0.01 - 0.13 08/16 Specimen Type: BLOOD No comment entered. Ordering Provider: ALISSON WRIGHT A Report Released Date/Time: Aug 17, 2023 10:07 AM Reporting Lab: [facility] [address] [address] Performing Lab: [facility] [address] [address] [place] CBC AND DIFF (AUTO) IMMATURE GRANULOCYT ES/100 LEUKOCYTES IN BLOOD BY AUTOMATED COUNT 0.7 0.0 - 0.7 08/16 Specimen Type: BLOOD No comment entered. Ordering Provider: ALISSON WRIGHT A Report Released Date/Time: Aug 17, 2023 10:07 AM Reporting Lab: [facility] [address] [address] Performing Lab: [facility] [address] [address] [place] CBC AND DIFF (AUTO) IMMATURE GRANULOCYT ES [#/VOLUME] IN BLOOD 0.05 10*3/uL 0.00 - 0.06 08/16 Specimen Type: BLOOD No comment entered. Ordering Provider: ALISSON WRIGHT A Report Released Date/Time: Aug 17, 2023 10:07 AM Reporting Lab: [facility] [address] [address] Performing Lab: [facility] [address] [address] [place] CBC AND DIFF (AUTO) NRBC % 0.0 0.0 - 0.0 08/16 Specimen Type: BLOOD No comment entered. Ordering Provider: ALISSON WRIGHT A Report Released Date/Time: Aug 17, 2023 10:07 AM Reporting Lab: [facility] [address] [address] Performing Lab: [facility] [address] [address] [place] CBC AND DIFF (AUTO) NRBC, ABS 0.00 10*3/uL 0.00 - 0.00 08/16 Specimen Type: BLOOD No comment entered. Ordering Provider: ALISSON WRIGHT A Report Released Date/Time: Aug 17, 2023 10:07 AM Reporting Lab: [facility] [address] [address] Performing Lab: [facility] [address] [address] [place] MICROALB UMIN CREATINI NE RATIO PANEL MICROALBUM IN/CREATIN INE [MASS RATIO] IN URINE 3.7 mg/g 0 - 29.9 08/16 Specimen Type: URINE No comment entered. Ordering Provider: ALISSON WRIGHT A Report Released Date/Time: Aug 17, 2023 10:07 AM Reporting Lab: [facility] [address] [address] Performing Lab: [facility] [address] [address] [place] MICROALB UMIN CREATINI NE RATIO PANEL MICROALBUM IN [MASS/VOLU ME] IN URINE 1.0 mg/dL 08/16 Specimen Type: URINE No comment entered. Ordering Provider: ALISSON WRIGHT A Report Released Date/Time: Aug 17, 2023 10:07 AM Reporting Lab: [address] [address] Performing Lab: [address] [address] [place] MICROALB UMIN CREATINI NE RATIO PANEL CREATININE [MASS/VOLU ME] IN URINE 267.12 mg/dL 08/16 Specimen Type: URINE No comment entered. Ordering Provider: ALISSON WRIGHT A Report Released Date/Time: Aug 17, 2023 10:07 AM Reporting Lab: [address] [address] Performing Lab: [address] [address] [place] URINALYS IS COLOR OF URINE Yellow 08/16 Specimen Type: URINE Comment: If Glucose = >500 and Ketones are positive, please alert the Physician. Ordering Provider: ALISSON WRIGHT A Report Released Date/Time: Aug 17, 2023 10:07 AM Reporting Lab: [address] [address] Performing Lab: [address] [address] [place] URINALYS IS APPEARANCE OF URINE Clear 08/16 Specimen Type: URINE Comment: If Glucose = >500 and Ketones are positive, please alert the Physician. Ordering Provider: ALISSON WRIGHT A Report Released Date/Time: Aug 17, 2023 10:07 AM Reporting Lab: [address] [address] Performing Lab: [address] [address] [place] URINALYS IS GLUCOSE [MASS/VOLU ME] IN URINE NEGATIVE mg/dL 08/16 Specimen Type: URINE Comment: If Glucose = >500 and Ketones are positive, please alert the Physician. Ordering Provider: ALISSON WRIGHT A Report Released Date/Time: Aug 17, 2023 10:07 AM Reporting Lab: [facility] [address] [facility] [address] Performing Lab: [facility] [address] [facility] [address] [place] URINALYS IS KETONES [MASS/VOLU ME] IN URINE BY TEST STRIP NEGATIVE mg/dL 08/16 Specimen Type: URINE Comment: If Glucose = >500 and Ketones are positive, please alert the Physician. Ordering Provider: ALISSON WRIGHT A Report Released Date/Time: Aug 17, 2023 10:07 AM Reporting Lab: [facility] [address] [facility] [address] Performing Lab: [facility] [address] [address] [place] URINALYS IS ERYTHROCYT ES [PRESENCE] IN URINE SEDIMENT BY LIGHT MICROSCOPY NEGATIVE mg/dL 08/16 Specimen Type: URINE Comment: If Glucose = >500 and Ketones are positive, please alert the Physician. Ordering Provider: ALISSON WRIGHT A Report Released Date/Time: Aug 17, 2023 10:07 AM Reporting Lab: [facility] [address] [facility] [address] Performing Lab: [facility] [address] [address] [place] URINALYS IS PROTEIN [MASS/VOLU ME] IN URINE BY TEST STRIP NEGATIVE mg/dL 08/16 Specimen Type: URINE Comment: If Glucose = >500 and Ketones are positive, please alert the Physician. Ordering Provider: ALISSON WRIGHT A Report Released Date/Time: Aug 17, 2023 10:07 AM Reporting Lab: [facility] [address] [facility] [address] Performing Lab: [facility] [address] [address] [place] URINALYS IS NITRITE [PRESENCE] IN URINE NEGATIVE mg/dL 08/16 Specimen Type: URINE Comment: If Glucose = >500 and Ketones are positive, please alert the Physician. Ordering Provider: ALISSON WRIGHT A Report Released Date/Time: Aug 17, 2023 10:07 AM Reporting Lab: [address] [address] Performing Lab: [address] [address] [place] URINALYS IS BILIRUBIN. TOTAL [PRESENCE] IN URINE NEGATIVE mg/dL 08/16 Specimen Type: URINE Comment: If Glucose = >500 and Ketones are positive, please alert the Physician. Ordering Provider: ALISSON WRIGHT A Report Released Date/Time: Aug 17, 2023 10:07 AM Reporting Lab: [address] [address] Performing Lab: [address] [address] [place] URINALYS IS SPECIFIC GRAVITY OF URINE BY REFRACTOME TRY 1.037 1.016 - 1.022 08/16 H Specimen Type: URINE Comment: If Glucose = >500 and Ketones are positive, please alert the Physician. Ordering Provider: ALISSON WRIGHT A Report Released Date/Time: Aug 17, 2023 10:07 AM Reporting Lab: [address] [address] Performing Lab: [address] [address] [place] URINALYS IS PH OF URINE BY TEST STRIP 6.0 5.0 - 9.0 08/16 Specimen Type: URINE Comment: If Glucose = >500 and Ketones are positive, please alert the Physician. Ordering Provider: ALISSON WRIGHT A Report Released Date/Time: Aug 17, 2023 10:07 AM Reporting Lab: [facility] [address] [address] Performing Lab: [address] [address] [place] [facility] IS UROBILINOG EN [MASS/VOLU ME] IN URINE BY TEST STRIP <2.0mg/d L <2.0 - 2.0 08/16 Specimen Type: URINE Comment: If Glucose = >500 and Ketones are positive, please alert the Physician. Ordering Provider: ALISSON WRIGHT A Report Released Date/Time: Aug 17, 2023 10:07 AM Reporting Lab: [facility] [address] [facility] [address] Performing Lab: [facility] [address] [facility] [address] [place] URINALYS IS LEUKOCYTE ESTERASE [PRESENCE] IN URINE BY TEST STRIP NEGATIVE 08/16 Specimen Type: URINE Comment: If Glucose = >500 and Ketones are positive, please alert the Physician. Ordering Provider: ALISSON WRIGHT A Report Released Date/Time: Aug 17, 2023 10:07 AM Reporting Lab: [address] [address] Performing Lab: [facility] [address] [facility] [address] [place] HEPATITI S C ANTIBODY (HCV)-AR C HEPATITIS C VIRUS AB [PRESENCE] IN SERUM NON-REAC TIVE 08/16 Specimen Type: SERUM Comment: Hep C Ab: No HCV antibody detected. If recent infection is suspected or other evidence suggests HCV infection, consider HCV nucleic acid testing Ordering Provider: ALISSON WRIGHT A Report Released Date/Time: Aug 17, 2023 10:07 AM Reporting Lab: [facility] [address] [facility] [address] Performing Lab: [facility] [address] [facility] [address] [place] HIV 1&2 Ag/Ab SCREEN HIV 1+2 AB+HIV1 P24 AG [PRESENCE] IN SERUM OR PLASMA BY IMMUNOASSA Y NON-REAC TIVE 08/16 Specimen Type: SERUM No comment entered. Ordering Provider: ALISSON WRIGHT A Report Released Date/Time: Aug 17, 2023 10:07 AM Reporting Lab: [facility] [address] [facility] [address] Performing Lab: [facility] [address] [facility] [address] [place] BASIC METABOLI C PANEL (non-fas ting) UREA NITROGEN [MASS/VOLU ME] IN SERUM OR PLASMA 21 mg/dL 7 - 25 08/16 Specimen Type: SERUM Comment: Hemolysis present analysis cannot be performed. Hemolysis present may falsly elevate Potassium Total and Direct Bili, Iron, AST, %Fe. Ordering Provider: ALISSON WRIGHT A Report Released Date/Time: Aug 17, 2023 10:07 AM Reporting Lab: [facility] [address] [facility] [address] Performing Lab: [facility] [address] [facility] [address] [place] BASIC METABOLI C PANEL (non-fas ting) GLUCOSE [MASS/VOLU ME] IN SERUM OR PLASMA 82 mg/dL 65 - 100 08/16 Specimen Type: SERUM Comment: Hemolysis present analysis cannot be performed. Hemolysis present may falsly elevate Potassium Total and Direct Bili, Iron, AST, %Fe. Ordering Provider: ALISSON WRIGHT A Report Released Date/Time: Aug 17, 2023 10:07 AM Reporting Lab: [facility] [address] [facility] [address] Performing Lab: [facility] [address] [address] [place] BASIC METABOLI C PANEL (non-fas ting) SODIUM [MOLES/VOL UME] IN SERUM OR PLASMA 139 mmol/L 135 - 145 08/16 Specimen Type: SERUM Comment: Hemolysis present analysis cannot be performed. Hemolysis present may falsly elevate Potassium Total and Direct Bili, Iron, AST, %Fe. Ordering Provider: ALISSON WRIGHT A Report Released Date/Time: Aug 17, 2023 10:07 AM Reporting Lab: [facility] [address] [facility] [address] Performing Lab: [address] [address] [place] BASIC METABOLI C PANEL (non-fas ting) POTASSIUM [MOLES/VOL UME] IN SERUM OR PLASMA 4.3 mmol/L 3.5 - 5.0 08/16 Specimen Type: SERUM Comment: Hemolysis present analysis cannot be performed. Hemolysis present may falsly elevate Potassium Total and Direct Bili, Iron, AST, %Fe. Ordering Provider: ALISSON WRIGHT A Report Released Date/Time: Aug 17, 2023 10:07 AM Reporting Lab: [facility] [address] [facility] [address] Performing Lab: [address] [address] [place] BASIC METABOLI C PANEL (non-fas ting) CHLORIDE [MOLES/VOL UME] IN SERUM OR PLASMA 105 mmol/L 100 - 110 08/16 Specimen Type: SERUM Comment: Hemolysis present analysis cannot be performed. Hemolysis present may falsly elevate Potassium Total and Direct Bili, Iron, AST, %Fe. Ordering Provider: ALISSON WRIGHT A Report Released Date/Time: Aug 17, 2023 10:07 AM Reporting Lab: [address] [address] Performing Lab: [address] [address] [place] BASIC METABOLI C PANEL (non-fas ting) CARBON DIOXIDE, TOTAL [MOLES/VOL UME] IN SERUM OR PLASMA 24 meq/L 20 - 30 08/16 Specimen Type: SERUM Comment: Hemolysis present analysis cannot be performed. Hemolysis present may falsly elevate Potassium Total and Direct Bili, Iron, AST, %Fe. Ordering Provider: ALISSON WRIGHT A Report Released Date/Time: Aug 17, 2023 10:07 AM Reporting Lab: [facility] [address] [facility] [address] Performing Lab: [address] [address] [place] BASIC METABOLI C PANEL (non-fas ting) CREATININE [MASS/VOLU ME] IN SERUM OR PLASMA 1.13 mg/dL 0.50 - 1.40 08/16 Specimen Type: SERUM Comment: Hemolysis present analysis cannot be performed. Hemolysis present may falsly elevate Potassium Total and Direct Bili, Iron, AST, %Fe. Ordering Provider: ALISSON WRIGHT A Report Released Date/Time: Aug 17, 2023 10:07 AM Reporting Lab: [facility] [address] [facility] [address] Performing Lab: [address] [address] [place] [employer] BASIC METABOLI C PANEL (non-fas ting) GLOMERULAR FILTRATION RATE/1.73 SQ M.PREDICTE D [VOLUME RATE/AREA] IN SERUM, PLASMA OR BLOOD BY CREATININE -BASED FORMULA (CKD-EPI 2020) 85 mL/min 60 08/16 Specimen Type: SERUM Comment: Hemolysis present analysis cannot be performed. Hemolysis present may falsly elevate Potassium Total and Direct Bili, Iron, AST, %Fe. Ordering Provider: ALISSON WRIGHT A Report Released Date/Time: Aug 17, 2023 10:07 AM Reporting Lab: [address] [address] Performing Lab: [address] [address] [place] LIVER FUNCTION PROTEIN [MASS/VOLU ME] IN SERUM OR PLASMA 7.0 g/dL 6.0 - 8.3 08/16 Specimen Type: SERUM Comment: Hemolysis present analysis cannot be performed. Hemolysis present may falsly elevate Potassium Total and Direct Bili, Iron, AST, %Fe. Ordering Provider: ALISSON WRIGHT A Report Released Date/Time: Aug 17, 2023 10:07 AM Reporting Lab: [address] [address] Performing Lab: [address] [address] [place] LIVER FUNCTION ALBUMIN [MASS/VOLU ME] IN SERUM OR PLASMA 4.0 g/dL 3.5 - 5.0 08/16 Specimen Type: SERUM Comment: Hemolysis present analysis cannot be performed. Hemolysis present may falsly elevate Potassium Total and Direct Bili, Iron, AST, %Fe. Ordering Provider: ALISSON WRIGHT A Report Released Date/Time: Aug 17, 2023 10:07 AM Reporting Lab: [address] [address] Performing Lab: [address] [address] [place] L[place] FUNCTION ALKALINE PHOSPHATAS E [ENZYMATIC ACTIVITY/V OLUME] IN SERUM OR PLASMA 55 U/L 40 - 150 08/16 Specimen Type: SERUM Comment: Hemolysis present analysis cannot be performed. Hemolysis present may falsly elevate Potassium Total and Direct Bili, Iron, AST, %Fe. Ordering Provider: ALISSON WRIGHT A Report Released Date/Time: Aug 17, 2023 10:07 AM Reporting Lab: [address] [address] Performing Lab: [address] [address] [facility] ASPARTATE AMINOTRANS FERASE [ENZYMATIC ACTIVITY/V OLUME] IN SERUM OR PLASMA 35 U/L 5 - 34 08/16 H Specimen Type: SERUM Comment: Hemolysis present analysis cannot be performed. Hemolysis present may falsly elevate Potassium Total and Direct Bili, Iron, AST, %Fe. Ordering Provider: ALISSON WRIGHT A Report Released Date/Time: Aug 17, 2023 10:07 AM Reporting Lab: [address] [address] Performing Lab: [address] [address] [facility] LIVER FUNCTION ALANINE AMINOTRANS FERASE [ENZYMATIC ACTIVITY/V OLUME] IN SERUM OR PLASMA 27 U/L 08/16 Specimen Type: SERUM Comment: Hemolysis present analysis cannot be performed. Hemolysis present may falsly elevate Potassium Total and Direct Bili, Iron, AST, %Fe. Ordering Provider: ALISSON WRIGHT A Report Released Date/Time: Aug 17, 2023 10:07 AM Reporting Lab: [facility] [address] Performing Lab: [address] [address] [facility] LIVER FUNCTION BILIRUBIN. TOTAL [MASS/VOLU ME] IN SERUM OR PLASMA commentm g/dL 0.2 - 1.2 08/16 Specimen Type: SERUM Comment: Hemolysis present analysis cannot be performed. Hemolysis present may falsly elevate Potassium Total and Direct Bili, Iron, AST, %Fe. Ordering Provider: ALISSON WRIGHT Report Released Date/Time: Aug 17, 2023 10:07 AM Reporting Lab: [address] [address] Performing Lab: [address] [address] [facility] Infectio us Disease HIV-1/O/2 Non-Reac tive 1 [...] Prevention' s HIV diagnostic algorithm. Refer to [facility] Lab Guide for additional information : [email or web address] [email or web address]. [email or web address].[email or web address] [[email or web address]]/ [email or web address] ab/[email or web address]/la [email or web address] x Testing performed by [employer]. [id number] Management [facility] EPILAB Pamelacella neous Sendouts Repository Sample Received (03/04/23 12:55 PM) 03/04 N [facility] Miscella neous Sendouts Perfluorob utanesulfo winnie Acid LC None Detected 05/11 Result Comment: Reporting Limit: 0.050 ng/mL Synonym(s): PFBS Population reference interval derived from [facility] data (n=151) is usually less than 0.053 ng/mL (90% CI, <0.050-0.23 ng/mL) (97.5th percentile) General [place] population from [facility] () (k=1487) (isomers not described) is typically below 0.1 ng/mL (95th percentile) Analysis by [employer] Liquid Chromatogra phy/ Tandem Mass Spectrometr y (LC-MS/MS) EFFECTIVE June 27, 2022 [id number] Perfluoroak yl Substances, S/P will be made non-orderab le. [facility] offers order code [id number] PFAS Expanded, S/P. For further information , please contact your local [facility] Casimiro avalosArnol [id number] [facility] Pamelacella neous Sendouts Perfluoroh eptanoic Acid LC None Detected 05/11 Result Comment: Reporting Limit: 0.050 ng/mL Synonym(s): PFHpA Comment: Substance(s ) known to interfere with the identity and/or quantity of the reported result: Perfluorope ntanoic Acid (PFPeA); Perfluorohe xanoic Acid (PFPxA) Population reference interval derived from [facility] data (n=151) is usually less than 0.47 ng/mL (90% CI, 0.25-0.73 ng/mL) (97.5th percentile) General [place] population from [facility] () (w=9748) (isomers not described) is typically below 0.20 ng/mL (95% CI, 0.10-0.20 ng/mL) (95th percentile) Analysis by [employer] Liquid Chromatogra phy/ Tandem Mass Spectrometr y (LC-MS/MS) [id number] [facility] Miscella neous Sendouts Perfluoroh exanesulfo winnie Acid LC 1.2 ng/mL 05/11 Result Comment: Reporting Limit: 0.050 ng/mL Synonym(s): PFHxS Population reference interval derived from [facility] data (n=151) is usually less than 5.8 ng/mL (90% CI, 4.1-17 ng/mL) (97.5th percentile) General [place] population from [facility] () (b=7319) (isomers not described) is typically below 4.9 ng/mL (95% CI, 4.1-5.8 ng/mL) (95th percentile) Analysis by [employer] Liquid Chromatogra phy/ Tandem Mass Spectrometr y (LC-MS/MS) [id number]- C-66th [facility] [employer] [facility] Perfluoroo ctanoic Acid LC None Detected 05/11 Result Comment: Reporting Limit: 0.50 ng/mL Synonym(s): FC-143 Component; PFOA Population reference interval derived from [facility] data (n=151) is usually less than 4.1 ng/mL (90% CI, 3.3-8.0 ng/mL) (97.5th percentile) General [place] population from [facility] () (x=4236) for the linear isomer is typically below 4.1 ng/mL (95% CI, 3.8-4.6 ng/mL) (95th percentile) Occupationa l Exposures: Mean serum concentrati ons from workers exposed at facilities that manufacture PFOA or its salts ranged from 840 to 6800 ng/mL (isomers not described). The reported serum range for all workers was 0 to 012062 ng/mL (isomers not described). Analysis by [employer] Performance Liquid Chromatogra phy/ Tandem Mass Spectrometr y (LC-MS/MS) [id number]- C-66th [facility] [employer] [facility] Perfluoron onanoic Acid LC 0.38 ng/mL 05/11 Result Comment: Reporting Limit: 0.050 ng/mL Synonym(s): PFNA Comment: Substance(s ) known to interfere with the identity and/or quantity of the reported result: Perfluorode canoic Acid (PFDA) Population reference interval derived from [facility] data (n=151) is usually less than 1.4 ng/mL (90% CI, 1.2-2.3 ng/mL) (97.5th percentile) General [place] population from [facility] () (t=2134) (isomers not described) is typically below 1.9 ng/mL (95% CI, 1.5-2.2 ng/mL) (95th percentile) Analysis by High [employer] Liquid Chromatogra phy/ Tandem Mass Spectrometr y (LC-MS/MS) 0AAF- C66 [facility] Miscella neous Sendouts Perfluoroo ctanesulfo winnie Acid LC 2.2 ng/mL 05/11 Result Comment: Reporting Limit: 0.50 ng/mL Synonym(s): PFOS Population reference interval derived from [facility] data (n=151) is usually less than 12 ng/mL (90% CI, 7.7-15 ng/mL) (97.5th percentile) General [place] population from [facility] () (y=8146) for the linear isomer is typically below 13 ng/mL (95% CI, 10-18 ng/mL) (95th percentile) Analysis by High Performance Liquid Chromatogra phy/ Tandem Mass Spectrometr y (LC-MS/MS) This test was developed and its performance characteris tics determined by [facility]. It has not been cleared or approved by the US Food and Drug Administrat ion. Performed At: [address] [id number] Shankar Spring PhD Ph:[phone] 49 AF [facility] Vital Signs Combined list of inpatient and outpatient Vital Signs from Department of Defense and Veterans Affairs, ranging from 12 months to all on record, depending upon the facility. Vital Sign Value Date Comments Source SYSTOLIC BLOOD PRESSURE 110 02/26/2024 15:07:17 [place] DIASTOLIC BLOOD PRESSURE 71 02/26/2024 15:07:17 [place] PULSE OXIMETRY 98 02/26/2024 15:07:17 [place] WEIGHT 277 02/26/2024 15:07:17 [place] BMI 34 kg/m2 02/26/2024 15:07:17 [place] PAIN 0 02/26/2024 15:07:17 [place] HEIGHT 76 02/26/2024 15:07:17 [place] TEMPERATURE 96.9 02/26/2024 15:07:17 [place] PULSE 76 02/26/2024 15:07:17 [place] RESPIRATION 20 02/26/2024 15:07:17 [place] SYSTOLIC BLOOD PRESSURE 99 10/19/2023 09:51:55 [place] DIASTOLIC BLOOD PRESSURE 62 10/19/2023 09:51:55 [place] PULSE OXIMETRY 96 10/19/2023 09:51:55 [place] WEIGHT 227.2 10/19/2023 09:51:55 [place] BMI 28 kg/m2 10/19/2023 09:51:55 [place] TEMPERATURE 97.9 10/19/2023 09:51:55 [place] PULSE 88 10/19/2023 09:51:55 [place] SYSTOLIC BLOOD PRESSURE 112 08/17/2023 08:57:31 [place] DIASTOLIC BLOOD PRESSURE 68 08/17/2023 08:57:31 [place] PULSE OXIMETRY 98 08/17/2023 08:57:31 [place] 280 08/17/2023 08:57:31 [place] BMI 34 kg/m2 08/17/2023 08:57:31 [place] PAIN 5 08/17/2023 08:57:31 [place] HEIGHT 76 08/17/2023 08:57:31 [place] TEMPERATURE 97.4 08/17/2023 08:57:31 [place] PULSE 84 08/17/2023 08:57:31 [place] RESPIRATION 16 08/17/2023 08:57:31 [place] Encounters Combined list of: 1) Encounters from Department of Veterans Affairs facilities going backup to the last 18 months, not all VA inpatient encounters are included; 2) Encounters from the Department of Defense facilities going backup to 280 months. Location Location Details Encounter Type Encounter Number Reason For Visit Attending Provider ADM Date DC Date Status Disposition [place] [facility] [place] [address](LEXIE Rios) OUTPATIENT [id number] Notes Entered by: NANCI SANTOS 26 Feb [id number] ------- ------- ------- ------- -- COLD PACK EVA BERRY Ita 02/26 Released w/o Limitations [facility] [place] [address](Ita Rios) [facility] [place] [address](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 ALEXIA CBOB 03/25 Released w/o Limitations [facility] [address]([facility] [employer] [facility] Danny Ramsey d) Theater Facility OUTPATIENT [id number] Theater Provider 09/12 Released w/o Limitations [facility] OUTPATIENT [id number] 1 Theater Provider 10/01 Released w/o Limitations [facility] OUTPATIENT [id number] Theater Provider 10/08 Released w/o Limitations [facility] OUTPATIENT [id number] 0 Theater Provider 10/16 Released w/o Limitations [facility] OUTPATIENT [id number] 3 Theater Provider 12/08 Released w/o Limitations Theater Facilit [facility] Outpatient Encounter [id number] 02/27 [place] [facility] [place] [facility] [place] Outpatient Encounter [id number] 06/21 [facility] [place] [facility] [place] OFF[place] 40 MIN [id number] Diagnos is: ICD-10- CM N52.9 Male erectil e dysfunc tion, unspeci fied ADRIANA,DA VID A 08/16 [place] PSYCH DIAGNOSTIC EVALUATION [id number] Diagnos is: ICD-10- CM F33.2 Major depress v disorde r, recurre nt severe w/o psych feature s WILEY REY 09/03 [place] [facility] Outpatient Encounter [id number] 09/07 [place] [facility] [place] [facility] [place] [facility] IMMUNIZATI ON ADMIN [id number] ERICH WRIGHT VID A 10/18 [facility] [place] [facility] [facility] OFFICE O/P EST LOW 20 MIN [id number] Diagnos is: ICD-10- CM M54.50 Low back pain, unspeci fied ERICH WRIGHT VID A 10/18 [place] [facility] Outpatient Encounter [id number] 1.11/27 [place] [facility] [place] [facility] [id number] AMDS Between Visit [id number] 12/03 Discharge Disposition: Home or Self Care [id number] AMDS [facility] [place] Outpatient Encounter 1.12/18 [place] [facility] [place] [facility] QNHP OL DIG ASSMT&MGMT 5-10 [id number] Diagnos is: ICD-10- CM Z51.81 Encount er for therape utic drug level monitor NINFA Queen A 12/20 [facility] [place] [facility] Outpatient Encounter [id number] 01/22 [place] [facility] [place] [place] [facility] [place] [facility] Outpatient Encounter [id number] 01/31 [place] [facility] [place] [place] [facility] [place] [facility] Outpatient Encounter [id number] 1. Diagnos is: ICD-10- CM F32.9 Major depress bailey disorde r, single episode , unspeci fied EVA SALGUERO E 01/31 [facility] [place] [facility] OFFICE O/P EST MOD 30 MIN [id number] Diagnos is: ICD-10- CM N52.9 Male erectil e dysfunc tion, unspeci fied WRIGHT,DA VID A 02/25 [place] [facility] [place] [facility] Outpatient Encounter [id number] 03/11 [place] [facility] [place] [facility] [place] [facility] Outpatient Encounter [id number] 03/16 [place] [facility] [place] [facility] [facility] Outpatient Encounter [id number] 04/04 [place] [facility] [place] 60 [id number] Diagnos is: ICD-10- CM F43.12 Post-tr aumatic stress disorde r, chronic NAHOMY,KAMOLI KA 04/19 [facility] [place] [facility] [place] [facility] Outpatient Encounter [id number] 04/19 [place] [facility] [facility] Procedures Combined list of: 1) Procedures from Department of Veterans Affairs facilities going back up to thelast 18 months, not all [place] non-surgical procedures are included; 2) All procedures from the Department of Defense facilities. Procedure Procedure Type Code Date Perfomer Comments [facility] e Spirometry Spirometry 18366 03/25/19 14 ALEXIA COBB [facility] Extensive Color Vision Testing Extensive Color Vision Testing 53029 03/25/19 ALEXIA KYLE Screening Test Of Visual Acuity, Quantitative, Bilateral Screening Test Of Visual Acuity, Quantitative, Bilateral 06781 03/25/19 14 ALEXIA COBB [facility] ECG 12-Lead With Interpretation And Report ECG 12-Lead With Interpretation And Report [id number] 03/25/19 14 ALEXIA COBB [facility] SPIROMETRY, INCLUDING GRAPHIC RECORD, TOTAL AND TIMED VITAL CAPACITY, EXPIRATORY FLOW RATE MEASUREMENT(S), WITH OR WITHOUT MAXIMAL VOLUNTARY VENTILATION 03/25/19 14 [facility] THERAPEUTIC, PROPHYLACTIC, OR DIAGNOSTIC INJECTION (SPECIFY SUBSTANCE OR DRUG); SUBCUTANEOUS OR INTRAMUSCULAR 03/05/19 14 [facility] No data available for this section Ambulato ry Pharmacy Social History Combined list of available smoking, tobacco, and other social history from Department of Defense and Veterans Affairs facilities. Social History Type Response Date Comment Sour e Tobacco smoking status [facility] NEVER USED 08/17/19 24 [place] This section is an empty soc ial [...] Plan No data available for this section 04/19/2024 Ambulatory Pharmacy Plan of Care List of future care activities from Department of Veterans Affairs facilities. Additional future care activities may be listed in the Assessment and Plan section. Date/Time Care Activity Care Activity Detail Facili ty 04/19/2024 AMBULATORY - PSYCHIATRY AMBULATORY - PSYC [facility] [place] [facility] 05/13/2024 AMBULATORY - MEDICINE AMBULATORY - MEDICI [place] 04/08/2024 Consult Order [facility] Cons Continuous [employer] Pick[employer] Helper's Choice [place] Functional Status Combined list of recent functional and cognitive assessments recorded at Department of Defense and Veterans Affairs ([place] Functional [place] Measurement (FIM) Scale: 1 = Total Assistance (Subject = 0% +), 2 = Maximal Assistance (Subject = 25% +), 3 = Moderate Assistance (Subject = 50% +), 4 = Minimal Assistance (Subject = 75% +), 5 = Supervision, 6 = Modified [place] (Device), 7 = Complete [place] (Timely, Safely). Assessment Date/Time Source Assessment Type Assessment Skill Assessment Score Assessment Details No data available for this section
--- OUTSIDE RECORDS SUMMARY | 2024-04-19 13:26 | XMS_ITS | Clinical Summary ---
Author Organization [facility] Address [address] [place] [address] Care Team Providers Care Shield Operator Name Role Phone Pcp, No Primary Care Provider Unavailabl e Social History Tobacco Use Types Packs/Day Years Used Date Smoking Tobacco: Never Assessed Sex and Gender Information Value Date Recorded Sex Assigned at Not on file Legal Sex Male 9:43 AM EST Gender Identity Not on file Sexual Orientation Not on file Plan of Treatment Health Maintenance Due Date Last Done Comments Hepatitis C Screening 1985 Lipid Panel 1985 Annual Physical Exam 08/30/2003 Tdap and Td Vaccines Adult 2004 COVID-19 Vaccine ( - 2023-2 5 season) 2023 Influenza Vaccine (#1) 2023 HIB Vaccines Aged Out No longer eligi ble based on patient's age to complete this topic HPV Vaccines Aged Out No longer eligi ble based on patient's age to complete this topic Hepatitis A Vaccines Aged Out No long er eligible based on patient's age to complete this topic IPV Vaccines Aged Out No longer eligi ble based on patient's age to complete this topic Meningococcal Vaccine Aged Out No richie dario eligible based on patient's age to complete this topic Pneumococcal Vaccine: Peds ( 0 to 5 Yrs) and At-Risk Pts (6 to 49 Yrs) Aged Out No lo nger eligible based on patient's age to complete this topic RSV <20 Months Aged Out No longer annabel gible based on patient's age to complete this topic Insurance [employer] [address] [place] [address] Care Teams Shield Operator Relationship Specialty Start Date End Date Pcp, [place] [address] PCP - General 04/25/23
== END 2024-04-19 14:07 | disposition home or self-care (01) ==
PROVIDERS: PCP Family Medicine; Visit Provider Physician Assistant
DX: L30.9 Dermatitis, unspecified (principal)

== ENCOUNTER 2024-04-19 12:58 | Outpatient (REF) | payer OTHER, SELFPAY ==
--- OUTSIDE RECORDS SUMMARY | 2024-04-19 17:28 | XMS_ITS | Encounter Summary ---
Author Organization [facility] Address [address] [place] [address] Care Team Providers Care Help Desk Administrator Name Role Phone Pcp, No Primary Care Provider Unavailabl e Reason for Referral * Imaging (Routine) - Authorized Specialty Diagnoses / Procedures Referred By Contac t Referred To Contact Radiology Diagnoses Chronic sinusitis, unspecified Procedures XR SINUSES 4 VIEWS Keli Ferrera NP [address] [place] [address] Phone: tel: fax: [facility]iology - Central Scheduling [place] Phone: tel: fax: Referral ID Status Reason Start Date Expiration Date Visits Requested Visits Authorized [id number] Authorized Perform Procedure 04/25/2023 04/24/2024 1 1 Encounter Details Date Type Department Care Team ([facility] st Contact Info) Description 04/25/2023 Ancillary Orders [facility], Outpatient Center (Diag Rad) [address] [facility] [place] [address] Keli Ferrera NP [address] [place] [address] Chronic sinusitis, unspecified (Primary Dx) Social History [...] clear but see comments above. Keli Ferrera PLEATER IMG XR PROCEDURES Final R esult documented in this encounter Visit Diagnoses Diagnosis Chronic sinusitis, unspecified- Primary Chronic sinusitis, unspecified documented in this encounter Care Teams Help Desk Administrator Relationship Specialty Start Date End Date Pcp, [place] [address] PCP - General 04/25/23 documented as of this encounter
--- OUTSIDE RECORDS SUMMARY | 2024-04-19 17:28 | XMS_ITS | Clinical Summary ---
Author Organization [facility] Address [address] [place] [address] Care Team Providers Care Chief I Dispatcher Name Role Phone Pcp, No Primary Care [...] complete this topic Insurance [employer] [address] [place] [address] Care Teams Chief I Dispatcher Relationship Specialty Start Date End Date Pcp, [place] [address] PCP - General 04/25/23
--- OUTSIDE RECORDS SUMMARY | 2024-04-19 17:28 | XMS_ITS | Continuity of Care Document ---
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 It does not include entries that were removed or entered in error. Problem Status Onset Date Problem Type Date of Resolution Comments Source Unspecified contact dermatitis, unspecified cause Inactive 12/09/19 Condition DoD ASSESSMENT, POST DEPLOYMENT, DOCUMENTED ON DN3925 (PDHRA) Inactive 12/09/19 Condition DoD Low back pain Inactive 10/17/19 20 Condition DoD Pain in left knee Inactive 10/09/19 20 Condition DoD Encounter for other administrative examinations Active 09/13/19 20 Condition [facility] Preventive Medicine New Patient Evaluation Adult 18-39 Years Inactive 03/25/19 14 Condition DoD visit for: administrative purpose Inactive 02/27/20 13 Condition [facility] visit for: services flight physical Active Condition [...] 2023 Entered By: MADISON WRIGHT Comment: Dermatology[facility] Diagnosis: ICD-10-CM F43.12 Post-traumatic stress disorder, chronic Active Diagnosis [facility] Diagnosis: ICD-10-CM N52.9 Male erectile dysfunction, unspecified Active Diagnosis [place] Diagnosis: ICD-10-CM F32.9 Major depressive disorder, single episode, unspecified Active Diagnosis [facility] [place] [facility] Diagnosis: ICD-10-CM Z51.81 Encounter for therapeutic drug level monitoring Active Diagnosis [facility] Diagnosis: ICD-10-CM M54.50 Low back pain, unspecified Active Diagnosis [place] Diagnosis: ICD-10-CM 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, recurrent severe w/o psych features Active Diagnosis [place] Medications Combined list of outpatient medications from [...] FOR DEPRESSI ON AND ANXIETY Active 08/17/2024 [id number] MADISON WRIGHT 2023 45 [facility] CITALOPRAM HYDROBROMID E 40MG TAB TAKE ONE-HALF TABLET BY MOUTH ONCE DAILY FOR DEPRESSI ON AND ANXIETY ORAL ACTIVE 10/19/2024 [id number] 5 Wyatt WRIGHT A 2023 45 [place] CITALOPRAM HYDROBROMID E 40MG TAB TAKE ONE-HALF TABLET BY MOUTH ONCE DAILY FOR DEPRESSI ON AND ANXIETY ORAL DISCONT INUED 08/17/2024 [id number] 4 Wyatt WRIGHT A 2023 45 [place] CYCLOBENZAP RINE (U/D) 10 MG ORAL TAB TAKE ONE TABLET BY MOUTH THREE TIMES DAILY NEEDED FOR MUSCLE SPASM 09/16/2023 [id number] 4 MADISON WRIGHT A 2023 30 [facility] CYCLOBENZAP RINE HCL 10MG TAB TAKE ONE TABLET BY MOUTH THREE TIMES DAILY NEEDED FOR MUSCLE SPASM ORAL 09/16/2023 [id number] 4 Wyatt WRIGHT A 2023 30 [place] sildenafiL 50 MG ORAL TAB TAKE ONE TABLET BY MOUTH NEEDED FOR ERECTILE DYSFUNCT ION TAKE 1 HOUR PRIOR TO SEXUAL ACTIVITY 11/15/2023 [id number] 4 MADISON WRIGHT A 2023 18 [facility] SILDENAFIL CITRATE 100MG TAB TAKE ONE-HALF TABLET BY MOUTH DIRECTED BY PROVIDER TAKE 1 HOUR PRIOR TO SEXUAL ACTIVITY ORAL DISCONT INUED BY PROVIDE R 04/12/2025 [id number] 5 KASSI STACY 2024 18 [place] SILDENAFIL CITRATE 100MG TAB TAKE ONE TABLET BY MOUTH NEEDED FOR ERECTILE DYSFUNCT ION TAKE 1 HOUR PRIOR TO SEXUAL ACTIVITY ORAL DISCONT INUED 10/19/2024 [id number] 4 Wyatt WRIGHTD A 2023 18 [place] SILDENAFIL CITRATE 50MG TAB TAKE ONE TABLET BY MOUTH NEEDED FOR ERECTILE DYSFUNCT ION TAKE 1 HOUR PRIOR TO SEXUAL ACTIVITY ORAL DISCONT INUED (EDIT) 11/15/2023 [id number] 4 Wyatt WRIGHT A 2023 18 [place] TADALAFIL 20MG TAB TAKE ONE TABLET BY MOUTH NEEDED ORAL ACTIVE 12/19/2024 [id number] 5 SHELLY COOPER 2023 18 [place] Allergies, Adverse Reactions, Alerts Combined list of allergies from Department of Defense and Veterans Affairs facilities. It does not include entries that were removed or entered in error. Substance Category Reaction Severity Reaction type Status Date Reported Comments Source No Known Allergies Drug allergy (disorder) active 02/26/2013 [place] [address] Immunizations Combined list of available immunizations from the Department of Defense and Veterans Affairs facilities. Immunization Series Date Given Administered By Site Reaction Lot Number CVX Code Drug Clinical Transplant Coordinator Status Comments Source influenza virus vaccine, unspecified 2023 MORENA MICHELLE Shoul aries, left (delt oid) [id number] Seqirus complet ed influenza virus [...] ory Pharmac y COVID Vaccine Moderna 2020 [id number] complet ed COVID Vaccine Moderna 02/26/21 Given Ambulat ory Pharmac y influenza virus vaccine, inactivated 2020 [id number] Seqirus complet ed influenza virus vaccine, inactivat ed 01/02/21 Given Ambulat ory Pharmac y COVID Vaccine Moderna 2020 [id number] complet ed COVID Vaccine Moderna 03/22/20 Given Ambulat ory Pharmac y influenza, injectable, quadrivalent- pf 2019 [id number] GlaxoSmithKli ne complet ed influenza , injectabl e, quadrival ent-pf 02/14/20 Given Ambulat ory Pharmac y anthrax vaccine 2019 [id number] Emergent Biosolutions complet ed anthrax vaccine 09/27/19 Given Ambulat ory Pharmac y typhoid Vi capsular polysaccharid e vac 2019 [id number] sanofi pasteur complet ed typhoid Vi capsular polysacch aride vac 04/25/19 Given Ambulat ory Pharmac y anthrax vaccine 2019 [id number] [employer] complet ed anthrax vaccine 04/25/19 Given Ambulat ory Pharmac y influenza, injectable, quadrivalent- pf 2017 [id number] Seqirus complet ed influenza , injectabl e, quadrival ent-pf 12/31/17 Given Ambulat ory Pharmac y influenza virus vaccine, inactivated 2016 [id number] Seqirus complet ed influenza virus vaccine, inactivat ed 11/19/16 Given Ambulat ory Pharmac y influenza, seasonal, injectable-pf 2015 [id number] CSL Behring complet ed influenza , seasonal, injectabl e-pf 01/03/16 Given Ambulat ory Pharmac y influenza, seasonal, injectable-pf 2014 [id number] 140 CSL Behring complet ed influenza , [...] ory Pharmac y meningococcal A,C,Y,W-135 (MCV4P) 2012 [id number] sanofi pasteur complet ed meningoco ccal A,C,Y,W-1 35 (MCV4P) 02/15/13 Given Ambulat ory Pharmac y influenza, seasonal, injectable-pf 2012 [id number] 140 Novartis Pharmaceutica ls complet ed influenza , seasonal, injectabl e-pf 02/15/13 Given Ambulat ory Pharmac y adenovirus vaccine, live 2012 [id number] Teva Pharmaceutica ls complet ed adenoviru s vaccine, live 02/15/13 Given Ambulat ory Pharmac y Results Combined list of recent chemistry, hematology and other laboratory results from Department of Defense and Veterans Affairs, ranging from 15 months to all on record, depending upon the facility. Order Name Results Value Reference Range Date Interpretation Specimen Comments Source BASIC METABOLI C PANEL (non-fas ting) UREA NITROGEN [MASS/VOLU ME] IN SERUM OR PLASMA 21 mg/dL 7 - 25 08/16 Specimen Type: SERUM Comment: Hemolysis present analysis cannot be performed. Hemolysis present may falsly elevate Potassium Total and Direct Bili, Iron, AST, %Fe. Ordering Provider: ALISSON WRIGHT A Report Released Date/Time: Aug 17, 2023 10:07 AM Reporting Lab: [facility] [address] [address] Performing Lab: [address] [address] [place] BASIC METABOLI C PANEL (non-fas ting) GLUCOSE [MASS/VOLU ME] IN SERUM OR PLASMA 82 mg/dL 65 - 100 08/16 Specimen Type: SERUM Comment: Hemolysis present analysis cannot be performed. Hemolysis present may falsly elevate Potassium Total and Direct Bili, Iron, AST, %Fe. Ordering Provider: ALISSON WRIGHT A Report Released Date/Time: Aug 17, 2023 10:07 AM Reporting Lab: [address] [address] Performing Lab: [address] [address] [place] BASIC METABOLI C PANEL (non-fas ting) SODIUM [MOLES/VOL UME] IN SERUM OR PLASMA 139 mmol/L 135 - 145 08/16 Specimen Type: SERUM Comment: Hemolysis present analysis cannot be performed. Hemolysis present may falsly elevate Potassium Total and Direct Bili, Iron, AST, %Fe. Ordering Provider: ALISSON WRIGHT A Report Released Date/Time: Aug 17, 2023 10:07 AM Reporting Lab: [address] [address] Performing Lab: [address] [address] [place] BASIC METABOLI C PANEL (non-fas ting) POTASSIUM [MOLES/VOL UME] IN SERUM OR PLASMA 4.3 mmol/L 3.5 - 5.0 08/16 Specimen Type: SERUM Comment: Hemolysis present analysis cannot be performed. Hemolysis present may falsly elevate Potassium Total and Direct Bili, Iron, AST, %Fe. Ordering Provider: ALISSON WRIGHT A Report Released Date/Time: Aug 17, 2023 10:07 AM Reporting Lab: [address] [address] Performing Lab: [address] [address] [place] BASIC METABOLI C PANEL (non-fas ting) CHLORIDE [MOLES/VOL UME] IN SERUM OR PLASMA 105 mmol/L 100 - 110 08/16 Specimen Type: SERUM Comment: Hemolysis present analysis cannot be performed. Hemolysis present may falsly elevate Potassium Total and Direct Bili, Iron, AST, %Fe. Ordering Provider: ALISSON WRIGHT A Report Released Date/Time: Aug 17, 2023 10:07 AM Reporting Lab: [address] [address] Performing Lab: [address] [address] [place] BASIC METABOLI C PANEL (non-fas ting) CARBON DIOXIDE, TOTAL [MOLES/VOL UME] IN SERUM OR PLASMA 24 meq/L 20 - 30 08/16 Specimen Type: SERUM Comment: Hemolysis present analysis cannot be performed. Hemolysis present may falsly elevate Potassium Total and Direct Bili, Iron, AST, %Fe. Ordering Provider: ALISSON WRIGHT A Report Released Date/Time: Aug 17, 2023 10:07 AM Reporting Lab: [address] [address] Performing Lab: [address] [address] [place] BASIC METABOLI C PANEL (non-fas ting) CREATININE [MASS/VOLU ME] IN SERUM OR PLASMA 1.13 mg/dL 0.50 - 1.40 08/16 Specimen Type: SERUM Comment: Hemolysis present analysis cannot be performed. Hemolysis present may falsly elevate Potassium Total and Direct Bili, Iron, AST, %Fe. Ordering Provider: ALISSON WRIGHT A Report Released Date/Time: Aug 17, 2023 10:07 AM Reporting [facility] [address] [address] Performing Lab: [facility] [address] [address] [place] BASIC METABOLI C PANEL (non-fas ting) GLOMERULAR [...] Aug 17, 2023 10:07 AM Reporting Lab: [address] [address] Performing Lab: [address] [address] [place] CBC AND DIFF (AUTO) LEUKOCYTES [#/VOLUME] IN BLOOD BY AUTOMATED COUNT 6.79 10*3/uL 4.50 - 11.00 08/16 Specimen Type: BLOOD No comment entered. Ordering Provider: ALISSON WRIGHT A Report Released Date/Time: Aug 17, 2023 10:07 AM Reporting Lab: [address] [address] Performing Lab: [address] [address] [place] CBC AND DIFF (AUTO) ERYTHROCYT ES [#/VOLUME] IN BLOOD BY AUTOMATED COUNT 5.04 10*6/uL 4.23 - 5.66 08/16 Specimen Type: BLOOD No comment entered. Ordering Provider: ALISSON WRIGHT A Report Released Date/Time: Aug 17, 2023 10:07 AM Reporting Lab: [facility] [address] [address] Performing Lab: [address] [address] [place] CBC AND DIFF (AUTO) HEMOGLOBIN [MASS/VOLU ME] IN BLOOD 15.4 g/dL 12.8 - 17 08/16 Specimen Type: BLOOD No comment entered. Ordering Provider: ALISSON WRIGHT A Report Released Date/Time: Aug 17, 2023 10:07 AM Reporting Lab: [facility] [address] [facility] [address] Performing Lab: [facility] [address] [address] [place] CBC AND DIFF (AUTO) HEMATOCRIT [VOLUME FRACTION] OF BLOOD BY AUTOMATED COUNT 45.1 39.2 - 50.4 08/16 Specimen Type: BLOOD No comment entered. Ordering Provider: ALISSON WRIGHT A Report Released Date/Time: Aug 17, 2023 10:07 AM Reporting Lab: [facility] [address] [address] Performing Lab: [facility] [address] [place] CBC AND DIFF (AUTO) MCV [ENTITIC VOLUME] BY AUTOMATED COUNT 89.5 fL 82 - 99 08/16 Specimen Type: BLOOD No comment entered. Ordering Provider: ALISSON WRIGHT A Report Released Date/Time: Aug 17, 2023 10:07 AM Reporting Lab: [facility] [address] [address] Performing Lab: [facility] [address] [place] CBC AND DIFF (AUTO) MCHC [MASS/VOLU ME] BY AUTOMATED COUNT 34.1 g/dL 30.8 - 35.1 08/16 Specimen Type: BLOOD No comment entered. Ordering Provider: ALISSON WRIGHT A Report Released Date/Time: Aug 17, 2023 10:07 AM Reporting Lab: [facility] [address] [address] Performing Lab: [facility]ENTERUSE[address] [address] [place] CBC AND DIFF (AUTO) PLATELETS [#/VOLUME] IN BLOOD BY AUTOMATED COUNT 304 10*3/uL 140 - 360 08/16 Specimen Type: BLOOD No comment entered. Ordering Provider: ALISSON WRIGHT A Report Released Date/Time: Aug 17, 2023 10:07 AM Reporting Lab: [facility] [place] [facility] [address] [address] Performing Lab: [facility] [address] [address] [place] CBC AND DIFF (AUTO) ERYTHROCYT E DISTRIBUTI ON WIDTH [RATIO] BY AUTOMATED COUNT 13.5 12.0 - 16.0 08/16 Specimen Type: BLOOD No comment entered. Ordering Provider: ALISSON WRIGHT A Report Released Date/Time: Aug 17, 2023 10:07 AM Reporting Lab: [facility] [address] [address] Performing Lab: [facility] [address] [address] [place] CBC AND DIFF (AUTO) MONOCYTES [#/VOLUME] IN BLOOD BY AUTOMATED COUNT 0.56 10*3/uL 0.30 - 1.10 08/16 Specimen Type: BLOOD No comment entered. Ordering Provider: ALISSON WRIGHT A Report Released Date/Time: Aug 17, 2023 10:07 AM Reporting Lab: [facility] [place] [address] [address] Performing Lab: [facility] [place] [address] [address] [place] CBC AND DIFF (AUTO) MCH [ENTITIC MASS] BY AUTOMATED COUNT 30.6 pg 26.2 - 32.6 08/16 Specimen Type: BLOOD No comment entered. Ordering Provider: ALISSON WRIGHT A Report Released Date/Time: Aug 17, 2023 10:07 AM Reporting Lab: [facility] [address] [address] Performing Lab: [facility]ENTER[facility] [address] [place] CBC AND DIFF (AUTO) NEUTROPHIL S/100 LEUKOCYTES IN BLOOD BY AUTOMATED COUNT 51.9 43.7 - 75.8 08/16 Specimen Type: BLOOD No comment entered. Ordering Provider: ALISSON WRIGHT A Report Released Date/Time: Aug 17, 2023 10:07 AM Reporting Lab: [facility] [place] [facility] [address] [address] Performing Lab: [facility] [place] [address] [address] [place] CBC AND DIFF (AUTO) LYMPHOCYTE S/100 LEUKOCYTES IN BLOOD BY AUTOMATED COUNT 33.9 14.0 - 42.3 08/16 Specimen Type: BLOOD No comment entered. Ordering Provider: ALISSON WRIGHT A Report Released Date/Time: Aug 17, 2023 10:07 AM Reporting Lab: [facility] [address] [address] Performing Lab: [facility] [address] [address] [place] CBC AND DIFF (AUTO) MONOCYTES/ 100 LEUKOCYTES IN BLOOD BY AUTOMATED COUNT 8.2 5.1 - 13.7 08/16 Specimen Type: BLOOD No comment entered. Ordering Provider: ALISSON WRIGHT A Report Released Date/Time: Aug 17, 2023 10:07 AM Reporting Lab: [facility] [place] [address] [address] Performing Lab: [facility] [address] [address] [place] CBC AND DIFF (AUTO) EOSINOPHIL S/100 LEUKOCYTES IN BLOOD BY AUTOMATED COUNT 4.6 0.4 - 6.8 08/16 Specimen Type: BLOOD No comment entered. Ordering Provider: ALISSON WRIGHT A Report Released Date/Time: Aug 17, 2023 10:07 AM Reporting Lab: [facility] [place] [address] [address] Performing Lab: [facility] [address] [address] [place] CBC AND DIFF (AUTO) BASOPHILS/ 100 LEUKOCYTES IN BLOOD BY AUTOMATED COUNT 0.7 0.1 - 2.0 08/16 Specimen Type: BLOOD No comment entered. Ordering Provider: ALISSON WRIGHT A Report Released Date/Time: Aug 17, 2023 10:07 AM Reporting Lab: [facility] [address] [address] Performing Lab: [facility] [address] [address] [place] CBC AND DIFF (AUTO) NEUTROPHIL S [#/VOLUME] IN BLOOD BY AUTOMATED COUNT 3.52 10*3/uL 2.20 - 7.60 08/16 Specimen Type: BLOOD No comment entered. Ordering Provider: ALISSON WRIGHT A Report Released Date/Time: Aug 17, 2023 10:07 AM Reporting Lab: [facility] [address] [address] Performing Lab: [facility] [address] [address] [place] CBC AND DIFF (AUTO) LYMPHOCYTE S [#/VOLUME] IN BLOOD BY AUTOMATED COUNT 2.30 10*3/uL 1.00 - 3.20 08/16 Specimen Type: BLOOD No comment entered. Ordering Provider: ALISSON WRIGHT A Report Released Date/Time: Aug 17, 2023 10:07 AM Reporting Lab: [facility] [address] Performing Lab: [facility] [address] [address] [place] CBC AND DIFF (AUTO) EOSINOPHIL S [#/VOLUME] IN BLOOD BY AUTOMATED COUNT 0.31 10*3/uL 0.03 - 0.44 08/16 Specimen Type: BLOOD No comment entered. Ordering Provider: ALISSON WRIGHT A Report Released Date/Time: Aug 17, 2023 10:07 AM Reporting Lab: [facility] [address] [address] Performing Lab: [facility] [address] [place] CBC AND DIFF (AUTO) BASOPHILS [#/VOLUME] IN BLOOD BY AUTOMATED COUNT 0.05 10*3/uL 0.01 - 0.13 08/16 Specimen Type: BLOOD No comment entered. Ordering Provider: ALISSON WRIGHT A Report Released Date/Time: Aug 17, 2023 10:07 AM Reporting Lab: [facility] [address] [address] Performing Lab: [facility] [address] [address] [place] CBC AND DIFF (AUTO) IMMATURE GRANULOCYT ES/100 LEUKOCYTES IN BLOOD BY AUTOMATED COUNT 0.7 0.0 - 0.7 08/16 Specimen Type: BLOOD No comment entered. Ordering Provider: ALISSON WRIGHT A Report Released Date/Time: Aug 17, 2023 10:07 AM Reporting Lab: [address] [address] Performing Lab: [facility] [address] [address] [place] CBC AND DIFF (AUTO) IMMATURE GRANULOCYT ES [#/VOLUME] IN BLOOD 0.05 10*3/uL 0.00 - 0.06 08/16 Specimen Type: BLOOD No comment entered. Ordering Provider: ALISSON WRIGHT A Report Released Date/Time: Aug 17, 2023 10:07 AM Reporting Lab: [facility] [address] [address] Performing Lab: [facility] [address] [address] [place] CBC AND DIFF (AUTO) NRBC % 0.0 0.0 - 0.0 08/16 Specimen Type: BLOOD No comment entered. Ordering Provider: ALISSON WRIGHT A Report Released Date/Time: Aug 17, 2023 10:07 AM Reporting Lab: [facility] [address] [address] Performing Lab: [facility] [address] [address] [place] CBC AND DIFF (AUTO) NRBC, ABS 0.00 10*3/uL 0.00 - 0.00 08/16 Specimen Type: BLOOD No comment entered. Ordering Provider: ALISSON WRIGHT A Report Released Date/Time: Aug 17, 2023 10:07 AM Reporting Lab: [address] [address] Performing Lab: [address] [address] [place] HEPATITI S B SURFACE ANTIBODY (HBsAb)- HEPATITIS B VIRUS SURFACE AB [PRESENCE] IN SERUM BY IMMUNOASSA Y REACTIVE 08/16 Specimen Type: SERUM Comment: Hemolysis present analysis cannot be performed. Hemolysis present may falsly elevate Potassium Total and Direct Bili, Iron, AST, %Fe. Ordering Provider: ALISSON WRIGHT A Report Released Date/Time: Aug 17, 2023 10:07 AM Reporting Lab: [address] [address] Performing Lab: [address] [address] [place] HEPATITI S B SURFACE ANTIGEN (HBsAg)- HEPATITIS [...] Aug 17, 2023 10:07 AM Reporting Lab: [address] [address] Performing Lab: [address] [address] [place] HEPATITI S C ANTIBODY (HCV)-AR C HEPATITIS C VIRUS AB [PRESENCE] IN SERUM NON-REAC TIVE 08/16 Specimen Type: SERUM Comment: Hep C Ab: No HCV antibody detected. If recent infection is suspected or other evidence suggests HCV infection, consider HCV nucleic acid testing Ordering Provider: ALISSON WRIGHT A Report Released Date/Time: Aug 17, 2023 10:07 AM Reporting Lab: [address] [address] Performing Lab: [address] [address] [place] HIV 1&2 Ag/Ab SCREEN HIV 1+2 AB+HIV1 P24 AG [PRESENCE] IN SERUM OR PLASMA BY IMMUNOASSA Y NON-REAC TIVE 08/16 Specimen Type: SERUM No comment entered. Ordering Provider: ALISSON WRIGHT A Report Released Date/Time: Aug 17, 2023 10:07 AM Reporting Lab: [address] [address] Performing Lab: [address] [address] [place] LIVER FUNCTION PROTEIN [MASS/VOLU ME] IN SERUM OR PLASMA 7.0 g/dL 6.0 - 8.3 08/16 Specimen Type: SERUM Comment: Hemolysis present analysis cannot be performed. Hemolysis present may falsly elevate Potassium Total and Direct Bili, Iron, AST, %Fe. Ordering Provider: ALISSON WRIGHT A Report Released Date/Time: Aug 17, 2023 10:07 AM Reporting Lab: [address] [address] Performing Lab: [address] [address] [place]IVER FUNCTION ALBUMIN [MASS/VOLU ME] IN SERUM OR PLASMA 4.0 g/dL 3.5 - 5.0 08/16 Specimen Type: SERUM Comment: Hemolysis present analysis cannot be performed. Hemolysis present may falsly elevate Potassium Total and Direct Bili, Iron, AST, %Fe. Ordering Provider: ALISSON WRIGHT A Report Released Date/Time: Aug 17, 2023 10:07 AM Reporting Lab: [address] [address] Performing Lab: [facility] [address] [facility] [address] [place] FUN[place] ALKALINE PHOSPHATAS E [ENZYMATIC ACTIVITY/V OLUME] IN SERUM OR PLASMA 55 U/L 40 - 150 08/16 Specimen Type: SERUM Comment: Hemolysis present analysis cannot be performed. Hemolysis present may falsly elevate Potassium Total and Direct Bili, Iron, AST, %Fe. Ordering Provider: ALISSON WRIGHT A Report Released Date/Time: Aug 17, 2023 10:07 AM Reporting Lab: [facility] [address] [address] Performing Lab: [address] [address] [facility] LIVER FUNCTION ASPARTATE AMINOTRANS FERASE [ENZYMATIC ACTIVITY/V OLUME] IN SERUM OR PLASMA 35 U/L 5 - 34 08/16 H Specimen Type: SERUM Comment: Hemolysis present analysis cannot be performed. Hemolysis present may falsly elevate Potassium Total and Direct Bili, Iron, AST, %Fe. Ordering Provider: ALISSON WRIGHT A Report Released Date/Time: Aug 17, 2023 10:07 AM Reporting Lab: [address] [address] Performing Lab: [address] [address] [facility] LIVER FUNCTION ALANINE AMINOTRANS FERASE [ENZYMATIC ACTIVITY/V OLUME] IN SERUM OR PLASMA 27 U/L 08/16 Specimen Type: SERUM Comment: Hemolysis present analysis cannot be performed. Hemolysis present may falsly elevate Potassium Total and Direct Bili, Iron, AST, %Fe. Ordering Provider: ALISSON WRIGHT A Report Released Date/Time: Aug 17, 2023 10:07 AM Reporting Lab: [address] [address] Performing Lab: [address] [address] [facility] LIVER FUNCTION BILIRUBIN. TOTAL [MASS/VOLU ME] IN SERUM OR PLASMA commentm g/dL 0.2 - 1.2 08/16 Specimen Type: SERUM Comment: Hemolysis present analysis cannot be performed. Hemolysis present may falsly elevate Potassium Total and Direct Bili, Iron, AST, %Fe. Ordering Provider: ALISSON WRIGHT A Report Released Date/Time: Aug 17, 2023 10:07 AM Reporting Lab: [facility] [address] [facility] [address] Performing Lab: [facility] [address] [facility] [address] [place] MICROALB UMIN CREATINI NE RATIO PANEL MICROALBUM IN/CREATIN INE [MASS RATIO] IN URINE 3.7 mg/g 0 - 29.9 08/16 Specimen Type: URINE No comment entered. Ordering Provider: ALISSON WRIGHT A Report Released Date/Time: Aug 17, 2023 10:07 AM Reporting Lab: [facility] [address] [address] Performing Lab: [place] [facility] [facility] [address] [address] [place] MICROALB UMIN CREATINI NE RATIO PANEL MICROALBUM IN [MASS/VOLU ME] IN URINE 1.0 mg/dL 08/16 Specimen Type: URINE No comment entered. Ordering Provider: ALISSON WRIGHT A Report Released Date/Time: Aug 17, 2023 10:07 AM Reporting Lab: [facility] [address] [address] Performing Lab: [place] [facility] [facility] [address] [address] [place] MICROALB UMIN CREATINI NE RATIO PANEL CREATININE [MASS/VOLU ME] IN URINE 267.12 mg/dL 08/16 Specimen Type: URINE No comment entered. Ordering Provider: ALISSON WRIGHT A Report Released Date/Time: Aug 17, 2023 10:07 AM Reporting Lab: [place] [facility] [place] [facility] [address] [address] Performing Lab: [facility] [address] [address] [place] TESTOSTE TERRI, TOTAL (WHV) TESTOSTERO NE [MASS/VOLU ME] IN SERUM OR PLASMA 412.10 ng/dL 220.00 - 892.00 08/16 Specimen Type: SERUM No comment entered. Ordering Provider: ALISSON WRIGHT A Report Released Date/Time: Aug 17, 2023 10:07 AM Reporting Lab: [facility] [address] [address] Performing Lab: [facility] [address] [facility] [place] URINALYS IS COLOR OF URINE Yellow 08/16 Specimen Type: URINE Comment: If Glucose = >500 and Ketones are positive, please alert the Physician. Ordering Provider: ALISSON WRIGHT A Report Released Date/Time: Aug 17, 2023 10:07 AM Reporting Lab: [address] [address] Performing Lab: [facility] [address] [address] [facility] URINALYS IS APPEARANCE OF URINE Clear 08/16 Specimen Type: URINE Comment: If Glucose = >500 and Ketones are positive, please alert the Physician. Ordering Provider: ALISSON WRIGHT A Report Released Date/Time: Aug 17, 2023 10:07 AM Reporting Lab: [address] [address] Performing Lab: [facility] [address] [address] [place] URINALYS IS GLUCOSE [MASS/VOLU ME] IN URINE NEGATIVE mg/dL 08/16 Specimen Type: URINE Comment: If Glucose = >500 and Ketones are positive, please alert the Physician. Ordering Provider: ALISSON WRIGHT A Report Released Date/Time: Aug 17, 2023 10:07 AM Reporting Lab: [facility] [address] [address] Performing Lab: [address] [address] [place] URINALYS IS KETONES [MASS/VOLU ME] IN URINE BY TEST STRIP NEGATIVE mg/dL 08/16 Specimen Type: URINE Comment: If Glucose = >500 and Ketones are positive, please alert the Physician. Ordering Provider: ALISSON WRIGHT A Report Released Date/Time: Aug 17, 2023 10:07 AM Reporting Lab: [address] [address] Performing Lab: [address] [address] [place] URINALYS IS ERYTHROCYT ES [PRESENCE] IN URINE SEDIMENT BY LIGHT MICROSCOPY NEGATIVE mg/dL 08/16 Specimen Type: URINE Comment: If Glucose = >500 and Ketones are positive, please alert the Physician. Ordering Provider: ALISSON WRIGHT A Report Released Date/Time: Aug 17, 2023 10:07 AM Reporting Lab: [address] [address] Performing Lab: [address] [address] [place] URINALYS IS PROTEIN [MASS/VOLU ME] IN URINE BY TEST STRIP NEGATIVE mg/dL 08/16 Specimen Type: URINE Comment: If Glucose = >500 and Ketones are positive, please alert the Physician. Ordering Provider: ALISSON WRIGHT A Report Released Date/Time: Aug 17, 2023 10:07 AM Reporting Lab: [address] [address] Performing Lab: [address] [address] [place] URINALYS IS NITRITE [PRESENCE] IN URINE NEGATIVE mg/dL 08/16 Specimen Type: URINE Comment: If Glucose = >500 and Ketones are positive, please alert the Physician. Ordering Provider: ALISSON WRIGHT A Report Released Date/Time: Aug 17, 2023 10:07 AM Reporting Lab: [address] [address] Performing Lab: [address] [address] [place] URINALYS IS BILIRUBIN. TOTAL [PRESENCE] IN URINE NEGATIVE mg/dL 08/16 Specimen Type: URINE Comment: If Glucose = >500 and Ketones are positive, please alert the Physician. Ordering Provider: ALISSON WRIGHT A Report Released Date/Time: Aug 17, 2023 10:07 AM Reporting Lab: [address] [address] Performing Lab: [address] [address] [place] URINALYS IS SPECIFIC GRAVITY OF URINE BY REFRACTOME TRY 1.037 1.016 - 1.022 08/16 H Specimen Type: URINE Comment: If Glucose = >500 and Ketones are positive, please alert the Physician. Ordering Provider: ALISSON WRIGHT A Report Released Date/Time: Aug 17, 2023 10:07 AM Reporting Lab: [address] [address] Performing Lab: [address] [address] [place] URINALYS IS PH OF URINE BY TEST STRIP 6.0 5.0 - 9.0 08/16 Specimen Type: URINE Comment: If Glucose = >500 and Ketones are positive, please alert the Physician. Ordering Provider: ALISSON WRIGHT A Report Released Date/Time: Aug 17, 2023 10:07 AM Reporting Lab: [address] [address] Performing Lab: [address] [address] [place] URINALYS IS UROBILINOG EN [MASS/VOLU ME] IN URINE BY TEST STRIP <2.0mg/d L <2.0 - 2.0 08/16 Specimen Type: URINE Comment: If Glucose = >500 and Ketones are positive, please alert the Physician. Ordering Provider: ALISSON WRIGHT A Report Released Date/Time: Aug 17, 2023 10:07 AM Reporting Lab: [address] [address] Performing Lab: [address] [address] [facility] URINALYS IS LEUKOCYTE ESTERASE [PRESENCE] IN URINE BY TEST STRIP NEGATIVE 08/16 Specimen Type: URINE Comment: If Glucose = >500 and Ketones are positive, please alert the Physician. Ordering Provider: ALISSON WRIGHT Report Released Date/Time: Aug 17, 2023 10:07 AM Reporting Lab: [address] [address] Performing Lab: [address] [address] [facility] Infectio us Disease HIV-1/O/2 Non-Reac tive 1 [...] Prevention' s HIV diagnostic algorithm. Refer to [facility] Lab Guide for additional information : [email or web address]. health.[facility]/ [email or web address]/EPIL ab/Pages/la b_guide.asp x Testing performed by [facility] ce. 5600A-[facility] EPILAB Miscella neous Sendouts Repository Sample Received (03/04/23 12:55 PM) 03/04 N [facility] EPILAB Miscella neous Sendouts Perfluorob utanesulfo winnie Acid LC None Detected 05/11 Result Comment: Reporting Limit: 0.050 ng/mL Synonym(s): PFBS Population reference interval derived from [facility] data (n=151) is usually less than 0.053 ng/mL (90% CI, <0.050-0.23 ng/mL) (97.5th percentile) General [place] population from [facility] () (g=6145) (isomers not described) is typically below 0.1 ng/mL (95th percentile) Analysis by [employer] Liquid Chromatogra phy/ Tandem Mass Spectrometr y (LC-MS/MS) EFFECTIVE June 27, 2022 [id number] Perfluoroak yl Substances, S/P will be made non-orderab le. [facility] offers order code [id number] PFAS Expanded, S/P. For further information , please contact your local [facility] Casimiro avalosArnol [id number] [facility] Pamelacella neous [place]outs Perfluoroh eptanoic Acid LC None Detected 05/11 Result Comment: Reporting Limit: 0.050 ng/mL Synonym(s): PFHpA Comment: Substance(s ) known to interfere with the identity and/or quantity of the reported result: Perfluorope ntanoic Acid (PFPeA); Perfluorohe xanoic Acid (PFPxA) Population reference interval derived from [facility] data (n=151) is usually less than 0.47 ng/mL (90% CI, 0.25-0.73 ng/mL) (97.5th percentile) General [place] population from [facility] () (i=9518) (isomers not described) is typically below 0.20 ng/mL (95% CI, 0.10-0.20 ng/mL) (95th percentile) Analysis by [employer] Liquid Chromatogra phy/ Tandem Mass Spectrometr y (LC-MS/MS) [id number] [facility] Miscella neous Sendouts Perfluoroh exanesulfo winnie Acid LC 1.2 ng/mL 05/11 Result Comment: Reporting Limit: 0.050 ng/mL Synonym(s): PFHxS Population reference interval derived from [facility] data (n=151) is usually less than 5.8 ng/mL (90% CI, 4.1-17 ng/mL) (97.5th percentile) General [place] population from [facility] () (d=4644) (isomers not described) is typically below 4.9 ng/mL (95% CI, 4.1-5.8 ng/mL) (95th percentile) Analysis by [employer] Liquid Chromatogra phy/ Tandem Mass Spectrometr y (LC-MS/MS) [id number] C-66th [facility] [place] [employer] Perfluoroo ctanoic Acid LC None Detected 05/11 Result Comment: Reporting Limit: 0.50 ng/mL Synonym(s): FC-143 Component; PFOA Population reference interval derived from [facility] data (n=151) is usually less than 4.1 ng/mL (90% CI, 3.3-8.0 ng/mL) (97.5th percentile) General [place] population from [facility] () (n=4189) for the linear isomer is typically below 4.1 ng/mL (95% CI, 3.8-4.6 ng/mL) (95th percentile) Occupationa l Exposures: Mean serum concentrati ons from workers exposed at facilities that manufacture PFOA or its salts ranged from 840 to 6800 ng/mL (isomers not described). The reported serum range for all workers was 0 to 020417 ng/mL (isomers not described). Analysis by [employer] Liquid Chromatogra phy/ Tandem Mass Spectrometr y (LC-MS/MS) [id number]-AF- C-66th [facility] [place] [employer] Perfluoron onanoic Acid LC 0.38 ng/mL 05/11 Result Comment: Reporting Limit: 0.050 ng/mL Synonym(s): PFNA Comment: Substance(s ) known to interfere with the identity and/or quantity of the reported result: Perfluorode canoic Acid (PFDA) Population reference interval derived from [facility] data (n=151) is usually less than 1.4 ng/mL (90% CI, 1.2-2.3 ng/mL) (97.5th percentile) General [place] population from [facility] () (w=2885) (isomers not described) is typically below 1.9 ng/mL (95% CI, 1.5-2.2 ng/mL) (95th percentile) Analysis by [employer] Liquid Chromatogra phy/ Tandem Mass Spectrometr y (LC-MS/MS) 0AAF- C66 [facility] Miscella neous Sendouts Perfluoroo ctanesulfo winnie Acid LC 2.2 ng/mL 05/11 Result Comment: Reporting Limit: 0.50 ng/mL Synonym(s): PFOS Population reference interval derived from [facility] data (n=151) is usually less than 12 ng/mL (90% CI, 7.7-15 ng/mL) (97.5th percentile) General [place] population from [facility] () (i=9128) for the linear isomer is typically below 13 ng/mL (95% CI, 10-18 ng/mL) (95th percentile) Analysis by [employer] Performance Liquid Chromatogra phy/ Tandem Mass Spectrometr y (LC-MS/MS) This test was developed and its performance characteris tics determined by [facility]. It has not been cleared or approved by the US Food and Drug Administrat ion. Performed At: [address] [id number] Shankar Spring PhD Ph:[phone] 49 AF [facility] Vital Signs Combined list of inpatient and outpatient Vital Signs from Department of Defense and Veterans Affairs, ranging from 12 months to all on record, depending upon the facility. Vital Sign Value Date Comments Source SYSTOLIC BLOOD PRESSURE 110 02/26/2024 15:07:17 [place] DIASTOLIC BLOOD PRESSURE 71 02/26/2024 15:07:17 [place] PULSE OXIMETRY 98 02/26/2024 15:07:17 [place] WEIGHT 277 02/26/2024 15:07:17 [place] BMI 34 kg/m2 02/26/2024 15:07:17 [place] PAIN 0 02/26/2024 15:07:17 [place] HEIGHT 76 02/26/2024 15:07:17 [place] TEMPERATURE 96.9 02/26/2024 15:07:17 [place] PULSE 76 02/26/2024 15:07:17 [place] RESPIRATION 20 02/26/2024 15:07:17 [place] SYSTOLIC BLOOD PRESSURE 99 10/19/2023 09:51:55 [place] DIASTOLIC BLOOD PRESSURE 62 10/19/2023 09:51:55 [place] PULSE OXIMETRY 96 10/19/2023 09:51:55 [place] WEIGHT 227.2 10/19/2023 09:51:55 [place] BMI 28 kg/m2 10/19/2023 09:51:55 [place] TEMPERATURE 97.9 10/19/2023 09:51:55 [place] PULSE 88 10/19/2023 09:51:55 [place] SYSTOLIC BLOOD PRESSURE 112 08/17/2023 08:57:31 [place] DIASTOLIC BLOOD PRESSURE 68 08/17/2023 08:57:31 [place] PULSE OXIMETRY 98 08/17/2023 08:57:31 [place] [...] ADM Date DC Date Status Disposition [place] [address](LEXIE Rios) OUTPATIENT [id number] Notes Entered by: NANCI SANTOS 26 Feb [id number] ------- ------- ------- ------- -- COLD PACK EVA BERRY Ita 02/26 Released w/o Limitations [facility] [place] [address](Ita Rios) [facility] [place] [address]([facility] Marina Barrientos) OUTPATIENT [id number] 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 ALEXIA COBB 03/25 Released w/o Limitations [facility] [place] [address]([employer] [facility] Danny Ramsey d) Theater Facility OUTPATIENT [id number] Theater Provider 09/12 Released w/o Limitations [facility] OUTPATIENT [id number] Theater Provider 10/01 Released w/o Limitations [facility] OUTPATIENT [id number] Theater Provider 10/08 Released w/o Limitations [facility] OUTPATIENT [id number] Theater Provider 10/16 Released w/o Limitations Theater Fac[facility] Theater Facility OUTPATIENT [id number] Theater Provider 12/08 Released w/o Limitations Theater Facilit y [facility] [place] [facility] Outpatient Encounter [id number] 02/27 [place] [facility] [place] [facility] Outpatient Encounter [id number] 06/21 [place] [facility] [place] OFFICE O/P EST HI 40 MIN [id number] Diagnos is: ICD-10- CM N52.9 Male erectil e dysfunc tion, unspeci fied ADRIANA,DA VID A 08/16 [place] PSYCH DIAGNOSTIC EVALUATION [id number] Diagnos is: ICD-10- CM F33.2 Major depress v disorde r, recurre nt severe w/o psych feature s WILEY REY 09/03 [place] [facility] [facility] Outpatient Encounter [id number] 09/07 [place] [facility] [place] [facility] IMMUNIZATI ON ADMIN [id number] ERICH WRIGHT VID A 10/18 [place] [place] [facility] OFFICE O/P EST LOW 20 MIN [id number] Diagnos is: ICD-10- CM M54.50 Low back pain, unspeci fied ERICH WRIGHT VID A 10/18 [place] [facility] [place] [facility] Outpatient Encounter [id number] 1.11/27 [place] [place] [facility] [id number] AMDS Between Visit [id number] 12/03 Discharge Disposition: Home or Self Care [id number] AMDS [facility] [place] [facility] Outpatient Encounter 1.12/18 [place] [place] [facility] QNHP OL DIG ASSMT&MGMT 5-10 [id number] Diagnos is: ICD-10- CM Z51.81 Encount er for therape utic drug level monitor NINFA Queen A 12/20 [facility] [place] [facility] Outpatient Encounter [id number] 01/22 [place] [facility] [place] [facility] Outpatient Encounter [id number] 01/31 [place] [facility] [place] [facility] Outpatient Encounter [id number] 1. Diagnos is: ICD-10- CM F32.9 Major depress bailey disorde r, single episode , unspeci fied EVA SALGUERO E 01/31 [place] [place] [facility] OFFICE O/P EST MOD 30 MIN [id number] Diagnos is: ICD-10- CM N52.9 Male erectil e dysfunc tion, unspeci fied WRIGHT,DA VID A 02/25 [place] [facility] [place] [facility] Outpatient Encounter [id number] 03/11 [place] [facility] [place] [place] [facility] Outpatient Encounter [id number] 03/16 [place] [facility] [place] [facility] Outpatient Encounter [id number] 04/04 [place] [facility] SYNCH [place] 60 [id number] Diagnos is: ICD-10- CM F43.12 Post-tr aumatic stress disorde r, chronic NAHOMY,KAMOLI KA 04/19 [facility] [place] [facility] Outpatient Encounter [id number] 04/19 [place] [facility] Procedures Combined list of: 1) Procedures from Department of Veterans Affairs facilities going back up to thelast 18 months, not all [place] non-surgical procedures are included; 2) All procedures from the Department of Defense facilities. Procedure Procedure Type Code Date Perfomer Comments [facility] e Spirometry Spirometry 43271 03/25/19 14 ALEXIA COBB [facility] Extensive Color Vision Testing Extensive Color Vision Testing 42855 03/25/19 ALEXIA KYLE Screening Test Of Visual Acuity, Quantitative, Bilateral Screening Test Of Visual Acuity, Quantitative, Bilateral 79986 03/25/19 14 ALEXIA COBB [facility] ECG 12-Lead With Interpretation And Report ECG 12-Lead With Interpretation And Report [id number] 03/25/19 14 ALEXIA COBB [facility] SPIROMETRY, INCLUDING GRAPHIC RECORD, TOTAL AND TIMED VITAL CAPACITY, EXPIRATORY FLOW RATE MEASUREMENT(S), WITH OR WITHOUT MAXIMAL VOLUNTARY VENTILATION 03/25/19 14 [facility] THERAPEUTIC, PROPHYLACTIC, OR DIAGNOSTIC INJECTION (SPECIFY SUBSTANCE OR DRUG); SUBCUTANEOUS OR INTRAMUSCULAR 03/05/19 14 [facility] No data available for this section Ambulato ry Pharmacy Social History Combined list of available smoking, tobacco, and other social history from Department of Defense and Veterans Affairs facilities. Social History Type Response Date Comment Sour e Tobacco smoking status [facility] NEVER USED 08/17/19 24 [place] This section is an empty soc ial [...] 04/19/2024 AMBULATORY - PSYCHIATRY AMBULATORY - PSY[facility] [place] [facility] 05/13/2024 AMBULATORY - MEDICINE AMBULATORY - MEDICI [place] 04/08/2024 Consult Order [facility] Cons Supervisor Plate Pasting's Choice [place] Functional Status Combined list of recent functional and cognitive assessments recorded at Department of Defense and Veterans Affairs ([place] Functional [place] Measurement (FIM) Scale: 1 = Total Assistance (Subject = 0% +), 2 = Maximal Assistance (Subject = 25% +), 3 = Moderate Assistance (Subject = 50% +), 4 = Minimal Assistance (Subject = 75% +), 5 = Supervision, 6 = Modified [place] (Device), 7 = Complete [place] (Timely, Safely). Assessment Date/Time Source Assessment Type Assessment Skill Assessment Score Assessment Details No data available for this section
[2024-04-20 16:11] LABS: CT PCR NOT DETECTED (Not Detect.); NG PCR NOT DETECTED (Not Detect.)
== END 2024-04-19 12:59 | disposition home or self-care (01) ==
LOC: HO.LNP 12:58
PROVIDERS: Physician Assistant Medical; PCP Family Medicine; Visit Provider Physician Assistant
DX: L30.9 Dermatitis, unspecified (principal)
CPT/HCPCS: 87491; 87591; 99212

== ENCOUNTER 2024-04-20 14:32 | Outpatient (REF) | payer OTHER, SELFPAY | END 2024-04-20 14:33 | disposition home or self-care (01) | LOC: HO.LAB 14:32 | PROVIDERS: Visit Provider Physician Assistant Medical | DX: Z13.89 Encounter for screening for other disorder (principal) ==

== ENCOUNTER 2024-05-08 11:20 | Outpatient (REF) | payer OTHER, SELFPAY ==
--- OUTSIDE RECORDS SUMMARY | 2024-05-08 14:30 | XMS_ITS | Clinical Summary ---
Author Organization [facility] Address [address] [place] [address] Care Team Providers Care Clerical Adviser Name Role Phone Pcp, No Primary Care [...] complete this topic Insurance [employer] [address] [place] [address] Care Teams Clerical Adviser Relationship Specialty Start Date End Date Pcp, [place] [address] PCP - General 04/25/23
--- OUTSIDE RECORDS SUMMARY | 2024-05-08 14:30 | XMS_ITS | Encounter Summary ---
Author Organization [facility] Address [address] [place] [address] Care Team Providers Care Emergency Telecommunications Dispatcher Name Role Phone Pcp, No Primary Care Provider Unavailabl e Reason for Referral * Imaging (Routine) - Closed Specialty Diagnoses / Procedures Referred By Contac t Referred To Contact Radiology Diagnoses Chronic sinusitis, unspecified Procedures XR SINUSES 4 VIEWS Keli Ferrera NP [address] [place] [address] Phone: tel: fax: [facility] Radiology - [place] Phone: tel: fax: Referral ID Status Reason Start Date Expiration Date V isits Requested Visits Authorized [id number] Closed Perform Procedure 04/25/2023 04/24/2024 1 1 Encounter Details Date Type Department Care Team (Late st Contact Info) Description 04/25/2023 Ancillary Orders [facility] Radiology, Outpatient Center (Diag Rad) [address] [facility] [place] [address] Keli Ferrera NP [address] [place] [address] Chronic sinusitis, unspecified (Primary Dx) Social History [...] clear but see comments above. Keli Ferrera SUPERVISOR SOUND TECHNICIAN IMG XR PROCEDURES Final R esult documented in this encounter Visit Diagnoses Diagnosis Chronic sinusitis, unspecified- Primary Chronic sinusitis, unspecified documented in this encounter Care Teams Emergency Telecommunications Dispatcher Relationship Specialty Start Date End Date Pcp, [place] [address] PCP - General 04/25/23 documented as of this encounter
[2024-05-08 16:08] LABS: CT PCR NOT DETECTED (Not Detect.); NG PCR NOT DETECTED (Not Detect.)
[2024-05-09 04:00] LABS: HIV AB/AG Nonreactive (Nonreactive); HIV Num 1 0.06 S/CO (0.00-0.99)
[2024-05-09 10:03] LABS: RPR Rapid Plasma Reagin NON-REACTIVE (NON-REACTIVE)
== END 2024-05-08 11:21 | disposition home or self-care (01) ==
LOC: HO.HMGCLDS 11:20
PROVIDERS: PCP Family Medicine; Visit Provider Physician Assistant
DX: N50.89 Other specified disorders of the male genital organs (principal); Z11.4 Encounter for screening for human immunodeficiency virus [HIV]; R30.0 Dysuria; Z20.2 Contact with and (suspected) exposure to infections with a predominantly sexual mode of transmission
CPT/HCPCS: 36415; 81003; 86592; 87255; 87389; 87491; 87591; 99212

== ENCOUNTER 2024-05-08 11:20 | Outpatient (AMB) | payer OTHER, SELFPAY ==
--- NOTE | 2024-05-08 11:51 | AM.OFFWIN_ITS ---
Intake Vital Signs 05/08/24 11:52 BP 124/78 Blood Pressure Location Lt brachial Position Sitting Pulse 83 Pulse Source Pulse Oximeter Pulse Oximetry (%) 98 Oxygen Delivery Method Room Air Intake Visit Reasons: EP UTI/std testing?? Intake Note: Patient here for burning on urination, slight rash which started in a new spot a couple of days ago. Patient Tobacco Use Status: Never used Tobacco Allergies No Known Allergies Allergy (Verified 05/08/24 11:52) HPI HPI Comments History of Present Illness Details Patient presents for ? UTI vs STD He was seen 04/19 for irritation to head of penis At that time he was diagnosed with dermatitis and recommended switching condom brands and trialing aquaphor. He had no urinary complaints GC and chlamydia at that visit were negative. He said irritation resolved Partner + UTI recently Last night he had slight dysuria He said different rash noted since last night He said dysuria progressive No urgency and frequency No incontinence No fever or chills No abdominal pain Irritated areas on differet spot; he said those spots are only painful with friction but doesnt notice them No discharge appreciated [facility] Medical History High serum estradiol Surgical History History of surgery Family History Mother No problems noted. Father No problems noted. Social History (Updated 04/03/24 @ 11:52 by Ana Cisneros CMA) Housing: House Alcohol intake: current Patient Tobacco Use Status: Never used Tobacco e-Cigarette/Vaping Use: Never Used Second Hand Smoke Exposure: No service: Yes Current occupational status: employed Current occupation: rt handed/[employer] Current occupational exposures/hazards: Yes Cognitive needs: No Hearing needs: No Vision needs: No Review of Systems Const Denies chills and Denies fever(s) GI Denies abdominal pain, Denies constipation, Denies diarrhea and Denies vomiting Denies hematuria, Denies difficulty urinating, Reports genital lesions, Reports dysuria, Denies penile discharge, Denies testicular pain, Denies urinary frequency, Denies urinary hesitancy and Denies urinary urgency Musc Denies myalgias Skin/Breast Reports new lesions (genital) Physical Exam Vital Signs: Last Vital Signs Pulse 83 05/08/24 11:52 BP 124/78 05/08/24 11:52 Pulse Ox 98 05/08/24 11:52 Oxygen Delivery Method Room Air 05/08/24 11:52 General: Non-toxic, NAD. Speaking full sentences. Skin: Warm dry throughout Eye: EOMI Respiratory: No respiratory distress : declined ward secretary. He has no edema or erythema to head of penis. he has 3 small pustule slightly erythematous lestion to R side of penis proximal to head. Similar singular lesion to anterior proximal shaft. No active drainage or discharge. No vesicles noted Neurology: Alert. No aphasia or facial droop. Gait without abnormality Psych: Good mood and affect Results AMB Urinalysis, Automated UA Leukoctes 0 Laurie/uL Last Edit by SONIA Dash on 05/08/24 12:05 UA Nitrite Negative Last Edit by Balwinder Lang CCM on 05/08/24 12:05 UA Urobilinogen 0.2 mg/dL Last Edit by Balwinder Lang CCM on 05/08/24 12:05 UA Protein 0 mg/dL Last Edit by Balwinder Lang CCM on 05/08/24 12:05 UA pH 6.0 Last Edit by Balwinder Lang CCM on 05/08/24 12:05 UA Blood 0 Basilio/uL Last Edit by Balwinder Lang CCM on 05/08/24 12:05 UA Specific [place] 1.015 Last Edit by Balwinder Lang CCM on 05/08/24 12:05 UA Ketone Negative Last Edit by Balwinder Lang CCM on 05/08/24 12:05 UA Bilirubin 0 mg/dL Last Edit by Balwinder Lang CCM on 05/08/24 12:05 UA Glucose 0 mg/dL Last Edit by Balwinder Lang CCM on 05/08/24 12:05 Results Reviewed Results Reviewed: Laboratory Last Values Urine pH (Auto) 6.0 05/08/24 12:04 Specific [place] (Auto) 1.015 05/08/24 12:04 Urine Protein (Auto) 0 mg/dL 05/08/24 12:04 Glucose (UA)(Auto) 0 mg/dL 05/08/24 12:04 Urine Ketones (Auto) Negative 05/08/24 12:04 Urine Blood (Auto) 0 Basilio/uL 05/08/24 12:04 Urine Nitrite (Auto) Negative 05/08/24 12:04 Urine Bilirubin (Auto) 0 mg/dL 05/08/24 12:04 Urine Urobilinogen (Auto) 0.2 mg/dL 05/08/24 12:04 Leukocyte Esterase (Auto) 0 Laurie/uL 05/08/24 12:04 Assessment & Plan Assessment & Plan (1) Dysuria: Code(s): R30.0 - Dysuria Plan: Pt seen and evaluated U/a: negative no culture indicated (2) Genital lesion, male: Code(s): N50.89 - Other specified disorders of the male genital organs Plan: Exam completed Pt said non-painful but herpes culture obtained and sent to lab He wanted full STI work up including repeat GC/Chlamydia testing HIV, syphilis serum ordered Herpes lesions culture ordered GC and chlamydia urine ordered Discussed avoid further friction Can use neosporin but not necissarily needed Recommended daily soap and water wash and dry area to avoid excessive moisture All questions answered at time of discharge Plan urine from today, normal Orders: Orders AMB Urinalysis Automated Today Z13.9 - Encounter for screening, unspecified CT NG by PCR Today R30.0 - Dysuria RPR Monitor reflex titer Today N50.89 - Other specified disorders of the male genital organs HIV Ab/Ag Today N50.89 - Other specified disorders of the male genital organs Herpes Virus Culture Today N50.89 - Other specified disorders of the male genital organs Coding Level of Care Code Est Pt Level 3 (98570) Diagnoses Dysuria R30.0 Genital lesion, male N50.89
[2024-05-08 11:52] VITALS: BP 124/78; PULSE 83; O2SAT 98
--- OUTSIDE RECORDS SUMMARY | 2024-05-08 13:24 | XMS_ITS | Encounter Summary ---
Author Organization [facility] Address [address] [place] [address] Care Team Providers Care Battery Container Tester Aluminum Name Role Phone Pcp, No Primary Care Provider Unavailabl e Reason for Referral * Imaging (Routine) - Closed Specialty Diagnoses / Procedures Referred By Contac t Referred To Contact Radiology Diagnoses Chronic sinusitis, unspecified Procedures XR SINUSES 4 VIEWS Keli Ferrera NP [address] [place] [address] Phone: tel: fax: [facility] Radiology - [place] Phone: tel: fax: Referral ID Status Reason Start Date Expiration Date V isits Requested Visits Authorized [id number] Closed Perform Procedure 04/25/2023 04/24/2024 1 1 Encounter Details Date Type Department Care Team (Late st Contact Info) Description 04/25/2023 Ancillary Orders [facility] Radiology, Outpatient Center (Diag Rad) [address] [facility] [place] [address] Keli Ferrera NP [address] [place] [address] Chronic sinusitis, unspecified (Primary Dx) Social History [...] clear but see comments above. Keli Ferrera COREMAKER APPRENTICE IMG XR PROCEDURES Final R esult documented in this encounter Visit Diagnoses Diagnosis Chronic sinusitis, unspecified- Primary Chronic sinusitis, unspecified documented in this encounter Care Teams Battery Container Tester Aluminum Relationship Specialty Start Date End Date Pcp, [place] [address] PCP - General 04/25/23 documented as of this encounter
--- OUTSIDE RECORDS SUMMARY | 2024-05-08 13:25 | XMS_ITS | Clinical Summary ---
Author Organization [facility] Address [address] [place] [address] Care Team Providers Care Flying Shear Operator Name Role Phone Pcp, No Primary [...] complete this topic Insurance [employer] [address] [place] [address] Care Teams Flying Shear Operator Relationship Specialty Start Date End Date Pcp, [place] [address] PCP - General 04/25/23
== END 2024-05-08 12:31 | disposition home or self-care (01) ==
PROVIDERS: PCP Family Medicine; Visit Provider Physician Assistant
DX: R30.0 Dysuria (principal); N50.89 Other specified disorders of the male genital organs; Z13.9 Encounter for screening, unspecified